=== PATIENT | male | born 1960 | race Caucasian/White ===

== ENCOUNTER 2021-11-06 14:27 | Outpatient (CLI) | payer SELFPAY | END 2021-11-06 14:28 | disposition home or self-care (01) | LOC: AMB 11-07 07:21 | PROVIDERS: Visit Provider Student in an Organized Health Care Education/Training Program | DX: R41.82 Altered mental status, unspecified (principal) ==

== ENCOUNTER 2023-08-18 20:26 | Outpatient (CLI) | payer MEDICAID, SELFPAY | END 2023-08-18 20:27 | disposition home or self-care (01) | LOC: AMB 08-23 15:11 | PROVIDERS: Visit Provider Emergency Medicine | DX: F10.20 Alcohol dependence, uncomplicated (principal) | CPT/HCPCS: A0425; A0427 ==

== ENCOUNTER 2023-08-18 21:00 | Inpatient (IN) | payer MEDICAID, SELFPAY ==
[2023-08-18] VITALS (21 sets, daily range): BP systolic 212–252; BP diastolic 126–156; PULSE 95–119; RESP 16; TEMP 36.7; O2SAT 89–99; BMI 23.9
--- NOTE | 2023-08-18 21:44 | ED.GENADULT ---
HPI - General Adult General Date Seen: 08/18/23 Chief complaint: Alcohol/Intoxication Stated complaint: ETOH Time Seen by Provider: 08/18/23 21:08 Source: patient, family, EMS, RN notes reviewed and old records reviewed Mode of arrival: EMS Limitations: other History of Present Illness HPI narrative: Patient is a 62-year-old male here with his son, brought in by ambulance after he was noted to be confused in shaky at home. He apparently quit drinking cold turkey last night, his son said he has had significant problems with withdrawal in the past so on noting this his son, with whom he lives, gave him a couple shots of alcohol. He feels like he has improved since then, the shaking has stopped any seems less confused. There is no reported trauma or head injury, no reported illness, fevers, vomiting, patient denies headache or abdominal pain. They denied anything has happened in the past day that led to him deciding to quit drinking aside from the fact that his family was upset about his alcohol use. Son says he does not use any other substances aside from smoking cigarettes. Related Data Home Medications ?Medication ?Instructions ?Recorded ?Confirmed No Known Home Medications 08/18/23 08/18/23 Allergies Allergy/AdvReac Type Severity Reaction Status Date / Time No Known Drug Allergies Allergy Verified 08/18/23 21:10 Review of Systems Status of ROS: Reports: 10 or more systems reviewed and unremarkable except as noted in History and below [facility] Social History How often do you have a drink containing alcohol: 4 or more times a week How many standard drinks containing alcohol do you have on a typical day: 5 or 6 How often do you have six or more drinks on one occasion: Daily or almost daily AUDIT-C Alcohol total score: 10 Non-prescribed substance use: denies use Exam Narrative: Exam Narrative: Vital signs as noted above. In general, an alert, thin elderly male. Looks older than his stated age. Head: Normocephalic, atraumatic. Eyes: Pupils are equal reactive. Extraocular movements are full. Conjunctivae are normal. ENT: Mucous membranes are moist. Neck: Supple without lymphadenopathy. Heart: Mildly tachycardic, regular. Lungs: Clear bilaterally. No increased work of breathing, crackles or wheezes. Abdomen: Soft and nontender. No organomegaly. Extremities: Well perfused. No edema. No calf tenderness. Pulses intact. Neurologic: Patient is alert and oriented to person and place. He did initially say that it was 1993, but when I asked him if he would be surprised that it was 2023, he said that that was what he meant. Speech is fluent. Face is symmetric. Moves all extremities equally. No tremor at this time. Affect: Normal. Skin: Warm and dry. Well perfused. Const: Vital Signs, click to edit/add: Vital Signs - 24 hr 08/18/23 21:08 08/18/23 21:41 08/18/23 21:45 Temperature 98.1 F Pulse Rate 113 H 112 H Pulse Rate [Pulse Oximeter] 104 H Respiratory Rate 16 Blood Pressure Blood Pressure [Ri ght Upper Arm] 252/135 H Pulse Oximetry 95 91 93 Oxygen Delivery Me thod Room Air Oxygen Flow Rate 08/18/23 21:48 08/18/23 22:00 08/18/23 22:03 Temperature Pulse Rate 119 H 117 H 118 H Pulse Rate [Pulse Oximeter] Respiratory Rate Blood Pressure 245/144 H 244/138 H Blood Pressure [Ri ght Upper Arm] Pulse Oximetry 92 91 Oxygen Delivery Me thod Oxygen Flow Rate 08/18/23 22:15 08/18/23 22:18 08/18/23 22:19 Temperature Pulse Rate 108 H 114 H 114 H Pulse Rate [Pulse Oximeter] Respiratory Rate Blood Pressure 236/129 H Blood Pressure [Ri ght Upper Arm] Pulse Oximetry 90 Oxygen Delivery Me thod Oxygen Flow Rate 08/18/23 22:28 08/18/23 22:30 08/18/23 22:33 Temperature Pulse Rate 112 H 117 H Pulse Rate [Pulse Oximeter] Respiratory Rate Blood Pressure 234/131 H Blood Pressure [Ri ght Upper Arm] Pulse Oximetry 97 97 91 Oxygen Delivery Me thod Room Air Nasal Cannula Nasal Cannula Oxygen Flow Rate 1 1 1 08/18/23 22:45 08/18/23 22:50 08/18/23 23:00 Temperature Pulse Rate 109 H 101 H 114 H Pulse Rate [Pulse Oximeter] Respiratory Rate Blood Pressure 217/156 H Blood Pressure [Ri ght Upper Arm] Pulse Oximetry 96 93 95 Oxygen Delivery Me thod Nasal Cannula Oxygen Flow Rate 1 08/18/23 23:03 08/18/23 23:15 08/18/23 23:18 Temperature Pulse Rate 111 H 113 H Pulse Rate [Pulse Oximeter] Respiratory Rate Blood Pressure 229/153 H 222/140 H Blood Pressure [Ri ght Upper Arm] Pulse Oximetry 93 89 94 Oxygen Delivery Me thod Room Air Room Air Room Air Oxygen Flow Rate 08/18/23 23:30 08/18/23 23:33 08/18/23 23:48 Temperature Pulse Rate 99 95 Pulse Rate [Pulse Oximeter] Respiratory Rate Blood Pressure 212/130 H 214/126 H Blood Pressure [Ri ght Upper Arm] Pulse Oximetry 97 99 Oxygen Delivery Me thod Oxygen Flow Rate 08/19/23 00:03 08/19/23 00:17 Temperature Pulse Rate 95 Pulse Rate [Pulse Oximeter] Respiratory Rate 18 Blood Pressure 209/130 H 198/118 H Blood Pressure [Ri ght Upper Arm] Pulse Oximetry 94 Oxygen Delivery Me thod Oxygen Flow Rate Documenting provider has reviewed patient's vital signs: yes Course Course ED Course: Patient presents by ambulance with altered mentation and shaking at home, improved by ingestion of alcohol. Suspect withdrawal. I did order some Ativan for here, he is not showing signs of active withdrawal right now, aside from marked hypertension and tachycardia. Note that he did have a previous visit a few years ago with confusion, was significantly hypertensive at that visit as well. Unclear whether he was ever prescribed any antihypertensive. Neurologic exam is nonfocal at this time. Diagnostic considerations include ruling out other acute processes such as acute coronary syndrome, pancreatitis, GI bleed, infection. Patient had an EKG which showed a narrow complex tachycardia, it is somewhat irregular but there appears to be P-waves. Computer reads this as a sinus tachycardia with PVCs or fusion complexes. The rate is 125. Labs were notable for [place] [address], hemoglobin of 14, normal platelets. Electrolytes notable for potassium of 2.9, I gave him 40 mEq here. Sodium is 134. BUN creatinine within normal limits. Blood sugar was 129, LFTs really unremarkable, AST of 38. Lipase was 260 and TSH was normal. Tylenol level negative blood alcohol level of 0.15. Troponin of 0.02. He had a 2 L of fluid, remained tachycardic. He was also still quite hypertensive so I elected to give him some labetalol. He says he plans to stop drinking, as such, despite absence of significant symptoms of withdrawal at this moment such as headache, tactile symptoms, anxiety, tremulousness, I do think he will need medical management of withdrawal. With his ongoing hypertension and tachycardia, he is not suitable for detox. Recommend admission to the hospital for management of alcohol withdrawal, potassium replacement, management of hypertension and tachycardia. Vital Signs Vital signs: Initial Vital Signs Temperature 98.1 F 08/18/23 21:08 Temperature Source Temporal Artery Scan 08/18/23 21:08 Pulse Rate 104 H 08/18/23 21:08 Respiratory Rate 16 08/18/23 21:08 Blood Pressure 252/135 H 08/18/23 21:08 Blood Pressure Mean 174 H 08/18/23 21:08 Blood Pressure Position Sitting 08/18/23 21:08 Pulse Oximetry 95 08/18/23 21:08 Oxygen Delivery Method Room Air 08/18/23 21:08 Vital Signs Temperature 98.1 F 08/18/23 21:08 Pulse Rate 104 H 08/18/23 21:08 Respiratory Rate 16 08/18/23 21:08 Blood Pressure 252/135 H 08/18/23 21:08 Pulse Oximetry 95 08/18/23 21:08 Oxygen Delivery Method Room Air 08/18/23 21:08 Temperature 98.1 F 08/18/23 21:08 Pulse Rate 95 08/19/23 00:17 Respiratory Rate 18 08/19/23 00:17 Blood Pressure 198/118 H 08/19/23 00:17 Pulse Oximetry 94 08/19/23 00:17 Oxygen Delivery Method Room Air 08/18/23 23:18 Oxygen Flow Rate 1 08/18/23 22:45 Medications Administered Medications: Discontinued Medications Generic Name Dose Route Start Last Admin Trade Name Freq PRN Reason Stop Dose Admin Sodium Chloride 1,000 mls @ 1,000 mls/hr 08/18/23 21:30 08/18/23 22:50 0.9 % Sodium Chloride 1000 Ml IV 08/18/23 22:29 Infused .Q1H NATALY Infusion Sodium Chloride 1,000 mls @ 1,000 mls/hr 08/18/23 23:15 08/18/23 23:12 0.9 % Sodium Chloride 1000 Ml IV 08/19/23 00:14 1,000 mls/hr .Q1H NATALY Administration Labetalol HCl 5 mg 08/18/23 23:08 08/18/23 23:22 Labetalol Hcl 5 Mg/Ml Inj IVP 08/18/23 23:09 5 mg ONCE ONE Administration Lorazepam 2 mg 08/18/23 21:19 08/18/23 22:04 Lorazepam 2 Mg/Ml Inj IVP 08/18/23 21:20 Not Given ONCE ONE Lorazepam 1 mg 08/18/23 21:48 08/18/23 22:08 Lorazepam 2 Mg/Ml Inj IVP 08/18/23 21:49 1 mg ONCE ONE Administration Potassium Chloride 40 meq 08/18/23 22:27 08/18/23 22:50 Potassium Chloride 10 Meq Capsule Er PO 08/18/23 22:28 40 meq ONCE ONE Administration Medical Decision Making Lab Data Labs: Lab Results 08/18/23 Range/Units 21:45 WBC 12.74 H (4.50-11.00) K/uL RBC 3.97 L (4.30-5.90) m/uL Hgb 14.4 (13.5-17.5) gm/dL Hct 41.8 (37.0-53.0) % MCV 105 H (80-100) fL MCH 36 H (26-34) pg MCHC 34 (32-36) gm/dL RDW Coeff of Briana 14.2 (11.5-15.5) % Plt Count 239 (140-440) K/uL Neut % (Auto) 74.5 H (42.0-72.0) % Lymph % (Auto) 17.7 L (20-44) % [place] % (Auto) 5.1 (0.0-11.0) % Eos % (Auto) 0.7 (0.0-7.0) % Baso % (Auto) 0.7 (0.0-3.0) % Neut # (Auto) 9.50 H (1.7-7.0) K/uL Lymph # (Auto) 2.30 (0.90-2.90) K/uL [place] # (Auto) 0.60 (0.00-0.90) K/UL Eos # (Auto) 0.10 (0.00-0.50) K/uL Baso # (Auto) 0.10 (0.00-0.30) K/uL Abs Immat Gran (auto) 0.20 (0.00-0.30) K/uL Imm/Tot Granulo (auto) 1.3 % Sodium 134 L (135-149) mmol/L Potassium 2.9 L* (3.6-5.1) mmol/L Chloride 97 (96-114) mmol/L Carbon Dioxide 28 (20-32) mmol/L Anion Gap 9 (7-15) mEq/L BUN 9 (7-30) mg/dL Creatinine 0.6 (0.5-1.5) mg/dL Estimated Creat Clear 60.85 Estimated GFR 108 ml/min Glucose 129 H (60-115) mg/dL Calcium 8.9 (8.4-10.6) mg/dL Total Bilirubin 0.9 (0.1-1.5) mg/dL Direct Bilirubin 0.4 (0.0-0.5) mg/dL AST 38 H (12-35) U/L ALT 13 (4-50) U/L Alkaline Phosphatase 84 (40-150) U/L Total Protein 7.7 (6.0-8.3) g/dL Albumin 4.7 (3.3-5.0) g/dL Lipase 260 (23-300) U/L TSH 2.680 (0.270-4.200) uIU/mL Acetaminophen < 10.0 L (10.0-30.0) ug/mL Ethyl Alcohol 0.15 H (0.01-0.03) % POC Troponin I 0.02 (0.01-0.04) ng/ml
[2023-08-18] MEDS: 0.9 % SODIUM CHLORIDE 1000 ml 1,000 ML IV ×2 (22:01→23:12)
[2023-08-18 22:03] LABS: Basophils Percent Auto 0.7 % (0.0-3.0); Eosinophils Percent Auto 0.7 % (0.0-7.0); Hematocrit 41.8 % (37.0-53.0); Hemoglobin* 14.4 gm/dL (13.5-17.5); Immature Granulocytes Pct Auto 1.3 %; Lymphocytes Percent Auto 17.7 % (20-44); Mean Corpuscular HGB Conc 34 gm/dL (32-36); Mean Corpuscular Hemoglobin 36 pg (26-34); Mean Corpuscular Volume 105 fL (80-100); Monocytes Percent Auto 5.1 % (0.0-11.0); Neutrophils Percent Auto 74.5 % (42.0-72.0); Platelet Count* 239 K/uL (140-440); RDW Coefficient of Variation % 14.2 % (11.5-15.5); Red Blood Count 3.97 m/uL (4.30-5.90); White Blood Count* 12.74 K/uL (4.50-11.00)
[2023-08-18 22:08] LABS: Slide Review Reflex No
[2023-08-18] MEDS: LORazepam 2 MG/ML inj 1 MG IVP (22:08)
[2023-08-18 22:16] LABS: Albumin* 4.7 g/dL (3.3-5.0)
[2023-08-18 22:17] LABS: Chloride* 97 mmol/L (96-114); Sodium* 134 mmol/L (135-149)
[2023-08-18 22:19] LABS: Alanine Aminotransferase* 13 U/L (4-50); Alkaline Phosphatase* 84 U/L (40-150); Aspartate Amino Transferase* 38 U/L (12-35); Bilirubin Direct* 0.4 mg/dL (0.0-0.5); Bilirubin Total* 0.9 mg/dL (0.1-1.5); Lipase* 260 U/L (23-300); Total Protein* 7.7 g/dL (6.0-8.3)
[2023-08-18 22:20] LABS: Anion Gap 9 mEq/L (7-15); Blood Urea Nitrogen* 9 mg/dL (7-30); Carbon Dioxide* 28 mmol/L (20-32); Creatinine* 0.6 mg/dL (0.5-1.5); Est. Creatinine Clearance* 60.85; Estimated Glomerular Filt Rate 108 ml/min; Ethanol* 0.15 % (0.01-0.03); Glucose* 129 mg/dL (60-115)
[2023-08-18 22:21] LABS: Calcium* 8.9 mg/dL (8.4-10.6)
[2023-08-18 22:23] LABS: Acetaminophen* < 10.0 ug/mL (10.0-30.0)
[2023-08-18 22:24] LABS: Potassium* 2.9 mmol/L (3.6-5.1)
[2023-08-18 22:32] LABS: Troponin, Point-of-Care* 0.02 ng/ml (0.01-0.04)
[2023-08-18] MEDS: POTASSIUM CHLORIDE 10 MEQ CAPSULE ER 40 MEQ PO (22:50)
[2023-08-18] MEDS: LABETALOL HCL 5 MG/ML inj IVP (23:22)
[2023-08-19] VITALS (26 sets, daily range): BP systolic 102–209; BP diastolic 71–130; PULSE 85–123; RESP 18–24; TEMP 36.5–37.4; O2SAT 92–96; BMI 17.9
[2023-08-19] MEDS: LORazepam 2 MG/ML inj IVP ×4 (01:22→17:58)
--- NOTE | 2023-08-19 02:02 | W.PM.THH&P_ITS ---
Telehealth- H&P: HPI History of Present Illness Date Seen: 08/19/23 Chief complaint: ETOH Narrative: José Luis Hanson is seen as an Interactive Telehealth visit. José Luis Hanson is a 62 year old male who is Seen in his hospital room at [facility] with the assistance of nursing staff. He has been admitted through the emergency room. Patient came up to the floor a little bit tremulous seem to be confused. He had a very high blood pressure. It was felt to be consistent with alcohol wit hdrawal. He was given Ativan. When I am trying to see him he is somewhat noncooperative. He is unable to provide any history. History is taken from discussion with the emergency room physician. José Luis was brought into the emergency room by his son by ambulance as he was more confused and shaky at home. He quit drinking cold turkey last night as he was confronted by family. Today he started showing symptoms alcohol withdrawal he was given 2 shots of alcohol by his son and brought into the emergency room. In the emergency room he was found to be showing signs of alcohol withdrawal he was hypertensive. He was given Ativan in the emergency room. He was noted to be tachycardic. Alcohol level came back at 0.15. He was given 2 L of IV fluid. He was still very hypertensive was given IV labetalol in the emergency room. He was felt to be too unstable to go to detox and admission was recommended. Patient is really unable or unwilling to give me any additional history. Review of Systems Narrative: A complete review of systems was performed positive pertinent and negatives in the history of present illness. Again patient historian to give significant history or review of systems [facility] Social History How often do you have a drink containing alcohol: 4 or more times a week How many standard drinks containing alcohol do you have on a typical day: 5 or 6 How often do you have six or more drinks on one occasion: Daily or almost daily AUDIT-C Alcohol total score: 10 Non-prescribed substance use: denies use Meds Home Medications and Allergies Home Medications ?Medication ?Instructions ?Recorded ?Confirmed ?Type No Known Home Medications 08/18/23 08/18/23 History Allergies Allergy/AdvReac Type Severity Reaction Status Date / Time No Known Drug Allergies Allergy Verified 08/18/23 21:10 Exam Narrative Exam Narrative: Physical Exam GENERAL: ?vital signs reviewed, well developed and nourished, in no distress, he does become somewhat agitated he is uncooperative with opening his eyes or opening his mouth HEENT: pupils are equal round and reactive to light, extraocular movements are grossly within normal limits and oral mucosa is dry [place] NECK: Supple without lymphadenopathy or thyromegaly according to nursing staff examination observation HEART: Regular rate and rhythm without any rubs, murmurs, or gallops. LUNGS: Clear to auscultation bilaterally with good air movement throughout ABDOMEN: Observation from nurse assisted exam, abdomen appears soft, nontender, and nondistended with Positive bowel sounds noted. EXTREMITIES: Strength and sensation is observed to be grossly within normal limits in the upper and lower extremities.? No focal strength deficit is observed. SKIN:? Observed warm and dry with color normal Const Vital Signs, click to edit/add: Vital Signs - 24 hr 08/18/23 21:08 08/18/23 21:41 08/18/23 21:45 Temperature 98.1 F Pulse Rate 113 H 112 H Pulse Rate [Pulse Oximeter] 104 H Respiratory Rate 16 Blood Pressure Blood Pressure [Right Arm] Blood Pressure [Right Upper Arm] 252/135 H Pulse Oximetry 95 91 93 Oxygen Delivery Method Room Air Oxygen Flow Rate 08/18/23 21:48 08/18/23 22:00 08/18/23 22:03 Temperature Pulse Rate 119 H 117 H 118 H Pulse Rate [Pulse Oximeter] Respiratory Rate Blood Pressure 245/144 H 244/138 H Blood Pressure [Right Arm] Blood Pressure [Right Upper Arm] Pulse Oximetry 92 91 Oxygen Delivery Method Oxygen Flow Rate 08/18/23 22:15 08/18/23 22:18 08/18/23 22:19 Temperature Pulse Rate 108 H 114 H 114 H Pulse Rate [Pulse Oximeter] Respiratory Rate Blood Pressure 236/129 H Blood Pressure [Right Arm] Blood Pressure [Right Upper Arm] Pulse Oximetry 90 Oxygen Delivery Method Oxygen Flow Rate 08/18/23 22:28 08/18/23 22:30 08/18/23 22:33 Temperature Pulse Rate 112 H 117 H Pulse Rate [Pulse Oximeter] Respiratory Rate Blood Pressure 234/131 H Blood Pressure [Right Arm] Blood Pressure [Right Upper Arm] Pulse Oximetry 97 97 91 Oxygen Delivery Method Room Air Nasal Cannula Nasal Cannula Oxygen Flow Rate 1 1 1 08/18/23 22:45 08/18/23 22:50 08/18/23 23:00 Temperature Pulse Rate 109 H 101 H 114 H Pulse Rate [Pulse Oximeter] Respiratory Rate Blood Pressure 217/156 H Blood Pressure [Right Arm] Blood Pressure [Right Upper Arm] Pulse Oximetry 96 93 95 Oxygen Delivery Method Nasal Cannula Oxygen Flow Rate 1 08/18/23 23:03 08/18/23 23:15 08/18/23 23:18 Temperature Pulse Rate 111 H 113 H Pulse Rate [Pulse Oximeter] Respiratory Rate Blood Pressure 229/153 H 222/140 H Blood Pressure [Right Arm] Blood Pressure [Right Upper Arm] Pulse Oximetry 93 89 94 Oxygen Delivery Method Room Air Room Air Room Air Oxygen Flow Rate 08/18/23 23:30 08/18/23 23:33 08/18/23 23:48 Temperature Pulse Rate 99 95 Pulse Rate [Pulse Oximeter] Respiratory Rate Blood Pressure 212/130 H 214/126 H Blood Pressure [Right Arm] Blood Pressure [Right Upper Arm] Pulse Oximetry 97 99 Oxygen Delivery Method Oxygen Flow Rate 08/19/23 00:03 08/19/23 00:17 08/19/23 01:06 Temperature 98.1 F Pulse Rate 95 Pulse Rate [Pulse Oximeter] Respiratory Rate 18 18 Blood Pressure 209/130 H 198/118 H Blood Pressure [Right Arm] 205/125 H Blood Pressure [Right Upper Arm] Pulse Oximetry 94 94 Oxygen Delivery Method Room Air Oxygen Flow Rate Hospitalist - H&P: Result Labs Labs: Short CBC 08/18/23 Range/Units 21:45 WBC 12.74 H (4.50-11.00) K/uL Hgb 14.4 (13.5-17.5) gm/dL Hct 41.8 (37.0-53.0) % Plt Count 239 (140-440) K/uL BMP 08/18/23 21:45 Sodium 134 L Potassium 2.9 L* Chloride 97 Carbon Dioxide 28 BUN 9 Creatinine 0.6 Glucose 129 H Calcium 8.9 Liver Function 08/18/23 Range/Units 21:45 Total Bilirubin 0.9 (0.1-1.5) mg/dL Direct Bilirubin 0.4 (0.0-0.5) mg/dL AST 38 H (12-35) U/L ALT 13 (4-50) U/L Alkaline Phosphatase 84 (40-150) U/L Albumin 4.7 (3.3-5.0) g/dL Assessment and Plan Assessment and plan (1) Alcohol withdrawal: Status: Acute (2) Hypertension: Status: Acute (3) Leukocytosis: Status: Acute (4) Hyponatremia: Status: Acute (5) Hypokalemia: Status: Acute Plan alcohol withdrawal?patient showing signs of alcohol withdrawal with level 0.15. Will place him on the [facility] Ativan withdrawal protocol. If patient continues to have symptoms phenobarb could be added. Will make sure patient has seizure precautions. hypertension?suspect secondary to alcohol withdrawal he probably does have underlying hypertension. However starting an antihypertensive while acutely going through alcohol withdrawal seems somewhat problematic to me. For now unless he is markedly elevated we will continue to treat with benzodiazepines. This can be followed up as an outpatient. Leukocytosis?likely acute demargination from stress of withdrawal. No signs of active infection. Continue to follow Hyponatremia?continue to follow recheck CBC. Hypokalemia, add on a magnesium replaced per protocol. DVT prophylaxis will use subcutaneous Lovenox. CODE STATUS is presumed full. Telehealth: Statement Statement Telehealth Visit: Today's History and Physical is provided via interactive telehealth by Rhett Wiley DO.? Patient is located at [facility].? Provider is located at [facility].? Nursing staff assisted with the patient's exam. The visit being done today meets criteria for a telehealth visit and the patient or patient?s parent/guardian is aware the visit is a telehealth visit. Camera Start Time: 01:38 Camera End Time: 01:48
[2023-08-19 04:34] LABS: Basophils Percent Auto 0.3 % (0.0-3.0); Eosinophils Percent Auto 0.2 % (0.0-7.0); Hematocrit 38.2 % (37.0-53.0); Hemoglobin* 13.3 gm/dL (13.5-17.5); Immature Granulocytes Pct Auto 0.5 %; Lymphocytes Percent Auto 13.7 % (20-44); Mean Corpuscular HGB Conc 35 gm/dL (32-36); Mean Corpuscular Hemoglobin 37 pg (26-34); Mean Corpuscular Volume 105 fL (80-100); Monocytes Percent Auto 5.7 % (0.0-11.0); Neutrophils Percent Auto 79.6 % (42.0-72.0); Platelet Count* 253 K/uL (140-440); RDW Coefficient of Variation % 13.9 % (11.5-15.5); Red Blood Count 3.64 m/uL (4.30-5.90); White Blood Count* 13.23 K/uL (4.50-11.00)
[2023-08-19 04:36] LABS: Slide Review Reflex No
[2023-08-19 04:39] LABS: Chloride* 99 mmol/L (96-114); Sodium* 132 mmol/L (135-149)
[2023-08-19 04:42] LABS: Anion Gap 8 mEq/L (7-15); Blood Urea Nitrogen* 6 mg/dL (7-30); Carbon Dioxide* 25 mmol/L (20-32); Creatinine* 0.6 mg/dL (0.5-1.5); Est. Creatinine Clearance* 60.85; Estimated Glomerular Filt Rate 108 ml/min; Glucose* 124 mg/dL (60-115)
[2023-08-19] MEDS: THIAMINE 100 MG TABLET PO (08:55)
[2023-08-19] MEDS: MULTIVITAMIN/MINERALS 1 TABLET 1 TAB PO (08:55)
[2023-08-19] MEDS: FOLIC ACID 1 MG TABLET PO (08:55)
[2023-08-19] MEDS: lisinopriL 5 MG TABLET PO (08:55)
[2023-08-19] MEDS: LACTATED RINGERS 1000 ML 1,000 ML IV (08:59)
[2023-08-19] MEDS: MAGNESIUM IV 4 GM/100 ML PIGGYBACK IVPB (09:02)
--- NOTE | 2023-08-19 09:06 | PM.IMPN1 ---
Progress Note: A&P Assessment and plan (1) Alcohol withdrawal: Problem details: continue CIWA protocol; continue thiamine start phenobarbital, SW consult prior to discharge Status: Acute (2) Hypokalemia: Problem details: continue electrolyte replacement including mg replacement Status: Acute (3) Hyponatremia: Problem details: Sodium 132, continue to monitor asymptomatic and mildly low Status: Acute (4) Leukocytosis: Problem details: check UA and CXR, repeat CBC in AM, afebrile Status: Acute (5) Hypertension: Problem details: start lisinopril and prn hydralazine Status: Acute Plan anticipated discharge 1-2 days hopefully to home pending treatment of alcohol withdrawal symptoms Subjective Date Seen: 08/19/23 Interval history: patient admitted overnight for alcohol withdrawal denies hallucinations denies nausea, vomiting Hypertensive and tachycardic this morning Exam Narrative: Exam Narrative: Gen: no acute distress HEENT: NCAT EOMI mmm Neck: Supple CV: tachycardic normal s1 s2 Lungs: CTAB Abd: Soft,nt, nd Neuro: Alert, oriented, CN grossly intact; fine hand tremors Psych: appropriate affect MSK: age appropriate muscle mass Skin; Warm, dry no rash on face Const: Vital Signs, click to edit/add: Vital Signs - 24 hr 08/18/23 21:08 08/18/23 21:41 08/18/23 21:45 Temperature 98.1 F Pulse Rate 113 H 112 H Pulse Rate [Apical ] Pulse Rate [Pulse Oximeter] 104 H Respiratory Rate 16 Blood Pressure Blood Pressure [Ri ght Arm] Blood Pressure [Ri ght Upper Arm] 252/135 H Pulse Oximetry 95 91 93 Oxygen Delivery Me thod Room Air Oxygen Flow Rate 08/18/23 21:48 08/18/23 22:00 08/18/23 22:03 Temperature Pulse Rate 119 H 117 H 118 H Pulse Rate [Apical ] Pulse Rate [Pulse Oximeter] Respiratory Rate Blood Pressure 245/144 H 244/138 H Blood Pressure [Ri ght Arm] Blood Pressure [Ri ght Upper Arm] Pulse Oximetry 92 91 Oxygen Delivery Me thod Oxygen Flow Rate 08/18/23 22:15 08/18/23 22:18 08/18/23 22:19 Temperature Pulse Rate 108 H 114 H 114 H Pulse Rate [Apical ] Pulse Rate [Pulse Oximeter] Respiratory Rate Blood Pressure 236/129 H Blood Pressure [Ri ght Arm] Blood Pressure [Ri ght Upper Arm] Pulse Oximetry 90 Oxygen Delivery Me thod Oxygen Flow Rate 08/18/23 22:28 08/18/23 22:30 08/18/23 22:33 Temperature Pulse Rate 112 H 117 H Pulse Rate [Apical ] Pulse Rate [Pulse Oximeter] Respiratory Rate Blood Pressure 234/131 H Blood Pressure [Ri ght Arm] Blood Pressure [Ri ght Upper Arm] Pulse Oximetry 97 97 91 Oxygen Delivery Me thod Room Air Nasal Cannula Nasal Cannula Oxygen Flow Rate 1 1 1 08/18/23 22:45 08/18/23 22:50 08/18/23 23:00 Temperature Pulse Rate 109 H 101 H 114 H Pulse Rate [Apical ] Pulse Rate [Pulse Oximeter] Respiratory Rate Blood Pressure 217/156 H Blood Pressure [Ri ght Arm] Blood Pressure [Ri ght Upper Arm] Pulse Oximetry 96 93 95 Oxygen Delivery Me thod Nasal Cannula Oxygen Flow Rate 1 08/18/23 23:03 08/18/23 23:15 08/18/23 23:18 Temperature Pulse Rate 111 H 113 H Pulse Rate [Apical ] Pulse Rate [Pulse Oximeter] Respiratory Rate Blood Pressure 229/153 H 222/140 H Blood Pressure [Ri ght Arm] Blood Pressure [Ri ght Upper Arm] Pulse Oximetry 93 89 94 Oxygen Delivery Me thod Room Air Room Air Room Air Oxygen Flow Rate 08/18/23 23:30 08/18/23 23:33 08/18/23 23:48 Temperature Pulse Rate 99 95 Pulse Rate [Apical ] Pulse Rate [Pulse Oximeter] Respiratory Rate Blood Pressure 212/130 H 214/126 H Blood Pressure [Ri ght Arm] Blood Pressure [Ri ght Upper Arm] Pulse Oximetry 97 99 Oxygen Delivery Me thod Oxygen Flow Rate 08/19/23 00:03 08/19/23 00:17 08/19/23 00:53 Temperature 97.7 F Pulse Rate 95 Pulse Rate [Apical ] 96 Pulse Rate [Pulse Oximeter] Respiratory Rate 18 18 Blood Pressure 209/130 H 198/118 H Blood Pressure [Ri ght Arm] 205/125 H Blood Pressure [Ri ght Upper Arm] Pulse Oximetry 94 92 Oxygen Delivery Me thod Room Air Oxygen Flow Rate 08/19/23 00:53 08/19/23 01:06 08/19/23 01:30 Temperature 98.1 F 98.8 F Pulse Rate Pulse Rate [Apical ] 98 Pulse Rate [Pulse Oximeter] Respiratory Rate 18 18 18 Blood Pressure Blood Pressure [Ri ght Arm] 205/125 H 174/101 H Blood Pressure [Ri ght Upper Arm] Pulse Oximetry 94 92 Oxygen Delivery Me thod Room Air Room Air Oxygen Flow Rate 08/19/23 02:30 08/19/23 02:43 08/19/23 03:30 Temperature 98.1 F 99.2 F Pulse Rate 103 H Pulse Rate [Apical ] 106 H 102 H Pulse Rate [Pulse Oximeter] Respiratory Rate 18 18 Blood Pressure Blood Pressure [Ri ght Arm] 173/128 H 167/130 H Blood Pressure [Ri ght Upper Arm] Pulse Oximetry 94 96 Oxygen Delivery Me thod Room Air Room Air Oxygen Flow Rate 86 1 08/19/23 04:55 08/19/23 07:00 Temperature 99.2 F 99.4 F Pulse Rate Pulse Rate [Apical ] 107 H 106 H Pulse Rate [Pulse Oximeter] Respiratory Rate 18 18 Blood Pressure Blood Pressure [Ri ght Arm] 183/115 H 179/119 H Blood Pressure [Ri ght Upper Arm] Pulse Oximetry 95 94 Oxygen Delivery Me thod Room Air Oxygen Flow Rate 1 1 Labs Labs: Laboratory Results - last 24 hr 08/18/23 08/19/23 21:45 04:20 WBC 12.74 H 13.23 H RBC 3.97 L 3.64 L Hgb 14.4 13.3 L Hct 41.8 38.2 MCV 105 H 105 H MCH 36 H 37 H MCHC 34 35 RDW Coeff of Briana 14.2 13.9 Plt Count 239 253 Neut % (Auto) 74.5 H 79.6 H Lymph % (Auto) 17.7 L 13.7 L [place] % (Auto) 5.1 5.7 Eos % (Auto) 0.7 0.2 Baso % (Auto) 0.7 0.3 Neut # (Auto) 9.50 H 10.50 H Lymph # (Auto) 2.30 1.80 [place] # (Auto) 0.60 0.80 Eos # (Auto) 0.10 0.00 Baso # (Auto) 0.10 0.00 Abs Immat Gran (auto) 0.20 0.10 Imm/Tot Granulo (auto) 1.3 0.5 Sodium 134 L 132 L Potassium 2.9 L* 4.0 Chloride 97 99 Carbon Dioxide 28 25 Anion Gap 9 8 BUN 9 6 L Creatinine 0.6 0.6 Estimated Creat Clear 60.85 60.85 Estimated GFR 108 108 Glucose 129 H 124 H Calcium 8.9 8.0 L Magnesium 1.0 L Total Bilirubin 0.9 Direct Bilirubin 0.4 AST 38 H ALT 13 Alkaline Phosphatase 84 Total Protein 7.7 Albumin 4.7 Lipase 260 TSH 2.680 Acetaminophen < 10.0 L Ethyl Alcohol 0.15 H POC Troponin I 0.02
--- NOTE | 2023-08-19 09:08 | CRLHL7_ITS ---
For Patients: As a result of the Cures Act, medical imaging exams and procedure reports are released immediately into your electronic medical record. You may view this report before your referring provider. If you have questions, please contact your health care provider. INDICATION: Leukocytosis, question pneumonia TECHNIQUE: 1 view chest radiograph COMPARISON: 02/26/2021 FINDINGS: Devices: None. Lung volumes are good. Diffuse patchy parahilar opacities with a small amount of peribronchial thickening in the perihilar left lung. No dense consolidation. No pleural effusion. No pneumothorax. Heart size is normal. IMPRESSION: Findings most consistent with a viral or atypical pneumonia. Dictated by Xiomy Murcia MD @ 08/19/2023 10:14:42 AM (Electronically Signed)
[2023-08-19] MEDS: SODIUM CHLORIDE 0.9 % (FLUSH) 10 ML SYRINGE 5 ML IVF ×2 (09:45→20:52)
[2023-08-19] MEDS: PHENobarbitaL 130 MG in 0.9 % SODIUM CHLORIDE 100 ml 100 ML 204 MG IVPB ×2 (10:35→20:52)
--- NOTE | 2023-08-19 12:45 | REH.OT ---
Communicated with MD, pt not currently appropriate for OT evaluation secondary to symptomatic withdrawals, medication and resting. Will resume efforts when medically appropriate.
--- NOTE | 2023-08-19 14:41 | REH.PT ---
Pt not appropriate for PT evaluation today per nursing. Will re-attempt evaluation tomorrow.
[2023-08-19 17:39] LABS: Appearance Urine Clear (Clear); Bilirubin Urine Negative (Negative); Blood Urine Negative (Negative); Color Urine Yellow (Yellow); Glucose Urine Negative (Negative); Ketones Urine Negative (Negative); Leukocyte Esterase Urine Negative (Negative); Nitrite Urine Negative (Negative); Protein Urine Negative (Negative); pH Urine 7.5 (5.0-8.5)
[2023-08-19] MEDS: HYDRALAZINE HCL 20 MG/ML inj 10 MG IVP (17:58)
[2023-08-20] VITALS (19 sets, daily range): BP systolic 123–202; BP diastolic 84–127; PULSE 73–88; RESP 16–22; TEMP 36.7–37.1; O2SAT 92–98
[2023-08-20] MEDS: LORazepam 2 MG/ML inj IVP (03:03)
[2023-08-20] MEDS: SODIUM CHLORIDE 0.9 % (FLUSH) 10 ML SYRINGE 5 ML IVF ×3 (03:04→20:16)
[2023-08-20 06:32] LABS: Basophils Percent Auto 0.4 % (0.0-3.0); Eosinophils Percent Auto 1.1 % (0.0-7.0); Hematocrit 38.5 % (37.0-53.0); Hemoglobin* 13.4 gm/dL (13.5-17.5); Immature Granulocytes Pct Auto 0.3 %; Lymphocytes Percent Auto 24.7 % (20-44); Mean Corpuscular HGB Conc 35 gm/dL (32-36); Mean Corpuscular Hemoglobin 37 pg (26-34); Mean Corpuscular Volume 105 fL (80-100); Monocytes Percent Auto 7.9 % (0.0-11.0); Neutrophils Percent Auto 65.6 % (42.0-72.0); Platelet Count* 260 K/uL (140-440); RDW Coefficient of Variation % 13.9 % (11.5-15.5); Red Blood Count 3.67 m/uL (4.30-5.90); White Blood Count* 11.82 K/uL (4.50-11.00)
--- NOTE | 2023-08-20 06:36 | PC.NURSE ---
[id number]: Patient fatigued and sleep with intermittent restlessness. CIWA's ranging from 5-11 with PRN Ativan administered x1. Alert to self and . At 0615 patient also alert to place and month but did not want to guess the year. Incontinent of urine. A2/walker/GB.
[2023-08-20 06:48] LABS: Slide Review Reflex No
[2023-08-20 06:55] LABS: Albumin* 3.9 g/dL (3.3-5.0)
[2023-08-20 06:56] LABS: Chloride* 100 mmol/L (96-114); Potassium* 3.3 mmol/L (3.6-5.1); Sodium* 132 mmol/L (135-149)
[2023-08-20 06:58] LABS: Anion Gap 5 mEq/L (7-15); Aspartate Amino Transferase* 29 U/L (12-35); Bilirubin Total* 1.2 mg/dL (0.1-1.5); Carbon Dioxide* 27 mmol/L (20-32); Creatinine* 0.7 mg/dL (0.5-1.5); Est. Creatinine Clearance* 49.38; Estimated Glomerular Filt Rate 104 ml/min
[2023-08-20 06:59] LABS: Alanine Aminotransferase* 13 U/L (4-50); Alkaline Phosphatase* 80 U/L (40-150); Blood Urea Nitrogen* 9 mg/dL (7-30); Calcium* 8.7 mg/dL (8.4-10.6); Glucose* 91 mg/dL (60-115); Magnesium* 2.3 mg/dL (1.5-2.6); Phosphorus* 3.6 mg/dL (2.5-4.5); Total Protein* 6.8 g/dL (6.0-8.3)
[2023-08-20 08:25] LABS: Procalcitonin* 0.09 ng/mL (<0.50)
--- NOTE | 2023-08-20 09:20 | PM.IMPN1 ---
Progress Note: A&P Assessment and plan (1) Alcohol withdrawal: Problem details: continue CIWA protocol; continue thiamine start phenobarbital, SW consult prior to discharge Status: Acute (2) Hypokalemia: Problem details: continue electrolyte replacement including mg replacement Status: Acute (3) Hyponatremia: Problem details: Sodium 132, continue to monitor asymptomatic and mildly low Status: Acute (4) Hypertension: Problem details: start lisinopril and prn hydralazine 08/19: increase lisinopril to 10 mg daily Status: Acute (5) Leukocytosis: Problem details: check UA and CXR, repeat CBC in AM, afebrile 08/19: CXR with viral vs atypical pna; start doxycline,ceftriaxone, check procal and covid pcr Status: Acute Plan Plan anticipated discharge 2-3 days pending resolution of withdrawal symptoms Subjective Date Seen: 08/20/23 Interval history: patient agitated this morning was orignally not oriented continues to have alcohol withdrawal Exam Narrative: Exam Narrative: Gen: no acute dist ress HEENT: NCAT E CANDICE mmm CV: RRR no rmal s1 s2 Lungs: CTAB Abd: Soft,nt, nd Neuro: Alert, not oriented, Psy ch: agitated MSK:d ecreased muscle ma ss Const: Vital Signs, click to edit/add: Vital Signs - 24 hr 08/19/23 10:00 08/19/23 11:00 08/19/23 11:00 Temperature 99.2 F 99.2 F 99.4 F Pulse Rate Pulse Rate [Apical ] 101 H 93 93 Respiratory Rate 18 18 18 Blood Pressure [Ri ght Arm] 160/109 H 165/107 H 165/107 H Pulse Oximetry 94 94 94 Oxygen Delivery Me thod Room Air Room Air Room Air Oxygen Flow Rate 08/19/23 12:00 08/19/23 12:07 08/19/23 14:00 Temperature 98.2 F 98.2 F Pulse Rate 95 Pulse Rate [Apical ] 87 93 Respiratory Rate 18 18 Blood Pressure [Ri ght Arm] 166/97 H 163/102 H Pulse Oximetry 93 94 Oxygen Delivery Me thod Room Air Room Air Oxygen Flow Rate 08/19/23 15:00 08/19/23 15:00 08/19/23 16:00 Temperature 98.2 F 98.2 F Pulse Rate Pulse Rate [Apical ] 93 85 85 Respiratory Rate 18 18 18 Blood Pressure [Ri ght Arm] 179/109 H 179/109 H Pulse Oximetry 94 94 Oxygen Delivery Me thod Room Air Room Air Oxygen Flow Rate 08/19/23 18:08 08/19/23 19:00 08/19/23 19:38 Temperature 98.4 F 98.4 F Pulse Rate Pulse Rate [Apical ] 100 99 99 Respiratory Rate 18 24 24 Blood Pressure [Ri ght Arm] 190/113 H 102/71 102/71 Pulse Oximetry 93 94 94 Oxygen Delivery Me thod Room Air Room Air Room Air Oxygen Flow Rate 08/19/23 20:00 08/19/23 21:02 08/19/23 22:00 Temperature 99.2 F 99.2 F 98.1 F Pulse Rate Pulse Rate [Apical ] 90 90 90 Respiratory Rate 22 22 22 Blood Pressure [Ri ght Arm] 109/92 H 109/92 H 144/90 H Pulse Oximetry 92 92 92 Oxygen Delivery Me thod Room Air Room Air Room Air Oxygen Flow Rate 08/19/23 23:00 08/19/23 23:13 08/20/23 00:26 Temperature 98.1 F Pulse Rate 85 Pulse Rate [Apical ] 90 76 Respiratory Rate 22 20 Blood Pressure [Ri ght Arm] 144/90 H 134/88 Pulse Oximetry 92 92 Oxygen Delivery Me thod Room Air Room Air Oxygen Flow Rate 08/20/23 01:14 08/20/23 02:58 08/20/23 02:59 Temperature 98.1 F 98.0 F 98.0 F Pulse Rate Pulse Rate [Apical ] 76 86 86 Respiratory Rate 20 22 22 Blood Pressure [Ri ght Arm] 134/88 162/100 H 162/100 H Pulse Oximetry 92 95 95 Oxygen Delivery Me thod Room Air Room Air Room Air Oxygen Flow Rate 08/20/23 04:00 08/20/23 04:00 08/20/23 06:14 Temperature 98.8 F Pulse Rate Pulse Rate [Apical ] 81 81 88 Respiratory Rate 18 18 20 Blood Pressure [Ri ght Arm] 123/84 123/84 175/106 H Pulse Oximetry 97 Oxygen Delivery Me thod Room Air Oxygen Flow Rate 08/20/23 06:15 08/20/23 07:00 08/20/23 08:17 Temperature 98.8 F 98.8 F 98.8 F Pulse Rate Pulse Rate [Apical ] 88 83 83 Respiratory Rate 20 18 18 Blood Pressure [Ri ght Arm] 175/106 H 168/105 H 168/105 H Pulse Oximetry 97 98 98 Oxygen Delivery Me thod Room Air Room Air Room Air Oxygen Flow Rate 1 Labs Labs: Laboratory Results - last 24 hr 08/19/23 08/20/23 Unknown 06:00 WBC 11.82 H RBC 3.67 L Hgb 13.4 L Hct 38.5 MCV 105 H MCH 37 H MCHC 35 RDW Coeff of Briana 13.9 Plt Count 260 Neut % (Auto) 65.6 Lymph % (Auto) 24.7 [place] % (Auto) 7.9 Eos % (Auto) 1.1 Baso % (Auto) 0.4 Neut # (Auto) 7.80 H Lymph # (Auto) 2.90 [place] # (Auto) 0.90 Eos # (Auto) 0.10 Baso # (Auto) 0.00 Abs Immat Gran (auto) 0.00 Imm/Tot Granulo (auto) 0.3 Sodium 132 L Potassium 3.3 L Chloride 100 Carbon Dioxide 27 Anion Gap 5 L BUN 9 Creatinine 0.7 Estimated Creat Clear 49.38 Estimated GFR 104 Glucose 91 Calcium 8.7 Phosphorus 3.6 Magnesium 2.3 Total Bilirubin 1.2 AST 29 ALT 13 Alkaline Phosphatase 80 Total Protein 6.8 Albumin 3.9 Procalcitonin 0.09 Urine Color Yellow Urine Appearance Clear Urine pH 7.5 Ur Specific [place] 1.020 Urine Protein Negative Urine Glucose (UA) Negative Urine Ketones Negative Urine Blood Negative Urine Nitrite Negative Urine Bilirubin Negative Urine Urobilinogen 4.0 A Ur Leukocyte Esterase Negative
[2023-08-20] MEDS: FOLIC ACID 1 MG TABLET PO (09:21)
[2023-08-20] MEDS: POTASSIUM CHLORIDE 10 MEQ CAPSULE ER 40 MEQ PO (09:21)
[2023-08-20] MEDS: MULTIVITAMIN/MINERALS 1 TABLET 1 TAB PO (09:22)
[2023-08-20] MEDS: DOXYCYCLINE HYCLATE 100 MG PO ×2 (09:22→20:16)
[2023-08-20] MEDS: THIAMINE 100 MG TABLET PO (09:22)
[2023-08-20] MEDS: PHENobarbitaL 130 MG in 0.9 % SODIUM CHLORIDE 100 ml 100 ML 204 MG IVPB ×2 (09:22→20:16)
[2023-08-20] MEDS: lisinopriL 5 MG TABLET 10 MG PO (09:24)
--- NOTE | 2023-08-20 10:21 | REH.OT ---
Patient not appropriate for OT evaluation today. Will assess when patient able to fully participate.
[2023-08-20] MEDS: cefTRIAXone 2 GM in 0.9 % SODIUM CHLORIDE Mini-bag 100 ML IVPB (10:38)
[2023-08-20 13:17] LABS: PCR FLU A Negative PCR FLU A (Negative); PCR FLU B Negative PCR FLU B (Negative); PCR RSV Negative PCR RSV (Negative); SARS PCR* Negative SARS-CoV-2 (Negative)
--- NOTE | 2023-08-20 13:41 | REH.OT ---
Attempted to see patient this afternoon. Pt BP high, pt sleeping with 1:1 present. Will hold OT today, and resume efforts once pt more medically appropriate.
--- NOTE | 2023-08-20 18:30 | PC.NURSE ---
End of shift-- Pt has been primarily cooperative. Very drowsy today, but alert and oriented to person and at times to place, month and year. He sleeps between cares. VSS, though hypertensive with B/P as high as 202 systolically. was notified and saw pt at bedside. B/P dropped to 180s systolic by recheck. CIWAs 5 and under today and pt was given only scheduled phenobarbital today for withdrawal symptoms. Coarse, expiratory wheezes auscultated in all lung cox this afternoon. Occasional non-productive cough noted. Telemetry shows NSR. He denied any nausea, but appetite has been poor. He ate about 25% of a regular diet for lunch today with minimal assistance and tolerated it well, but has refused any other food. He was up with PT and walker today and stood at bedside for urinal with assist of 1-2. He tolerated it fair, but pt is very unsteady on his feet and is a high risk for falling. Partial bed bath completed. Pt refused oral cares.
[2023-08-21] VITALS (16 sets, daily range): BP systolic 133–201; BP diastolic 91–117; PULSE 68–91; RESP 16–24; TEMP 36.4–37.2; O2SAT 93–99
[2023-08-21] MEDS: SODIUM CHLORIDE 0.9 % (FLUSH) 10 ML SYRINGE 5 ML IVF ×3 (00:56→19:38)
[2023-08-21] MEDS: LORazepam 2 MG/ML inj IVP ×3 (00:56→04:51)
[2023-08-21 06:43] LABS: Basophils Percent Auto 0.7 % (0.0-3.0); Eosinophils Percent Auto 1.5 % (0.0-7.0); Hematocrit 39.2 % (37.0-53.0); Hemoglobin* 13.4 gm/dL (13.5-17.5); Immature Granulocytes Pct Auto 0.8 %; Lymphocytes Percent Auto 20.6 % (20-44); Mean Corpuscular HGB Conc 34 gm/dL (32-36); Mean Corpuscular Hemoglobin 37 pg (26-34); Mean Corpuscular Volume 107 fL (80-100); Monocytes Percent Auto 8.7 % (0.0-11.0); Neutrophils Percent Auto 67.7 % (42.0-72.0); Platelet Count* 217 K/uL (140-440); RDW Coefficient of Variation % 14.1 % (11.5-15.5); Red Blood Count 3.66 m/uL (4.30-5.90); White Blood Count* 11.73 K/uL (4.50-11.00)
--- NOTE | 2023-08-21 06:44 | PC.NURSE ---
[id number]: Patient restless removing gown, tele, pulse ox, and BP cuff several times. Some agitation. CIWAs ranging 5-13 with PRN Ativan administered x3. Patient unhappy with being here and frequently swearing at staff. A2/walker/GB. Weak and unpredictable with movements, leaning forward with an unstable gait. BP remain high with MD aware.
[2023-08-21 06:47] LABS: Slide Review Reflex No
[2023-08-21] MEDS: DOXYCYCLINE HYCLATE 100 MG PO ×2 (07:43→21:05)
[2023-08-21] MEDS: FOLIC ACID 1 MG TABLET PO (07:43)
[2023-08-21] MEDS: MULTIVITAMIN/MINERALS 1 TABLET 1 TAB PO (07:44)
[2023-08-21] MEDS: THIAMINE 100 MG TABLET PO (07:44)
[2023-08-21] MEDS: cefTRIAXone 2 GM in 0.9 % SODIUM CHLORIDE Mini-bag 100 ML IVPB (07:44)
[2023-08-21] MEDS: lisinopriL 20 MG TABLET PO (07:44)
[2023-08-21] MEDS: PHENobarbitaL 130 MG in 0.9 % SODIUM CHLORIDE 100 ml 100 ML 204 MG IVPB ×2 (07:49→21:05)
--- NOTE | 2023-08-21 09:33 | NUTR.NU ---
RDN with nutrition follow-up related to underwight BMI. Per IDT, patient continues with withdrawal and not appropriate to visit at this time. No new weight to assess since admit (101lb 9.6oz). Current diet is Regular. Meal intakes since admit have been inadequate, 0-25%. No nutrition interventions at this time. RDN will continue to monitor and follow-up prn.
--- NOTE | 2023-08-21 11:24 | PM.IMPN1 ---
Progress Note: A&P Assessment and plan (1) Alcohol withdrawal: Problem details: continue CIWA protocol; continue thiamine start phenobarbital, SW consult prior to discharge Status: Acute (2) Hyponatremia: Problem details: continue to monitor asymptomatic and mildly low Status: Acute (3) Hypertension: Problem details: start lisinopril and prn hydralazine 08/19: increase lisinopril to 10 mg daily 08/20: lisinopril increased to 20 mg daily; start norvasc Status: Acute (4) Leukocytosis: Problem details: check UA and CXR, repeat CBC in AM, afebrile 08/19: CXR with viral vs atypical pna; start doxycline,ceftriaxone, check procal and covid pcr 08/20: Covid pcr negative Status: Acute (5) Hypokalemia: Problem details: continue electrolyte replacement including mg replacement Status: Acute Plan anticipated discharge to home 2-3 days once withdrawal symptoms improve resolve Subjective Date Seen: 08/21/23 Interval history: Patient scoring upto 13 on CIWA continues CIWA protocol Hypertensive this Am; lisinopril increased alert oriented this morning Exam Narrative: Exam Narrative: Gen: no acute distress HEENT: NCAT EOMI mmm CV: RRR normal s1 s2 Lungs: CTAB Abd: Soft,nt, nd Neuro: Alert, oriented, CN grossly intact; +hand tremors Psych: poor insight MSK: age appropriate muscle mass Skin; Warm, dry no rash on face Const: Vital Signs, click to edit/add: Vital Signs - 24 hr 08/20/23 11:36 08/20/23 15:00 08/20/23 15:00 Temperature 98.4 F 98.5 F 98.5 F Pulse Rate Pulse Rate [Apical ] 82 Pulse Rate [Pulse Oximeter] 82 82 Respiratory Rate 16 16 16 Blood Pressure [Le ft Arm] Blood Pressure [Ri ght Arm] 176/113 H 202/127 H 202/127 H Pulse Oximetry 97 95 95 Oxygen Delivery Me thod Room Air Room Air Room Air 08/20/23 15:00 08/20/23 16:20 08/20/23 16:56 Temperature Pulse Rate 84 Pulse Rate [Apical ] Pulse Rate [Pulse Oximeter] 82 82 Respiratory Rate 16 18 Blood Pressure [Le ft Arm] 182/114 H Blood Pressure [Ri ght Arm] Pulse Oximetry 98 Oxygen Delivery Me thod Room Air 08/20/23 20:11 08/20/23 20:12 08/20/23 22:59 Temperature 98.6 F 98.6 F 98.2 F Pulse Rate Pulse Rate [Apical ] Pulse Rate [Pulse Oximeter] 85 85 74 Respiratory Rate 22 22 22 Blood Pressure [Le ft Arm] 177/96 H 177/96 H 185/100 H Blood Pressure [Ri ght Arm] Pulse Oximetry 96 96 94 Oxygen Delivery Ia thod Room Air Room Air Room Air 08/20/23 23:00 08/21/23 00:58 08/21/23 02:05 Temperature 99.0 F Pulse Rate 78 Pulse Rate [Apical ] Pulse Rate [Pulse Oximeter] 79 69 Respiratory Rate 24 22 Blood Pressure [Le ft Arm] 188/111 H 184/104 H Blood Pressure [Ri ght Arm] Pulse Oximetry 96 95 Oxygen Delivery Ia thod Room Air Room Air 08/21/23 03:04 08/21/23 03:09 08/21/23 04:33 Temperature 98.4 F 98.4 F Pulse Rate Pulse Rate [Apical ] Pulse Rate [Pulse Oximeter] 74 74 68 Respiratory Rate 22 22 24 Blood Pressure [Le ft Arm] 194/111 H Blood Pressure [Ri ght Arm] 182/117 H 182/117 H Pulse Oximetry 95 95 94 [facility] Room Air 08/21/23 05:07 08/21/23 07:00 08/21/23 07:00 Temperature 97.8 F Pulse Rate 78 Pulse Rate [Apical ] Pulse Rate [Pulse Oximeter] 73 82 Respiratory Rate 24 16 Blood Pressure [Le ft Arm] 171/100 H 201/116 H Blood Pressure [Ri ght Arm] Pulse Oximetry 93 Oxygen Delivery Ia thod Room Air 08/21/23 07:00 08/21/23 09:00 Temperature Pulse Rate Pulse Rate [Apical ] Pulse Rate [Pulse Oximeter] 82 83 Respiratory Rate 16 16 Blood Pressure [Le ft Arm] 191/112 H Blood Pressure [Ri ght Arm] Pulse Oximetry 95 Oxygen Delivery Ia thod Room Air Labs Labs: Laboratory Results - last 24 hr 08/20/23 08/21/23 12:11 06:34 WBC 11.73 H RBC 3.66 L Hgb 13.4 L Hct 39.2 MCV 107 H MCH 37 H MCHC 34 RDW Coeff of Briana 14.1 Plt Count 217 Neut % (Auto) 67.7 Lymph % (Auto) 20.6 [place] % (Auto) 8.7 Eos % (Auto) 1.5 Baso % (Auto) 0.7 Neut # (Auto) 7.90 H Lymph # (Auto) 2.40 [place] # (Auto) 1.00 H Eos # (Auto) 0.20 Baso # (Auto) 0.10 Abs Immat Gran (auto) 0.10 Imm/Tot Granulo (auto) 0.8 SARS-CoV-2 (PCR) Negative SARS-CoV-2 Influenza Type A (PCR) Negative PCR FLU A Influenza Type B (PCR) Negative PCR FLU B RSV (PCR) Negative PCR RSV
[2023-08-21 11:38] LABS: Albumin* 3.7 g/dL (3.3-5.0); Chloride* 105 mmol/L (96-114); Potassium* 3.7 mmol/L (3.6-5.1); Sodium* 133 mmol/L (135-149)
[2023-08-21 11:40] LABS: Bilirubin Total* 0.8 mg/dL (0.1-1.5); Creatinine* 0.7 mg/dL (0.5-1.5); Est. Creatinine Clearance* 49.29; Estimated Glomerular Filt Rate 104 ml/min
[2023-08-21 11:41] LABS: Alanine Aminotransferase* 12 U/L (4-50); Alkaline Phosphatase* 76 U/L (40-150); Anion Gap 5 mEq/L (7-15); Aspartate Amino Transferase* 29 U/L (12-35); Blood Urea Nitrogen* 10 mg/dL (7-30); Calcium* 8.8 mg/dL (8.4-10.6); Carbon Dioxide* 23 mmol/L (20-32); Glucose* 82 mg/dL (60-115); Total Protein* 6.6 g/dL (6.0-8.3)
[2023-08-21] MEDS: AMLODIPINE 10 MG TABLET PO (12:26)
[2023-08-21] MEDS: HYDRALAZINE HCL 20 MG/ML inj 10 MG IVP (19:38)
--- NOTE | 2023-08-21 19:57 | PC.NURSE ---
At 1910 patient was found to be up out of the chair without assistance. Pt had unsteady gait. A nurse entered the room as the patient steadied himself on the wall and lowered his right knee to the ground with assistance from staff. Pt was then assisted up by 2 staff members and helped back to the chair. No injuries were visualized. Pt does not report any injuries. VSS.
[2023-08-22] VITALS (8 sets, daily range): BP systolic 142–197; BP diastolic 87–115; PULSE 77–100; RESP 16–18; TEMP 36.2–36.8; O2SAT 96–98
--- NOTE | 2023-08-22 05:48 | PC.NURSE ---
Shift note: Pt continue to be confuse and disoriented. Bed alarm on to prevent falls. Mild anxiety at 2100 which got better after the scheduled Phenobarb given. No headache, agitation or N/V recorded. Pt had adequate sleep, Woke up few times feeling confuse and disoriented. He has been asking where am I. Quickly fall back to sleep after re-oriented. Bp was high at the start of the shift. Hydralazine given which was effective. No Ativan given tonight per the CWAIR protocol.
[2023-08-22 06:38] LABS: Basophils Absolute Auto 0.08 K/uL (0.00-0.30); Basophils Percent Auto 0.7 % (0.0-3.0); Eosinophils Absolute Auto 0.21 K/uL (0.00-0.50); Hematocrit 38.8 % (37.0-53.0); Hemoglobin* 13.6 gm/dL (13.5-17.5); Immature Granulocytes Abs Auto 0.13 K/uL (0.00-0.30); Immature Granulocytes Pct Auto 1.2 %; Lymphocytes Percent Auto 19.6 % (20-44); Mean Corpuscular HGB Conc 35 gm/dL (32-36); Mean Corpuscular Hemoglobin 37 pg (26-34); Mean Corpuscular Volume 106 fL (80-100); Monocytes Percent Auto 10.3 % (0.0-11.0); Neutrophils Absolute Auto 7.12 K/uL (1.7-7.0); Neutrophils Percent Auto 66.2 % (42.0-72.0); Platelet Count* 273 K/uL (140-440); RDW Coefficient of Variation % 13.8 % (11.5-15.5); Red Blood Count 3.67 m/uL (4.30-5.90); White Blood Count* 10.76 K/uL (4.50-11.00)
[2023-08-22 06:52] LABS: Chloride* 102 mmol/L (96-114)
[2023-08-22 06:53] LABS: Potassium* 3.3 mmol/L (3.6-5.1); Sodium* 134 mmol/L (135-149)
[2023-08-22 06:55] LABS: Creatinine* 0.7 mg/dL (0.5-1.5); Est. Creatinine Clearance* 49.18; Estimated Glomerular Filt Rate 104 ml/min
[2023-08-22 06:56] LABS: Anion Gap 9 mEq/L (7-15); Blood Urea Nitrogen* 8 mg/dL (7-30); Calcium* 8.8 mg/dL (8.4-10.6); Carbon Dioxide* 23 mmol/L (20-32); Glucose* 85 mg/dL (60-115); Slide Review Reflex No
--- NOTE | 2023-08-22 07:06 | CRLHL7_ITS ---
For Patients: As a result of the Century Cures Act, medical imaging exams and procedure reports are released immediately into your electronic medical record. You may view this report before your referring provider. If you have questions, please contact your health care provider. Indication: Encephalopathy Technique: Multiplanar, multisequence MR images of the brain were obtained before and after the administration of intravenous gadolinium. 10 cc Dotarem intravenous gadolinium Comparison: None available. Findings: On midline sagittal T1 images, there are preserved flow voids and sagittal sinuses. The corpus callosum is preserved in signal and contour. The pituitary gland is unremarkable without evidence of remodeling of the sella turcica. There is no significant cerebellar tonsillar ectopia. On diffusion-weighted sequences, there is no evidence of acute or subacute infarct. On blood sensitive sequences, there are scattered punctate foci within the subcortical white matter of the cerebellum and [id number] cerebral hemispheres commensurate with scattered microhemorrhages which can be seen in the setting of amyloidosis. There is severe global cortical atrophy and sulcal widening greater than expected for age with moderate chronic small-vessel disease changes of the subcortical and periventricular white matter. Old lacunar changes of the basal ganglia are appreciated. Somewhat cribriform appearance of the centrum semiovale and lamas radiata white matter. Otherwise, the brain parenchyma is preserved in signal intensity for age. There is no evidence of abnormal contrast enhancement. The flow voids at the skull base are unremarkable. The orbits and their contents are within normal limits. There is minimal chronic mucosal thickening within the paranasal sinuses. The mastoid air cells are clear. Impression: Extensive global cortical atrophy with sulcal widening and ex vacuo dilatation of the lateral ventricles greater than expected for age. Old lacunar changes of the basal ganglia with chronic small vessel disease changes of the white matter. Otherwise, no acute intracranial abnormality or abnormal contrast enhancement. Dictated by Roby Haas MD @ 08/22/2023 9:51:16 AM (Electronically Signed)
[2023-08-22] MEDS: lisinopriL 20 MG TABLET PO (09:47)
[2023-08-22] MEDS: DOXYCYCLINE HYCLATE 100 MG PO ×2 (09:47→21:15)
[2023-08-22] MEDS: POTASSIUM CHLORIDE 10 MEQ CAPSULE ER 40 MEQ PO (09:47)
[2023-08-22] MEDS: FOLIC ACID 1 MG TABLET PO (09:48)
[2023-08-22] MEDS: MULTIVITAMIN/MINERALS 1 TABLET 1 TAB PO (09:48)
[2023-08-22] MEDS: AMLODIPINE 10 MG TABLET PO (09:49)
[2023-08-22] MEDS: SODIUM CHLORIDE 0.9 % (FLUSH) 10 ML SYRINGE 5 ML IVF ×2 (10:02→21:16)
[2023-08-22] MEDS: PHENobarbitaL 130 MG in 0.9 % SODIUM CHLORIDE 100 ml 100 ML 204 MG IVPB (10:03)
--- NOTE | 2023-08-22 10:26 | P.IMPN_ITS ---
Progress Note: A&P Assessment and plan (1) Alcohol withdrawal: Problem details: continue CIWA protocol; continue thiamine start phenobarbital, SW consult prior to discharge Status: Acute Assessment and Plan: 08/21: CIWA scores improving; continue PT, MRI Brain no cva; possible discharge tomorrow to home; may need SNF? (2) Pneumonia: Problem details: continue ceftriaxone and doxycyline Status: Acute (3) Hypertension: Problem details: start lisinopril and prn hydralazine 08/19: increase lisinopril to 10 mg daily 08/20: lisinopril increased to 20 mg daily; start norvasc Status: Acute (4) Hypokalemia: Problem details: continue electrolyte replacement including mg replacement Status: Acute (5) Hyponatremia: Problem details: continue to monitor asymptomatic and mildly low Status: Acute Subjective Date Seen: 08/22/23 Interval history: CIWA scores around 6 overnight patient able to walk in hallway today with walker improved gait MRI brain no cva; chronic findings below MRI BRAIN Impression: Extensive global cortical atrophy with sulcal widening and ex vacuo dilatation of the lateral ventricles greater than expected for age. Old lacunar changes of the basal ganglia with chronic small vessel disease changes of the white matter. Otherwise, no acute intracranial abnormality or abnormal contrast enhancement. Exam Narrative: Exam Narrative: Gen: no acute distress HEENT: NCAT EOMI mmm CV: RRR normal s1 s2 Lungs: CTAB Abd: Soft,nt, nd Neuro: Alert, oriented, at baseline state MSK: decreased muscle mass Skin; Warm, dry no rash on face Const: Vital Signs, click to edit/add: Vital Signs - 24 hr 08/21/23 11:00 08/21/23 13:00 08/21/23 15:00 Temperature 98 F Pulse Rate 83 Pulse Rate [Pulse Oximeter] 78 81 Respiratory Rate 16 16 Blood Pressure [Le ft Arm] Blood Pressure [Ri ght Arm] 200/110 H Pulse Oximetry 96 96 Oxygen Delivery Me thod Room Air Room Air 08/21/23 15:00 08/21/23 17:00 08/21/23 19:00 Temperature 98 F 98 F Pulse Rate Pulse Rate [Pulse Oximeter] 81 86 86 Respiratory Rate 16 16 16 Blood Pressure [Le ft Arm] 171/96 H Blood Pressure [Ri ght Arm] 191/110 H Pulse Oximetry 99 99 Oxygen Delivery Me thod Room Air Room Air 08/21/23 21:00 08/21/23 22:15 08/21/23 22:15 Temperature 98.2 F 97.6 F Pulse Rate Pulse Rate [Pulse Oximeter] 91 89 89 Respiratory Rate 16 16 16 Blood Pressure [Le ft Arm] 133/91 H Blood Pressure [Ri ght Arm] 177/101 H Pulse Oximetry 95 96 Oxygen Delivery Ny thod Room Air Room Air 08/21/23 22:43 08/22/23 01:00 08/22/23 02:25 Temperature 97.9 F 97.9 F Pulse Rate 88 Pulse Rate [Pulse Oximeter] 90 90 Respiratory Rate 16 16 Blood Pressure [Le ft Arm] 142/95 H 142/95 H Blood Pressure [Ri ght Arm] Pulse Oximetry 96 96 [facility] Room Air 08/22/23 05:00 08/22/23 07:00 08/22/23 07:00 Temperature 97.6 F Pulse Rate 77 Pulse Rate [Pulse Oximeter] 96 85 Respiratory Rate 16 16 Blood Pressure [Le ft Arm] 144/87 H Blood Pressure [Ri ght Arm] Pulse Oximetry 96 Oxygen Delivery Ny thod Room Air 08/22/23 07:00 Temperature 97.6 F Pulse Rate Pulse Rate [Pulse Oximeter] 85 Respiratory Rate 16 Blood Pressure [Le ft Arm] Blood Pressure [Ri ght Arm] 179/98 H Pulse Oximetry 98 [facility] Labs Labs: Laboratory Results - last 24 hr 08/21/23 08/22/23 06:34 06:09 WBC 10.76 RBC 3.67 L Hgb 13.6 Hct 38.8 MCV 106 H MCH 37 H MCHC 35 RDW Coeff of Briana 13.8 Plt Count 273 Neut % (Auto) 66.2 Lymph % (Auto) 19.6 L [place] % (Auto) 10.3 Eos % (Auto) 2.0 Baso % (Auto) 0.7 Neut # (Auto) 7.12 H Lymph # (Auto) 2.10 [place] # (Auto) 1.10 H Eos # (Auto) 0.21 Baso # (Auto) 0.08 Abs Immat Gran (auto) 0.13 Imm/Tot Granulo (auto) 1.2 Sodium 133 L 134 L Potassium 3.7 3.3 L Chloride 105 102 Carbon Dioxide 23 23 Anion Gap 5 L 9 BUN 10 8 Creatinine 0.7 0.7 Estimated Creat Clear 49.29 49.18 Estimated GFR 104 104 Glucose 82 85 Calcium 8.8 8.8 Total Bilirubin 0.8 AST 29 ALT 12 Alkaline Phosphatase 76 Total Protein 6.6 Albumin 3.7
[2023-08-22] MEDS: cefTRIAXone 2 GM in 0.9 % SODIUM CHLORIDE Mini-bag 100 ML IVPB (11:05)
--- NOTE | 2023-08-22 11:27 | PC.SOCIAL ---
Addendum entered by TAVO Orozco 08/22/23 16:42: Discharge planning: Pt was sleeping when this clinical social worker went back to his room to check-in with him. Pt would not awake to this worker's voice. timber mill worker will follow-up with the pt on Saturday. Addendum entered by TAVO Orozco 08/22/23 15:25: Discharge planning: timber mill worker brought the pt literature on [facility] to read. timber mill worker also brought the pt information on inpatient/outpatient treatment programs for substance abuse in [place]. Pt was having his vitals taken by the nurse when this worker was in the room and appeared to be sleepy. This worker will try to check back in with the pt before the end of the day to see if he had time to read the literature. timber mill worker may have to wait until Saturday to send the referral to [facility] based on the pt's decision and if he may need more time to look through the literature. Social work to follow-up as needed. Addendum entered by TAVO Orozco 08/22/23 14:48: Discharge planning: timber mill worker met with pt this afternoon and discussed [facility] with him, pt wanted to read some literature on the facility. timber mill worker will print off some literature on [facility] and bring it to him. timber mill worker will also provide the pt with resources on outpatient treatment programs in [place], as the pt stated he would also like to read more about those facilities. timber mill worker did check in with [facility] and they stated that they would not have a male opening until next week, but would be willing to look at a referral. timber mill worker checked with the business office at [facility] and they stated they do accept the pt's insurance([facility] Medicaid). If the pt agrees to letting this clinical social worker send the referral, this clinical social worker will fax it to [facility] this afternoon. Social work to follow-up as needed. Original Note: Discharge planning: timber mill worker attempted to meet with pt around 11:20am, but he would not wake to this worker's voice. timber mill worker wanted to ask the pt if he would be interested in any inpatient treatment programs, specifically [facility]. timber mill worker will attempt to meet with pt again this afternoon. Social work to follow-up as needed.
[2023-08-22] MEDS: LACTATED RINGERS 500 ML 500 ML IV (12:03)
[2023-08-22] MEDS: LACTULOSE 20 GM/30 ML PO ×2 (14:30→21:15)
[2023-08-22] MEDS: PHENobarbitaL 130 MG in 0.9 % SODIUM CHLORIDE 100 ml 100 ML 240 MG IVPB (21:15)
[2023-08-23] VITALS (10 sets, daily range): BP systolic 139–209; BP diastolic 86–120; PULSE 71–91; RESP 16–18; TEMP 36.2–37.2; O2SAT 95–98
[2023-08-23] MEDS: HYDRALAZINE HCL 20 MG/ML inj 10 MG IVP (04:03)
--- NOTE | 2023-08-23 05:10 | PC.NURSE ---
Patient has been pleasant and cooperative with cares. Patient had 2 episodes of loose stool, both continent and incontinent. Denies pain or N/V. Oriented to self and place, but remains uncertain of date. CIWA scores 7 for both checks. Blood pressure at 0400 was 209/120. PRN Hydralazine administered and recheck at 0500 was 149/96. Heart rate 70-90's and tele showing NSR. Up with A1, walker and gait belt into bathroom. Unsteady at times and needs redirection with ambulation.
[2023-08-23] MEDS: lisinopriL 20 MG TABLET PO (08:39)
[2023-08-23] MEDS: FOLIC ACID 1 MG TABLET PO (08:39)
[2023-08-23] MEDS: LACTULOSE 20 GM/30 ML PO ×2 (08:39→21:06)
[2023-08-23] MEDS: SODIUM CHLORIDE 0.9 % (FLUSH) 10 ML SYRINGE 5 ML IVF ×2 (08:39→21:06)
[2023-08-23] MEDS: DOXYCYCLINE HYCLATE 100 MG PO ×2 (08:39→21:06)
[2023-08-23] MEDS: AMLODIPINE 10 MG TABLET PO (08:39)
[2023-08-23] MEDS: MULTIVITAMIN/MINERALS 1 TABLET 1 TAB PO (08:39)
--- NOTE | 2023-08-23 09:22 | PM.IMPN1 ---
Progress Note: A&P Assessment and plan (1) Alcohol withdrawal: Problem details: continue CIWA protocol; continue thiamine start phenobarbital, SW consult prior to discharge 08/22: needs SNF Status: Acute (2) Hypokalemia: Problem details: continue electrolyte replacement including mg replacement Status: Acute (3) Pneumonia: Problem details: continue ceftriaxone and doxycyline Status: Acute (4) Hyponatremia: Problem details: continue to monitor asymptomatic and mildly low Status: Acute (5) Leukocytosis: Problem details: check UA and CXR, repeat CBC in AM, afebrile 08/19: CXR with viral vs atypical pna; start doxycline,ceftriaxone, check procal and covid pcr 08/20: Covid pcr negative 08/22 resolved Status: Acute (6) Hypertension: Problem details: start lisinopril and prn hydralazine 08/19: increase lisinopril to 10 mg daily 08/20: lisinopril increased to 20 mg daily; start norvasc 08/22: start metoprolol XL Status: Acute Subjective Date Seen: 08/23/23 Interval history: CIWA score 3 this morning 7 overnight unsteady gait when walking Exam Narrative: Exam Narrative: Gen: no acute distress HEENT: NCAT EOMI mmm CV: tachycardic normal s1 s2 Lungs: CTAB Abd: Soft,nt, nd Neuro: Alert, oriented person, place; not time Psych: appropriate affect MSK: age appropriate muscle mass Skin; Warm, dry no rash on face Const: Vital Signs, click to edit/add: Vital Signs - 24 hr 08/22/23 11:00 08/22/23 11:00 08/22/23 15:00 Temperature 97.1 F L 97.1 F L 98.3 F Pulse Rate Pulse Rate [Pulse Oximeter] 100 100 87 Respiratory Rate 16 16 18 Blood Pressure [Le ft Arm] 156/95 H Blood Pressure [Ri ght Arm] 169/115 H 169/115 H Pulse Oximetry 98 98 97 Oxygen Delivery Me thod Room Air Room Air Room Air Oxygen Flow Rate 08/22/23 15:00 08/22/23 15:00 08/22/23 21:00 Temperature 97.3 F L Pulse Rate 95 Pulse Rate [Pulse Oximeter] 87 83 Respiratory Rate 18 18 Blood Pressure [Le ft Arm] 197/111 H Blood Pressure [Ri ght Arm] Pulse Oximetry 97 Oxygen Delivery Me thod Room Air Oxygen Flow Rate 08/22/23 23:35 08/22/23 23:35 08/22/23 23:35 Temperature 97.6 F Pulse Rate 80 Pulse Rate [Pulse Oximeter] 86 86 Respiratory Rate 18 18 Blood Pressure [Le ft Arm] Blood Pressure [Ri ght Arm] 159/109 H Pulse Oximetry 96 Oxygen Delivery Me thod Room Air Oxygen Flow Rate 08/23/23 04:00 08/23/23 05:07 08/23/23 07:09 Temperature 97.6 F Pulse Rate 81 Pulse Rate [Pulse Oximeter] 76 84 Respiratory Rate 18 Blood Pressure [Le ft Arm] Blood Pressure [Ri ght Arm] 209/120 H 149/96 H Pulse Oximetry 98 Oxygen Delivery Me thod Room Air Oxygen Flow Rate 1 08/23/23 07:45 Temperature 97.6 F Pulse Rate Pulse Rate [Pulse Oximeter] 91 Respiratory Rate 16 Blood Pressure [Le ft Arm] Blood Pressure [Ri ght Arm] 139/86 Pulse Oximetry 96 Oxygen Delivery Me thod Room Air Oxygen Flow Rate
[2023-08-23 09:42] LABS: Lab Add On Test New Spec Needed
[2023-08-23] MEDS: cefTRIAXone 2 GM in 0.9 % SODIUM CHLORIDE Mini-bag 100 ML IVPB (09:42)
[2023-08-23] MEDS: POTASSIUM CHLORIDE 10 MEQ CAPSULE ER 40 MEQ PO (10:16)
[2023-08-23] MEDS: METOPROLOL SUCCINATE (XL) 25 MG TAB PO (10:16)
--- NOTE | 2023-08-23 10:32 | NUTR.NU ---
RDN with nutrition education related to underweight BMI and sobriety. Current diet Regular. Meal intake this morning was 100%, all other intakes since admit were 0-25%. RDN visited with patient whom reports eating 2-3 meals daily which includes a meat, carbohydrate, and vegetable usually. He also consumes mountain dew and juice during the day. He reports a usual body weight around 120 lbs and did not think he has lost weight recently. He was surprised when I told him his current weight of 104 lbs. Weight loss of about 15lbs within 90 days is significant weight loss at 12.5%. He does not think anything has changed in his diet within the last few months to cause weight loss. He reported that he did drink about 1/2 pint or so of alcohol daily before admission. He states he wants to stop drinking alcohol and was interested in diet education related to sobriety. RDN also offered scheduled snacks and supplements, however patient declined at this time. General healthy diet education provided. Discussed following a general, healthy diet using the plate method that includes ? plate non-starchy vegetables and fruit, ? plate whole grains/starch, ? plate healthy protein (fish, poultry, legumes, nuts/seeds), and healthy fats. Discussed limiting saturated fat and sodium intake. Handouts provided to support discussion. RDN contact information provided and encouraged patient to call with questions. RDN to follow up as needed.
[2023-08-23 10:43] LABS: Magnesium* 1.5 mg/dL (1.5-2.6)
--- NOTE | 2023-08-23 12:24 | PC.SOCIAL ---
Addendum entered by TAVO Orozco 08/23/23 15:44: Discharge planning: baking factory worker did not hear anything from [facility] today about being able to accept the pt for next week. baking factory worker left several messages with Sydni at [facility]. baking factory worker is assuming they will get back to this worker on Saturday. Social work to follow-up as needed. Original Note: Discharge planning: baking factory worker spoke to the pt this morning about [facility] and he shared that he would be willing to go and said this worker could send them a referral. baking factory worker faxed a referral to Sydni at [facility], fax #[phone]. Sydni is the linux server administrator for [facility]. baking factory worker did talk to Sydni yesterday and she said they would not have a male opening until next week. baking factory worker updated the provider on duty with this information. baking factory worker also spoke to pt's son, Renan, and his friend, Dinorah(Renan's mom) and updated them on the pt's willingness to go to [facility] and that this worker would be sending them a referral. Social work to follow-up as needed.
[2023-08-23 17:36] LABS: Chloride* 106 mmol/L (96-114); Potassium* 3.8 mmol/L (3.6-5.1); Sodium* 138 mmol/L (135-149)
[2023-08-23 17:38] LABS: Creatinine* 0.8 mg/dL (0.5-1.5); Est. Creatinine Clearance* 50.48; Estimated Glomerular Filt Rate 99 ml/min
[2023-08-23 17:39] LABS: Anion Gap 9 mEq/L (7-15); Blood Urea Nitrogen* 8 mg/dL (7-30); Calcium* 9.7 mg/dL (8.4-10.6); Carbon Dioxide* 23 mmol/L (20-32); Glucose* 103 mg/dL (60-115)
[2023-08-24] VITALS (10 sets, daily range): BP systolic 139–182; BP diastolic 86–111; PULSE 64–82; RESP 16–18; TEMP 36.4–36.7; O2SAT 97–100
--- NOTE | 2023-08-24 06:07 | PC.NURSE ---
At beginning of shift, patient stating he wanted to leave and was sick of this shit. Redirected patient and discussed POC. Patient has been pleasant and cooperative remainder of shift. Afebrile. CIWA 6 at both 2300 and 0300. Up with A1, walker and gait belt to bathroom. Unsteady at times. Remains oriented to self and place but not date. Patient had 2 mostly continent loose stools. Denies pain or N/V.
[2023-08-24 07:21] LABS: Basophils Absolute Auto 0.07 K/uL (0.00-0.30); Basophils Percent Auto 0.9 % (0.0-3.0); Eosinophils Percent Auto 2.6 % (0.0-7.0); Hematocrit 38.2 % (37.0-53.0); Immature Granulocytes Pct Auto 1.3 %; Lymphocytes Absolute Auto 2.25 K/uL (0.90-2.90); Lymphocytes Percent Auto 29.5 % (20-44); Mean Corpuscular HGB Conc 34 gm/dL (32-36); Mean Corpuscular Hemoglobin 36 pg (26-34); Mean Corpuscular Volume 106 fL (80-100); Monocytes Percent Auto 12.3 % (0.0-11.0); Neutrophils Absolute Auto 4.07 K/uL (1.7-7.0); Neutrophils Percent Auto 53.4 % (42.0-72.0); RDW Coefficient of Variation % 14.1 % (11.5-15.5); Red Blood Count 3.59 m/uL (4.30-5.90); White Blood Count* 7.63 K/uL (4.50-11.00)
[2023-08-24 07:49] LABS: Chloride* 113 mmol/L (96-114); Potassium* 3.7 mmol/L (3.6-5.1); Sodium* 138 mmol/L (135-149)
[2023-08-24 07:52] LABS: Anion Gap 7 mEq/L (7-15); Blood Urea Nitrogen* 11 mg/dL (7-30); Carbon Dioxide* 18 mmol/L (20-32); Creatinine* 0.8 mg/dL (0.5-1.5); Est. Creatinine Clearance* 49.09; Estimated Glomerular Filt Rate 99 ml/min
[2023-08-24 07:53] LABS: Calcium* 9.3 mg/dL (8.4-10.6); Glucose* 88 mg/dL (60-115)
[2023-08-24 08:00] LABS: Platelet Count* 225 K/uL (140-440); Slide Review Reflex No
[2023-08-24] MEDS: METOPROLOL SUCCINATE (XL) 25 MG TAB PO (09:16)
[2023-08-24] MEDS: DOXYCYCLINE HYCLATE 100 MG PO ×2 (09:16→21:30)
[2023-08-24] MEDS: LACTULOSE 20 GM/30 ML PO ×2 (09:16→21:30)
[2023-08-24] MEDS: lisinopriL 20 MG TABLET PO (09:16)
[2023-08-24] MEDS: FOLIC ACID 1 MG TABLET PO (09:16)
[2023-08-24] MEDS: MULTIVITAMIN/MINERALS 1 TABLET 1 TAB PO (09:16)
[2023-08-24] MEDS: AMLODIPINE 10 MG TABLET PO (09:16)
[2023-08-24] MEDS: SODIUM CHLORIDE 0.9 % (FLUSH) 10 ML SYRINGE 5 ML IVF ×2 (09:17→21:31)
[2023-08-24] MEDS: cefTRIAXone 2 GM in 0.9 % SODIUM CHLORIDE Mini-bag 100 ML IVPB (09:17)
--- NOTE | 2023-08-24 12:06 | P.IMPN_ITS ---
Progress Note: A&P Assessment and plan (1) Alcohol withdrawal: Problem details: continue CIWA protocol; continue thiamine start phenobarbital, SW consult prior to discharge 08/22: needs SNF Status: Acute (2) Pneumonia: Problem details: continue ceftriaxone and doxycyline last day ceftriaxone 08/23 Status: Acute (3) Hypokalemia: Problem details: continue electrolyte replacement including mg replacement as needed Status: Acute (4) Hyponatremia: Problem details: continue to monitor asymptomatic and mildly low Status: Acute (5) Hypertension: Problem details: start lisinopril and prn hydralazine 08/19: increase lisinopril to 10 mg daily 08/20: lisinopril increased to 20 mg daily; start norvasc 08/22: start metoprolol XL 08/23: increase lisinopril to 30 mg daily Status: Acute Plan awaiting SNF placement likely early next week Subjective Date Seen: 08/24/23 Interval history: no acute events overnight tachycardia has improved medically stable for discharge phenobarbital stopped last day of ceftriaxone today Exam Narrative: Exam Narrative: Gen: no acute distress HEENT: NCAT EOMI mmm CV: RRR normal s1 s2 Lungs: CTAB Abd: Soft,nt, nd Neuro: Alert, oriented, CN grossly intact; nonfocal screening?exam Psych: appropriate affect MSK: age appropriate muscle mass Skin; Warm, dry no rash on face Const: Vital Signs, click to edit/add: Vital Signs - 24 hr 08/23/23 15:18 08/23/23 15:43 08/23/23 20:00 Temperature 97.5 F L 98.6 F Pulse Rate 81 Pulse Rate [Pulse Oximeter] 73 76 Respiratory Rate 16 16 Blood Pressure [Le ft Arm] 160/98 H 176/102 H Blood Pressure [Ri ght Arm] Pulse Oximetry 98 98 Oxygen Delivery Me thod Room Air Room Air Oxygen Flow Rate 08/23/23 23:00 08/23/23 23:15 08/23/23 23:15 Temperature 97.1 F L Pulse Rate 71 Pulse Rate [Pulse Oximeter] 80 80 Respiratory Rate 16 18 Blood Pressure [Le ft Arm] 174/100 H Blood Pressure [Ri ght Arm] Pulse Oximetry 97 Oxygen Delivery Me thod Room Air Oxygen Flow Rate 08/23/23 23:15 08/24/23 03:00 08/24/23 03:00 Temperature 97.1 F L 97.5 F L 97.5 F L Pulse Rate Pulse Rate [Pulse Oximeter] 80 78 78 Respiratory Rate 18 18 18 Blood Pressure [Le ft Arm] 174/100 H 174/111 H 174/111 H Blood Pressure [Ri ght Arm] Pulse Oximetry 97 98 98 Oxygen Delivery Me thod Room Air Room Air Room Air Oxygen Flow Rate 1 08/24/23 07:19 08/24/23 08:11 08/24/23 08:11 Temperature 97.5 F L 97.5 F L Pulse Rate 66 Pulse Rate [Pulse Oximeter] 82 78 Respiratory Rate 16 18 Blood Pressure [Le ft Arm] 166/109 H 174/111 H Blood Pressure [Ri ght Arm] 139/86 Pulse Oximetry 98 98 Oxygen Delivery Me thod Room Air Room Air Oxygen Flow Rate 1 08/24/23 11:59 Temperature 97.6 F Pulse Rate Pulse Rate [Pulse Oximeter] 75 Respiratory Rate 16 Blood Pressure [Le ft Arm] 164/108 H Blood Pressure [Ri ght Arm] Pulse Oximetry 100 Oxygen Delivery Me thod Room Air Oxygen Flow Rate Labs Labs: Laboratory Results - last 24 hr 08/23/23 08/24/23 10:20 06:51 WBC 7.63 RBC 3.59 L Hgb 13.0 L Hct 38.2 MCV 106 H MCH 36 H MCHC 34 RDW Coeff of Briana 14.1 Plt Count 225 Neut % (Auto) 53.4 Lymph % (Auto) 29.5 Stone % (Auto) 12.3 H Eos % (Auto) 2.6 Baso % (Auto) 0.9 Neut # (Auto) 4.07 Lymph # (Auto) 2.25 Stone # (Auto) 0.90 Eos # (Auto) 0.20 Baso # (Auto) 0.07 Abs Immat Gran (auto) 0.10 Imm/Tot Granulo (auto) 1.3 Sodium 138 138 Potassium 3.8 3.7 Chloride 106 113 Carbon Dioxide 23 18 L Anion Gap 9 7 BUN 8 11 Creatinine 0.8 0.8 Estimated Creat Clear 50.48 49.09 Estimated GFR 99 99 Glucose 103 88 Calcium 9.7 9.3
[2023-08-24] MEDS: lisinopriL 10 MG TABLET PO (13:38)
[2023-08-24] MEDS: HEPARIN 5,000 UNIT/0.5 ML INJ 5000 UNIT SUBCUT (21:30)
[2023-08-25] VITALS (8 sets, daily range): BP systolic 145–163; BP diastolic 90–108; PULSE 60–86; RESP 16–18; TEMP 36.2–37.1; O2SAT 98–100
--- NOTE | 2023-08-25 07:27 | P.IMPN_ITS ---
Progress Note: A&P Assessment and plan (1) Alcohol withdrawal: Problem details: continue CIWA protocol; continue thiamine start phenobarbital, SW consult prior to discharge 08/22: needs SNF 08/24: Symptoms essentially have resolved Status: Acute (2) Pneumonia: Problem details: continue ceftriaxone and doxycyline last day ceftriaxone 08/23 Status: Acute (3) Hypokalemia: Problem details: continue electrolyte replacement including mg replacement as needed Status: Acute (4) Hyponatremia: Problem details: continue to monitor asymptomatic and mildly low Status: Acute (5) Hypertension: Problem details: start lisinopril and prn hydralazine 08/19: increase lisinopril to 10 mg daily 08/20: lisinopril increased to 20 mg daily; start norvasc 08/22: start metoprolol XL 08/23: increase lisinopril to 30 mg daily Status: Acute Plan awaiting SNF Subjective Date Seen: 08/25/23 Interval history: no acute events overnight patient medically stable for discharge awaiting placement hopefully more information Saturday re SNF Exam Narrative: Exam Narrative: Gen: no acute distress HEENT: NCAT EOMI mmm CV: RRR normal s1 s2 Lungs: CTAB Abd: Soft,nt, nd Neuro: Alert, at baseline state; nonfocal screening?exam Psych:flat affect MSK: age appropriate muscle mass Skin; Warm, dry no rash on face Const: Vital Signs, click to edit/add: Vital Signs - 24 hr 08/24/23 08:11 08/24/23 08:11 08/24/23 11:59 Temperature 97.5 F L 97.5 F L 97.6 F Pulse Rate Pulse Rate [Pulse Oximeter] 82 78 75 Respiratory Rate 16 18 16 Blood Pressure [Le ft Arm] 166/109 H 174/111 H 164/108 H Blood Pressure [Ri ght Arm] 139/86 Pulse Oximetry 98 98 100 Oxygen Delivery Me thod Room Air Room Air Room Air Oxygen Flow Rate 1 08/24/23 15:49 08/24/23 15:54 08/24/23 19:57 Temperature 97.5 F L 98.0 F Pulse Rate 73 Pulse Rate [Pulse Oximeter] 69 75 Respiratory Rate 16 16 Blood Pressure [Le ft Arm] 160/92 H 173/110 H Blood Pressure [Ri ght Arm] 182/103 H Pulse Oximetry 98 100 Oxygen Delivery Me thod Room Air Room Air Oxygen Flow Rate 08/24/23 21:28 08/24/23 23:00 08/24/23 23:00 Temperature Pulse Rate 66 Pulse Rate [Pulse Oximeter] Respiratory Rate 16 Blood Pressure [Le ft Arm] 161/101 H Blood Pressure [Ri ght Arm] Pulse Oximetry Oxygen Delivery Me thod Oxygen Flow Rate 08/24/23 23:13 08/25/23 04:22 Temperature 98.1 F 97.6 F Pulse Rate Pulse Rate [Pulse Oximeter] 64 72 Respiratory Rate 16 18 Blood Pressure [Le ft Arm] 175/105 H 158/102 H Blood Pressure [Ri ght Arm] Pulse Oximetry 97 99 Oxygen Delivery Me thod Room Air Room Air Oxygen Flow Rate Labs Labs: Laboratory Results - last 24 hr 08/24/23 06:51 WBC 7.63 RBC 3.59 L Hgb 13.0 L Hct 38.2 MCV 106 H MCH 36 H MCHC 34 RDW Coeff of Briana 14.1 Plt Count 225 Neut % (Auto) 53.4 Lymph % (Auto) 29.5 [place] % (Auto) 12.3 H Eos % (Auto) 2.6 Baso % (Auto) 0.9 Neut # (Auto) 4.07 Lymph # (Auto) 2.25 [place] # (Auto) 0.90 Eos # (Auto) 0.20 Baso # (Auto) 0.07 Abs Immat Gran (auto) 0.10 Imm/Tot Granulo (auto) 1.3 Sodium 138 Potassium 3.7 Chloride 113 Carbon Dioxide 18 L Anion Gap 7 BUN 11 Creatinine 0.8 Estimated Creat Clear 49.09 Estimated GFR 99 Glucose 88 Calcium 9.3
[2023-08-25] MEDS: MULTIVITAMIN/MINERALS 1 TABLET 1 TAB PO (08:58)
[2023-08-25] MEDS: lisinopriL 20 MG TABLET 30 MG PO (08:59)
[2023-08-25] MEDS: LACTULOSE 20 GM/30 ML PO ×2 (08:59→20:40)
[2023-08-25] MEDS: FOLIC ACID 1 MG TABLET PO (08:59)
[2023-08-25] MEDS: AMLODIPINE 10 MG TABLET PO (08:59)
[2023-08-25] MEDS: DOXYCYCLINE HYCLATE 100 MG PO ×2 (08:59→20:40)
[2023-08-25] MEDS: METOPROLOL SUCCINATE (XL) 25 MG TAB PO (08:59)
[2023-08-25] MEDS: HEPARIN 5,000 UNIT/0.5 ML INJ 5000 UNIT SUBCUT ×2 (09:00→20:40)
[2023-08-25] MEDS: SODIUM CHLORIDE 0.9 % (FLUSH) 10 ML SYRINGE 5 ML IVF ×2 (09:00→20:41)
[2023-08-26 00:17] VITALS: BP 176/95; PULSE 61; RESP 16; TEMP 36.7; O2SAT 98
[2023-08-26 04:00] VITALS: BP 183/102; PULSE 56; RESP 18; TEMP 36.4; O2SAT 100
[2023-08-26] MEDS: HYDRALAZINE HCL 20 MG/ML inj 10 MG IVP (04:19)
[2023-08-26] MEDS: SODIUM CHLORIDE 0.9 % (FLUSH) 10 ML SYRINGE 5 ML IVF ×2 (04:20→09:40)
--- NOTE | 2023-08-26 06:28 | PC.NURSE ---
Pt is alert and oriented to self and place but difficulties with time. Afebrile. Pt scored 1 on CIWAs throughout night. Pt denies pain, chest pain, and N/V. Pt is up SBA, voiding, and tolerating a regular diet.??
[2023-08-26 06:33] LABS: Hematocrit 38.1 % (37.0-53.0); Hemoglobin* 13.1 gm/dL (13.5-17.5); Mean Corpuscular HGB Conc 34 gm/dL (32-36); Mean Corpuscular Hemoglobin 36 pg (26-34); Mean Corpuscular Volume 106 fL (80-100); Platelet Count* 370 K/uL (140-440); White Blood Count* 8.71 K/uL (4.50-11.00)
[2023-08-26 06:37] LABS: Slide Review Reflex No
[2023-08-26 06:52] LABS: Chloride* 113 mmol/L (96-114); Potassium* 3.8 mmol/L (3.6-5.1); Sodium* 138 mmol/L (135-149)
[2023-08-26 06:55] LABS: Anion Gap 7 mEq/L (7-15); Blood Urea Nitrogen* 18 mg/dL (7-30); Carbon Dioxide* 18 mmol/L (20-32); Creatinine* 0.8 mg/dL (0.5-1.5); Est. Creatinine Clearance* 47.54; Estimated Glomerular Filt Rate 99 ml/min; Glucose* 89 mg/dL (60-115)
[2023-08-26 06:56] LABS: Calcium* 9.4 mg/dL (8.4-10.6)
[2023-08-26 07:57] VITALS: BP 160/88; PULSE 76; RESP 14; TEMP 37.4; O2SAT 97
[2023-08-26] MEDS: lisinopriL 20 MG TABLET 30 MG PO (09:38)
[2023-08-26] MEDS: FOLIC ACID 1 MG TABLET PO (09:38)
[2023-08-26] MEDS: METOPROLOL SUCCINATE (XL) 25 MG TAB PO (09:38)
[2023-08-26] MEDS: HYDRALAZINE 10 MG TABLET PO ×2 (09:39→13:47)
[2023-08-26] MEDS: AMLODIPINE 10 MG TABLET PO (09:39)
[2023-08-26] MEDS: DOXYCYCLINE HYCLATE 100 MG PO (09:39)
[2023-08-26] MEDS: HEPARIN 5,000 UNIT/0.5 ML INJ 5000 UNIT SUBCUT (09:39)
[2023-08-26] MEDS: MULTIVITAMIN/MINERALS 1 TABLET 1 TAB PO (09:39)
[2023-08-26] MEDS: LACTULOSE 20 GM/30 ML PO (09:40)
--- NOTE | 2023-08-26 09:57 | PC.SOCIAL ---
Addendum entered by TAVO Orozco 08/26/23 15:33: Discharge planning: [employer] worker was notified by the provider on duty that pt no longer qualifies for SNF therapies at [facility] because he is moving and getting around so well. Provider wanted this worker to talk to the pt about just going to an inpatient treatment program for his alcoholism. skidway worker went to talk to the pt and he stated that he would not go to an inpatient treatment program for alcohol use. skidway worker stated to pt that he said he was willing to go to [facility], which is an inpatient treatment program and penitentiary facility. Pt then stated to this worker that he never agreed to go to [facility] and that this worker was full of shit. Pt stated that he would possibly go to an outpatient program in [place]. skidway worker gave the pt information on outpatient treatment program resources in [place] again and notified the provider on duty of his response about going to an inpatient facility for treatment programming. Pt will discharge this afternoon and has a ride home. Social work to follow-up as needed. Original Note: Discharge planning: skidway worker left a message for Sydni- supervisor capacitor processing at [facility] #[phone], asking for an update on the referral that was faxed on Saturday for the pt. skidway worker asked for a call back as soon as possible. Social work to follow-up as needed.
--- NOTE | 2023-08-26 10:55 | P.IMPN_ITS ---
Progress Note: A&P Assessment and plan (1) Pneumonia: Problem details: by 08/25 will have completed rocephin/doxy regimen on room air ready for discharge Status: Acute (2) Hypertension: Problem details: start lisinopril and prn hydralazine 08/19: increase lisinopril to 10 mg daily 08/20: lisinopril increased to 20 mg daily; start norvasc 08/22: start metoprolol XL 08/23: increase lisinopril to 30 mg daily 08/25: start hydralazine 10mg TID Status: Acute (3) Chronic alcoholism: Problem details: long standing chemical dependency. 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 Limited insight into scope of problem but willing and asking for rehab/help. Status: Acute (5) Hypokalemia: Problem details: resolved Status: Acute (6) Hyponatremia: Problem details: resolved Status: Acute (7) Alcohol withdrawal: Problem details: continue CIWA protocol; continue thiamine start phenobarbital, SW consult prior to discharge 08/22: needs SNF 08/24: Symptoms essentially have resolved Status: Acute (8) Leukocytosis: Problem details: check UA and CXR, repeat CBC in AM, afebrile 08/19: CXR with viral vs atypical pna; start doxycline,ceftriaxone, check procal and covid pcr 08/20: Covid pcr negative 08/22 resolved Status: Acute Subjective Date Seen: 08/26/23 Interval history: Daily Progress Note - Hospital Medicine Day #: 8 CC: pneumonia, chronic alcoholism; withdrawal, poor self care, electrolyte abnormalities OVERNIGHT UPDATES FROM STAFF & MED, LAB, IMAGING UPDATES Mildly hypertensive. Pulse 76. Afebrile. O2 sat 97% room air. CBC has essentially normalized. White blood cell count now is now normal. His hemoglobin is stable at 13.1. His platelet count is normal. Chemistries are all reassuring. Mild drop in his bicarb over the last 3 days. LFTs were last checked on the 12 in those are normal. Reviewed MRI of brain from 08/21 Extensive global cortical atrophy with sulcal widening and ex vacuo dilatation of the lateral ventricles greater than expected for age. Old lacunar changes of the basal ganglia with chronic small vessel disease changes of the white matter. No micro cultures this admission. Medication review: Patient is on his last day of doxycycline, has completed Rocephin. Folic acid, amlodipine, lactulose, metoprolol, lisinopril and hydralazine on his med list. Objective: Resting comfortably; disshelved Vitals: see above Lungs: Clear. Cardiac: S1S2. Disposition/Potential discharge - Awaiting [facility] acceptance (SNF + chemical dep tx) Today I spent 50minutes seeing the patient, reviewing [facility] and EPIC notes/diagnostics, discussing the care plan with our care time that includes social work, PT/OT, pharmacy, RT, longterm and documenting my impressions and plan in the medical record. Exam Const: Vital Signs, click to edit/add: Vital Signs - 24 hr 08/25/23 11:31 08/25/23 15:21 08/25/23 15:35 Temperature 98.7 F 97.2 F L Pulse Rate 86 Pulse Rate [Pulse Oximeter] 67 60 Respiratory Rate 16 16 Blood Pressure [Le ft Arm] 145/91 H 163/90 H Blood Pressure [Ri ght Arm] Pulse Oximetry 98 100 Oxygen Delivery Me thod Room Air Room Air 08/25/23 19:30 08/25/23 19:34 08/26/23 00:17 Temperature 97.6 F 97.6 F 98.0 F Pulse Rate Pulse Rate [Pulse Oximeter] 64 64 61 Respiratory Rate 16 16 16 Blood Pressure [Le ft Arm] 157/96 H 157/96 H Blood Pressure [Ri ght Arm] 176/95 H Pulse Oximetry 99 99 98 Oxygen Delivery Me thod Room Air Room Air Room Air 08/26/23 04:00 08/26/23 07:57 08/26/23 07:57 Temperature 97.6 F 99.3 F Pulse Rate Pulse Rate [Pulse Oximeter] 56 L 76 76 Respiratory Rate 18 14 14 Blood Pressure [Le ft Arm] 183/102 H 160/88 H Blood Pressure [Ri ght Arm] Pulse Oximetry 100 97 Oxygen Delivery Me thod Room Air Room Air Labs Labs: Laboratory Results - last 24 hr 08/26/23 Unknown WBC 8.71 RBC 3.60 L Hgb 13.1 L Hct 38.1 MCV 106 H MCH 36 H MCHC 34 Plt Count 370 Sodium 138 Potassium 3.8 Chloride 113 Carbon Dioxide 18 L Anion Gap 7 BUN 18 Creatinine 0.8 Estimated Creat Clear 47.54 Estimated GFR 99 Glucose 89 Calcium 9.4
[2023-08-26 11:02] VITALS: BP 148/87; PULSE 68; RESP 16; TEMP 37.4; O2SAT 98
--- NOTE | 2023-08-26 14:15 | PM.DS1 ---
DS: Providers Provider Date Seen: 08/26/23 Date of admission: 08/19/23 13:00 Primary care physician: Not a Local Provider Admitting Clinician: Rhett Wiley DO Consults: 08/19/23 05:12 Consult to Occupational Therapy [CONS] Routine Comment: Reason(s) for OT Consult:: Evaluate and Treat Any Restrictions?:: Unknown Consult to Physical Therapy [CONS] Routine Comment: Reason(s) for PT Consult:: Evaluate and Treat Any Restrictions?:: Unknown 08/19/23 07:52 Consult to Physical Therapy [CONS] Routine Comment: Reason(s) for PT Consult:: Evaluate and Treat Any Restrictions?:: No Restrictions Attending Physician on discharge[facility]: 08/26/23 DS: Diagnosis Discharge Diagnosis (1) Chronic alcoholism: Status: Acute Problem details: long standing chemical dependency. We encourage the patient to seek inpatient chemical dependency treatment. He declined. I spoke with his son on the day of discharge and he will continue to encourage his father to make better choices. (2) Chronic alcoholic brain syndrome: Status: Acute Problem details: on MOCA which did improve to a on SLUMs. Limited insight into scope of problem. (3) Pneumonia: Status: Acute Problem details: by 08/25 will have completed rocephin/doxy regimen on room air ready for discharge (4) Hypokalemia: Status: Acute Problem details: resolved (5) Hyponatremia: Status: Acute Problem details: resolved (6) Leukocytosis: Status: Acute Problem details: check UA and CXR, repeat CBC in AM, afebrile 08/19: CXR with viral vs atypical pna; start doxycline,ceftriaxone, check procal and covid pcr 08/20: Covid pcr negative 08/22 resolved (7) Hypertension: Status: Acute Problem details: start lisinopril and prn hydralazine 08/19: increase lisinopril to 10 mg daily 08/20: lisinopril increased to 20 mg daily; start norvasc 08/22: start metoprolol XL 08/23: increase lisinopril to 30 mg daily 08/25: Discharging on amlodipine 10, metoprolol 50, lisinopril 40 (8) Alcohol withdrawal: Status: Acute Problem details: Patient received thiamin and phenobarbital and benzodiazepines 08/24: Symptoms essentially have resolved DS: Summary Hospital Course Hospital Course: FINAL DIAGNOSIS/FOLLOW UP ISSUES: 1. Alcohol dependency. Chronic alcoholism. Chronic alcohol brain dysfunction. Intense with partial hospitalization or inpatient rehabilitation was recommended. Patient declined. 2. Alcohol withdrawal, supported and symptoms resolve 3. Hypertension, 3 drug regimen prescribed BRIEF HOSPITAL COURSE: Patient was admitted for 8 days. Synopsis of acute inpatient issues are outlined above. Chronic medical conditions with notable findings outlined above. Is patient was in active withdrawal from his chronic alcohol intake. We managed this with phenobarbital, benzodiazepines. Initially he was quite delirious. He scored 14/30 on his MOCA, this did improve by the end of the hospitalization to a 22/30. He was quite hypertensive throughout his stay. He is chronically hypertensive but had quit his medications. He lives with his son, we initially were thinking that he would place at [facility] (SNF + chemical dependency) but over the course of his stay he continued to improve. We recommended inpatient chemical dependency stay, which she declined. I discussed with his son are concerns. He will continue to echo those concerns. DISCHARGE MEDICATIONS: See Reconciled list - SIGNIFICANT CHANGES: Three med hypertensive regimen-atenolol, metoprolol, lisinopril Folic acid and lactulose Specific instructions to the patient and follow-up are outlined below. REVIEW OF SYSTEMS No new chest pain or dyspnea Pain controlled No voiding difficulties Tolerating diet challenge PHYSICAL EXAM: CONSTITUTIONAL: Disheveled. But alert and much physically stronger than when he admitted. No more delirium. VITAL SIGNS: see record. HEENT: Normocephalic, atraumatic. PERRL, EOMI, conjunctivae pink, no scleral icterus. Ears and nose externally normal. Pharynx normal. NECK: No JVD. No carotid bruit, no thyromegaly, no adenopathy. CHEST: Clear to auscultation bilaterally. HEART: S1 and S2 normal. Edema ABDOMEN: Soft, nontender. Normal bowel sounds. MUSCULOSKELETAL: No gross joint deformity or swelling. NEURO: Cranial nerves intact. Grossly intact. No asymmetric findings. SKIN: No rashes, petechiae, concerning changes PSYCHIATRIC: Mood euthymic. DISPOSITION: Home with son Time spent on discharge 37 minutes. Status at Discharge Functional status at discharge: independent ambulation Overall status at discharge: patient is progressing back to baseline Time Spent with Patient Time attestation: Total time spent providing and/or coordinating discharge services: Time spent: Greater than 30 minutes Exam Const: Vital Signs, click to edit/add: Vital Signs - 24 hr 08/25/23 15:21 08/25/23 15:35 08/25/23 19:30 Temperature 97.2 F L 97.6 F Pulse Rate 86 Pulse Rate [Pulse Oximeter] 60 64 Respiratory Rate 16 16 Blood Pressure [Le ft Arm] 163/90 H 157/96 H Blood Pressure [Ri ght Arm] Pulse Oximetry 100 99 Oxygen Delivery Me thod Room Air Room Air 08/25/23 19:34 08/26/23 00:17 08/26/23 04:00 Temperature 97.6 F 98.0 F 97.6 F Pulse Rate Pulse Rate [Pulse Oximeter] 64 61 56 L Respiratory Rate 16 16 18 Blood Pressure [Le ft Arm] 157/96 H 183/102 H Blood Pressure [Ri ght Arm] 176/95 H Pulse Oximetry 99 98 100 Oxygen Delivery Me thod Room Air Room Air Room Air 08/26/23 07:57 08/26/23 07:57 08/26/23 11:02 Temperature 99.3 F 99.4 F Pulse Rate Pulse Rate [Pulse Oximeter] 76 76 68 Respiratory Rate 14 14 16 Blood Pressure [Le ft Arm] 160/88 H 148/87 H Blood Pressure [Ri ght Arm] Pulse Oximetry 97 98 Oxygen Delivery Me thod Room Air Room Air DS: Data Data Completed and Pending Labs on day of discharge: Labs from last 24 hours 08/26/23 Unknown WBC 8.71 RBC 3.60 L Hgb 13.1 L Hct 38.1 MCV 106 H MCH 36 H MCHC 34 Plt Count 370 Sodium 138 Potassium 3.8 Chloride 113 Carbon Dioxide 18 L Anion Gap 7 BUN 18 Creatinine 0.8 Estimated Creat Clear 47.54 Estimated GFR 99 Glucose 89 Calcium 9.4 Discharge Plan Discharge Disposition: Home w/ Parent or Adult Date of Admission: 08/19/23 13:00 Attending Provider on Discharge: Lillian Salazar Primary Care Provider: Provider,Not a Local Anticipated Discharge Date/Time: 08/26/23 13:26 Discharge Medications: New amlodipine 10 mg Tablet 10 mg PO DAILY Qty: 30 0RF folic acid 1 mg Tablet 1 mg PO DAILY Qty: 30 0RF lactulose 20 gram/30 mL Solution 20 g PO BID Qty: 240 0RF metoprolol succinate 50 mg tablet extended release 24 hr 50 mg PO DAILY Qty: 30 0RF lisinopril 40 mg tablet 40 mg PO DAILY Qty: 30 0RF Discharge Orders: Discharge Order (Routine); Ordered 08/26/23 Ordered By: Lillian Salazar Additional Instructions: -We highly recommend chemical dependency treatment. -Take the three blood pressure medications daily. Measure your blood pressure 2-4x a week. Activity Level: Activity as Tolerated Discharge Diet: Regular Follow Up Appointments: Provider,Not a Local [Primary Care Provider] - Dominick Malone PA-C [Physician Architectural Drafting Instructor] - 09/03/23 9:30 am ([facility] for hospital follow-up appointment. ) Forms: [facility] Inst[facility]
--- NOTE | 2023-08-26 15:10 | PC.NURSE ---
End of Shift: Patient pleasant and cooperative, alert and oriented. Patient hypertensive but vitally stable, lungs clear, BS WNL, IV removed, catheter intact. Patient denies pain and independent in room. Patient urinating and had 1 BM, not with big appetite but tolerating regular diet. Patient signed discharge form and belongings sheet, with no further questions regarding discharge. Patient left the floor ambulating to home at 1504. Patient reported he has an appointment set up with an outpatient rehab facility.
== END 2023-08-26 15:04 | disposition home or self-care (01) | DRG 896 ==
LOC: ED 22:07 → MEDSURG 08-19 00:52
PROVIDERS: Hospitalist; Admitting Provider Internal Medicine; Emergency Provider Emergency Medicine; Visit Provider Internal Medicine
DX: F10.239 Alcohol dependence with withdrawal, unspecified (principal); J18.9 Pneumonia, unspecified organism; E87.1 Hypo-osmolality and hyponatremia; Z68.1 Body mass index [BMI] 19.9 or less, adult; F10.27 Alcohol dependence with alcohol-induced persisting dementia; F10.229 Alcohol dependence with intoxication, unspecified; E87.6 Hypokalemia; Y90.6 Blood alcohol level of 120-199 mg/100 ml; R00.0 Tachycardia, unspecified; I10 Essential (primary) hypertension; F10.231 Alcohol dependence with withdrawal delirium
CPT/HCPCS: 36415; 70553; 71045; 80048; 80053; 80076; 80143; 81003; 82077; 83690; 83735; 84100; 84145; 84443; 84484; 85025; 85027; 87631; 93005; 94761; 97110; 97112; 97116; 97162; 97165; 97530; 97535; 99284; 99285; G0378; A9153; A9270; A9575; J0360; J0696; J1644; J2060; J2560; J3475; J7030; J7120

== ENCOUNTER 2025-02-11 23:28 | Outpatient (CLI) | payer MEDICARE, SELFPAY | END 2025-02-11 23:29 | disposition home or self-care (01) | LOC: AMB 02-15 20:21 | PROVIDERS: Visit Provider Student in an Organized Health Care Education/Training Program | DX: R41.82 Altered mental status, unspecified (principal) | CPT/HCPCS: A0425; A0427 ==

== ENCOUNTER 2025-02-11 23:59 | Inpatient (IN) | payer MEDICARE, SELFPAY ==
[2025-02-12] VITALS (65 sets, daily range): BP systolic 115–196; BP diastolic 69–133; PULSE 50–123; RESP 8–31; TEMP 36.1–38.7; O2SAT 74–99; BMI 16.1; BMI 16.6
--- OUTSIDE RECORDS SUMMARY | 2025-02-12 00:01 | XMS_ITS | Clinical Summary ---
Author Organization [facility] Address [address] [place] [id number] Care Team Providers Care Screening Specialist Name Role Phone Luz Hull MD Primary Care Provider [phone] Allergies No known active allergies Medications amLODIPine (NORVASC) 10 mg tabletIndications:E ssential hypertension Take 1 Tablet (10 mg) by mouth once daily. 100 Tablet 3 4 Active lisinopriL (PRINIVIL; ZESTRIL) 40 mg tabletIndications:E ssential hypertension Take 1 Tablet (40 mg) by mouth once daily. 100 Tablet 3 4 Active metoprolol succinate (TOPROL XL) 50 mg sustained-release tabletIndications:E ssential hypertension Take 1 Tablet (50 mg) by mouth once daily. 100 Tablet 3 4 Active chlorthalidone (HYGROTON) 25 mg tabletIndications:E ssential hypertension Take 0.5 Tablets (12.5 mg) by mouth once daily in the morning. 45 Tablet 3 4 Active atorvastatin (LIPITOR) 20 mg tabletIndications:H yperlipidemia, unspecified hyperlipidemia type Take 1 Tablet (20 mg) by mouth at bedtime. 100 Tablet 3 4 Active folic acid 1 mg tabletIndications:A nemia due to folic acid deficiency, unspecified deficiency type,Alcohol abuse Take 1 Tablet (1 mg) by mouth once daily. 100 Tablet 3 4 Active thiamine (VITAMIN B1) 100 mg tabletIndications:A lcohol abuse Take 1 Tablet (100 mg) by mouth once daily. 100 Tablet 3 4 Active miscellaneous medical supply (Blood Pressure Cuff) miscIndications:Ess ential hypertension As directed. 1 Each 4 Active Active Problems Problem Noted Date Diagnosed Date Protein-calorie malnutrition, unspecified severi ty 09/06/2021 Hyperlipidemia LDL goal < 100 10/22/2014 Tobacco use disorder 07/19/2011 Unspecified essential hypertension 06/21/2009 Resolved Problems Problem Noted Date Diagnosed Date Resolved Date Unspecified essential hypertension 07/08/2006 06/21/2009 Immunizations Immunization Administration Dates Next Due Td (Age >=7 Years) 03/11/2002 Tdap 11/14/2011 Family History Medical History Relation Name Comments Cancer Brother at 47. pt unsure of the cancer type? Cancer-prostate Neg. 1 Heart Disease Neg. 2 Diabetes Neg. 3 Stroke Neg. 4 Relation Name Status Comments Brother Neg. 1 Neg. 2 Neg. 3 Neg. 4 Social History Tobacco Use Types Packs/Day Years Used Date Smoking Tobacco: Every Day Cigarettes Smokeless Tobacco: Never Tobacco Cessation:Ready to Q uit: No; Counseling Given: Yes Alcohol Use Standard Drinks/Week Comments Yes 0 (1 standard drink = 0.6 oz pur e alcohol) PHQ-2 Answer Date Recorded PHQ-2 TOTAL SCORE 0 10/24/2023 Social Connections Answer Date Recorded Frequency of Communication with Friends and Fami ly Not on file 09/26/2023 Financial Resource Strain Answer Date R ecorded Difficulty of Paying Living Expenses Not on file 03/01/2021 Difficulty of Paying Living Expenses Not on file 03/01/2021 Sex and Gender Information Value Date Recorded Sex Assigned at Not on file Legal Sex Male 7:14 AM PMO CONSULTANT Gender Identity Not on file Sexual Orientation Not on file 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 Not on file Not on file Not on file Obstetrics History Last Filed Vital Signs Vital Sign Reading Time Taken Comments Blood Pressure 201/130 11/25/2023 7:18 AM CDT Pulse 88 11/21/2023 12:43 PM CDT Temperature 36.7 C (98.1 F) 10/24/2023 1:13 PM CDT Respiratory Rate 20 08/17/2019 3:48 PM CDT Oxygen Saturation 99% 11/21/2023 12:43 PM CDT Inhaled Oxygen Concentration - - Weight 43.5 kg (96 lb) 11/21/2023 12:43 PM CDT Height 157.5 cm (5' 2) 09/26/2023 3:45 PM CDT Body Mass Index 17.56 09/26/2023 3:45 PM CDT Plan of Treatment Health Maintenance Due Date Last Done Comments HIV for age 15-65 09/23/1974 Pneumococcal series for age 50+ (1 of 2 - PCV) 09/23/1978 Colonoscopy through age 75 09/23/2004 Zoster (shingles) series for age 50+ (1 of 2) 09/23/2009 Tetanus booster 11/13/2021 11/14/2011, 03/11/2002 BMI (ht and wt on same day) for age 18+ 09/25/2024 09/26/2023, 09/18/2021, 11/11/2019, Additional history exists Depression screening for age 12+ 10/23/2024 10/24/2023, 09/06/2021, 09/06/2021, Additional history exists COVID-19 vaccine series ( - 2024- season) 2024 Influenza Vaccine (#1) 2024 Lipids for age 45-75 09/25/2028 09/26/2023, 09/06/2021, 11/18/2019, Additional history exists RSV vaccine for adults or (1 - 1-dose 75+ series) 09/23/2034 Hepatitis C screening for age 18-79 Completed 09/06/2021 Hepatitis B series for 19+ Aged Out N o longer eligible based on patient's age to complete this topic Goals Goal Patient Goal Type Associated Problems Recent Progress Patient-Stated? Author BLOOD PRESSURE-MAINTA INS BP LESS THAN 130/80 Blood Pressure No Homa Norwood MD BLOOD PRESSURE - MAINTAINS BP less than 140/90 Blood Pressure No Homa Norwood MD Procedures Procedure Name Priority Date/Time Associated Diagnosis Comments LIPID PANEL W REFLEX MEASURED LDL Routine 09/26/2023 4:36 PM CDT Hyperlipidemia LDL goal < 100 ANTI HCV Routine 09/06/2021 10:32 AM CDT Need for hepatitis C screening test from Last 3 Months or Most Recently Relevant to Health Maintenance Results * (ABNORMAL) LIPID PANEL W REFLEX MEASURED LDL (09/26/2023 4:36 PM CDT) CHOLESTEROL,TOTAL 217(H) 100 - 199 mg/dL 09/27/2023 2:19 PM CDT [facility] Comment: Cholesterol, Total Reference Ranges Desirable <200 mg/dL Borderline 200-239 mg/dL High >=240 mg/dL TRIGLYCERIDES 167(H) <150 mg/dL 09/27/2023 2:19 PM CDT [facility] HDL CHOLESTEROL 45 >40 mg/dL 2:19 PM CDT [facility] NON-HDL CHOLESTEROL 172(H) <145 mg/dl 09/27/2023 2:19 PM CDT [facility] CHOL/HDL RATIO 4.82(H) <4.50 09/27/2023 2:19 PM CDT [facility] LDL CHOLESTEROL 139(H) <=130 mg/dL 09/27/2023 2:19 PM CDT [facility] VLDL CHOLESTEROL 33(H) <=30 mg/dL 09/27/2023 2:19 PM CDT [facility] PROVIDER ORDERED STATUS RANDOM 09/27/2023 2:19 PM CDT [facility] Blood BLOOD SPECIMEN / Unknown Venipuncture / Unknown 09/26/2023 4:36 PM CDT 09/26/2023 4:37 PM CDT us Luz Hull MD CHEMISTRY Final Resul t [facility] [address] [place] [address], * ANTI HCV (09/06/2021 10:32 AM CDT) HEPATITIS C ANTIBODY Non-React rogelio Non-React rogelio 09/06/2021 8:01 PM CDT [facility] Comment:Antibodies to HCV no t detected; does not exclude the possibility of exposure to HCV. Blood BLOOD SPECIMEN / Unknown Venipuncture / Unknown 09/06/2021 10:32 AM CDT 09/06/2021 10:34 AM CDT us Jazzy FRAUSTO SEND OUTS Final Resu lt [facility] [address] [place] [address], [place] from Last 3 Months or Most Recently Relevant to Health Maintenance Insurance [facility] Care Teams Screening Specialist Relationship Specialty Start Date End Date Luz Hull MD [address] [place] [address] PCP - General Family Practice 10/24/23
--- NOTE | 2025-02-12 00:04 | CRLHL7_ITS ---
For Patients: As a result of the Century Cures Act, medical imaging exams and procedure reports are released immediately into your electronic medical record. You may view this report before your referring provider. If you have questions, please contact your health care provider. Indication: Left-sided weakness Technique: Noncontrast CT through the head with multiplanar reformats Comparison: MR brain performed 08/22/2023 Findings: Brain: No acute hemorrhage. No acute infarct. No significant mass effect or midline shift. No gross evidence of a mass lesion or cerebral edema. Severe chronic senescent disease. Chronic lacunar infarcts in the bilateral thalami. Ventricles: No acute abnormality appreciated. Orbits, sinuses, mastoids: Mild sinus mucosal thickening in the left maxillary sinus air-fluid level are present. Calvarium and soft tissues: No acute abnormality appreciated. Impression: 1. 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 2. Question acute left maxillary sinusitis. Please note that all CT scans at this facility use dose modulation, iterative reconstruction, and/or weight-based dosing when appropriate to reduce radiation dose to as low as reasonably achievable. Dictated by Gilberto Padilla MD @ 02/12/2025 12:30:45 AM (Electronically Signed)
--- NOTE | 2025-02-12 00:13 | CRLHL7_ITS ---
For Patients: As a result of the Century Cures Act, medical imaging exams and procedure reports are released immediately into your electronic medical record. You may view this report before your referring provider. If you have questions, please contact your health care provider. INDICATION: Hypoxia. TECHNIQUE: Chest 1 view. COMPARISON: Chest radiograph 08/19/2023. FINDINGS: Cardiovascular: Heart size and pulmonary vasculature are within normal limits. Overlying cardiac monitoring leads. Lungs and pleural spaces: There is a new streaky opacity in the right midlung. No sign of pleural effusion or pneumothorax. Bones and soft tissues: No significant findings. IMPRESSION: Streaky opacity in the right midlung may represent atelectasis or infiltrate. Dictated by Shayy Bobo MD @ 02/12/2025 1:24:33 AM (Electronically Signed)
[2025-02-12 00:45] LABS: Hematocrit* 39.2 % (37.0-53.0); Hemoglobin* 13.2 gm/dL (13.5-17.5); Immature Granulocytes Abs Auto 0.04 K/uL (0.00-0.30); Immature Granulocytes Pct Auto 0.4 %; Lactate* 4.6 mmol/L (0.5-1.9); Lymphocytes Absolute Auto 2.49 K/uL (0.90-2.90); Mean Corpuscular HGB Conc 34 gm/dL (32-36); Mean Corpuscular Hemoglobin 33 pg (26-34); Mean Corpuscular Volume 97 fL (80-100); RDW Coefficient of Variation % 13.7 % (11.5-15.5); Red Blood Count* 4.06 m/uL (4.30-5.90); Slide Review Reflex No; White Blood Count* 10.19 K/uL (4.50-11.00)
--- NOTE | 2025-02-12 00:55 | ED.NURSE ---
O2 sats 79% on RA when pt arrived to ER.
[2025-02-12 00:58] LABS: Albumin* 4.3 g/dL (3.3-5.0); Chloride* 86 mmol/L (96-114)
[2025-02-12 01:00] LABS: Blood Urea Nitrogen* 15 mg/dL (7-30); Creatinine* 0.7 mg/dL (0.5-1.5); Estimated Glomerular Filt Rate 102 ml/min
[2025-02-12 01:01] LABS: Alanine Aminotransferase* 29 U/L (4-50); Alkaline Phosphatase* 73 U/L (40-150); Bilirubin Direct* 0.7 mg/dL (0.0-0.5); Bilirubin Total* 1.5 mg/dL (0.1-1.5); Calcium* 8.7 mg/dL (8.4-10.6); Carbon Dioxide* 27 mmol/L (20-32); Glucose* 119 mg/dL (60-115); Total Protein* 7.9 g/dL (6.0-8.3)
[2025-02-12 01:04] LABS: Ethanol* < 0.01 % (0.01-0.03)
--- NOTE | 2025-02-12 01:09 | ED_ITS ---
HPI - Altered Mental Status General Date Seen: 02/12/25 Chief Complaint: Altered Mental Status Stated Complaint: stroke Time Seen by Provider: 02/12/25 00:06 Source: family and EMS Mode of arrival: EMS Limitations: altered mental status History of Present Illness HPI narrative: Patient is a 64-year-old chronic alcoholic who was found down by his son this evening. His son works two jobs and when he was home in between jobs earlier today the patient was sleeping in bed. Tonight when he came home he found him lying on the couch and was confused. He was soaked in urine. He was not coop erative and seemed to be struggling to move his left arm. EMS was called. He has a history of alcohol withdrawal seizures and his son is unaware of when his last drink was. He believes that he had cut back on his drinking over the past several months but still drinks vodka on a daily basis. The patient had not told his son that he had any plans to cut back or stop drinking. His last admission here was about 18 months ago and he declined to go to alcohol treatment at that time. His last visit to the clinic was 15 months ago. Unclear if he has been taking his blood pressure medication but his son believes that he has been. No recent head trauma. No known fevers. His breathing has some audible congestion. Related Data Previous Rx's ?Medication ?Instructions ?Recorded amlodipine 10 mg tablet 10 mg PO DAILY #30 tabs 08/09 10/01 folic acid 1 mg tablet 1 mg PO DAILY #30 tabs 08/25 lactulose 20 gram/30 mL oral 20 g (30 mL) PO BID #240 mL 08/26/23 solution lisinopril 40 mg tablet 40 mg PO DAILY #30 tabs 08/09 10/01 metoprolol succinate 50 mg 50 mg PO DAILY #30 tabs tablet,extended release 24 hr Allergies Allergy/AdvReac Type Severity Reaction Status Date / Time No Known Drug Allergies Allergy Verified 08/18/23 21:10 Review of Systems Narrative: Patient is normally able to ambulate around his home. His son is his primary caregiver. He believes that he is currently drinking about a half pt of vodka per day but there is no way to know for certain. His PCP is Dr. Albright from [facility]. Review of systems is otherwise unobtainable from the patient. 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, unspecified with alcohol-induced persisting dementia (ICD-10) Hypertension ?I10 - Essential (primary) hypertension (ICD-10) Social History What is your current living situation?: I presently have a place to live Problems where you live: declined to answer In the past 12 months, utilities in danger of being shut off: unable to answer In past 12 months, lack of transportation kept you from medical appts, meetings, work, or getting things needed for daily living: unable to answer In the past 12 mos, have been you worried that your food would run out before you had money to buy more?: unable to answer In the past 12 mos, the food you bought just didn't last and you didn't have money to buy more?: unable to answer Highest level of school completed/degree received: don't know How often do you have a drink containing alcohol: 4 or more times a week Alcohol type: hard liquor How many standard drinks containing alcohol do you have on a typical day: 5 or 6 How often do you have six or more drinks on one occasion: Daily or almost daily AUDIT-C Alcohol total score: 10 Non-prescribed substance use: denies use Non-prescribed substance use details: 1 [place] DAILY How often does anyone, including family, friends and others, physically hurt you : unable to answer How often does anyone, including family, friends and others, insult or talk down to you: unable to answer How often does anyone, including family, friends and others, threaten you with harm: unable to answer How often does anyone, including family, friends and others, scream or curse at you: unable to answer Exam Narrative: Exam Narrative: Vitals noted. He is awake and does answer questions. He is fairly cooperative with cares. He is disheveled. HEENT: Conjunctiva clear. Tympanic membranes are pearly white bilaterally. Posterior pharynx is clear without erythema or exudate. Poor dentition with numerous missing teeth. Neck is supple without adenopathy, thyromegaly, carotid bruit. Lungs: Loose rhonchi throughout. Mild hypoxia. No wheezing. Heart: Regular rate and rhythm without murmur. Abdomen: Scaphoid, Soft and apparently nontender. No guarding, rigidity, rebound. Bowel sounds are normal. No palpable masses. Extremities: No cyanosis or edema. Good distal pulses. Skin: No abnormalities noted of the exposed skin. Neurologic: Awake but disoriented. Moves all extremities symmetrically. No facial droop. Cranial nerves grossly intact. Const: Vital Signs, click to edit/add: Vital Signs - 24 hr 02/12/25 00:16 02/12/25 00:20 02/12/25 00:21 Temperature 97.8 F Pulse Rate 110 H Pulse Rate [Apical ] 123 H Respiratory Rate 27 H 26 H 16 Blood Pressure 192/133 H Blood Pressure [Ri ght Upper Arm] 192/133 H Pulse Oximetry 97 92 Oxygen Delivery Me thod Nasal Cannula Oxygen Flow Rate 2 02/12/25 00:30 02/12/25 00:37 02/12/25 00:46 Temperature Pulse Rate 103 H 100 Pulse Rate [Apical ] Respiratory Rate 19 27 H 22 Blood Pressure 190/129 H Blood Pressure [Ri ght Upper Arm] Pulse Oximetry 94 92 93 Oxygen Delivery Me thod Oxygen Flow Rate 02/12/25 00:54 02/12/25 01:00 02/12/25 01:15 Temperature Pulse Rate 111 H 99 Pulse Rate [Apical ] Respiratory Rate 22 26 H 26 H Blood Pressure 196/122 H Blood Pressure [Ri ght Upper Arm] Pulse Oximetry 92 92 Oxygen Delivery Me thod Nasal Cannula Oxygen Flow Rate 2 02/12/25 01:20 02/12/25 01:23 02/12/25 01:30 Temperature Pulse Rate 109 H 104 H Pulse Rate [Apical ] Respiratory Rate 27 H 26 H 10 L Blood Pressure 173/118 H 170/105 H Blood Pressure [Ri ght Upper Arm] Pulse Oximetry 92 88 Oxygen Delivery Me thod Oxygen Flow Rate 02/12/25 01:45 02/12/25 01:46 02/12/25 01:52 Temperature Pulse Rate 95 96 98 Pulse Rate [Apical ] Respiratory Rate 16 19 26 H Blood Pressure 171/108 H 179/123 H Blood Pressure [Ri ght Upper Arm] Pulse Oximetry 93 88 97 Oxygen Delivery Me thod Oxygen Flow Rate 02/12/25 01:53 02/12/25 01:55 Temperature Pulse Rate 99 98 Pulse Rate [Apical ] Respiratory Rate 23 21 Blood Pressure 183/126 H Blood Pressure [Ri ght Upper Arm] Pulse Oximetry 97 96 Oxygen Delivery Me thod Oxygen Flow Rate Course Course ED Course: Patient seen and examined. He was initially taken directly to CT where a noncontrast CT of his head showed some old lacunar infarcts but no acute findings. Blood alcohol is 0. Lactate is 4.6. CBC shows a normal white blood count, hemoglobin of 13.2, normal platelet count. Basic metabolic panel shows sodium of 126, potassium 3.3. LFTs are normal other than a direct bilirubin of 0.7 and an AST of 49. Lipase is 118. UA shows 3+ protein, 2+ blood, trace ketones. Reevaluation(s) Reevaluation #1: Patient is given diazepam 5 mg IV and metoprolol 5 mg IV. Triple swab negative. Chest x-ray shows a right middle lobe infiltrate. He is given Rocephin 1 g IV and Zithromax 500 mg IV after a blood culture is drawn. He is given IV thiamin and folic acid. Normal saline plus 20 mEq KCL is started at 100 mL/hour. Reevaluation #2: I contacted the Ehospitalist from [facility] kindly agrees to admit him for further care. Vital Signs Vital signs: Initial Vital Signs Pulse Rate 110 H 02/12/25 00:16 Respiratory Rate 27 H 02/12/25 00:16 Pulse Oximetry 97 02/12/25 00:16 Vital Signs Pulse Rate 110 H 02/12/25 00:16 Respiratory Rate 27 H 02/12/25 00:16 Pulse Oximetry 97 02/12/25 00:16 Temperature 97.8 F 02/12/25 00:20 Pulse Rate 98 02/12/25 01:55 Respiratory Rate 21 02/12/25 01:55 Blood Pressure 183/126 H 02/12/25 01:55 Pulse Oximetry 96 02/12/25 01:55 Oxygen Delivery Method Nasal Cannula 02/12/25 01:00 Oxygen Flow Rate 2 02/12/25 01:00 Medications Administered Medications: Generic Name Dose Route Start Last Admin Trade Name Freq PRN Reason Stop Dose Admin Diazepam 5 mg 02/12/25 01:02 02/12/25 01:24 Diazepam 5 Mg/Ml Inj IV 02/12/25 01:03 5 mg ONCE ONE Administration Ceftriaxone Sodium 1 gm/ 100 mls @ 200 mls/hr 02/12/25 01:03 02/12/25 01:59 Sodium Chloride IVPB 02/12/25 01:04 Infused ONCE ONE Infusion Azithromycin 500 mg/ Sodium 255 mls @ 255 mls/hr 02/12/25 01:03 02/12/25 01:29 Chloride IVPB 02/12/25 01:04 255 mls/hr ONCE ONE Administration Metoprolol Tartrate 5 mg 02/12/25 01:02 02/12/25 01:25 Metoprolol Tartrate 1 Mg/Ml Inj IVP 02/12/25 01:03 5 mg ONCE ONE Administration MDM - Altered Mental Status Lab Data Labs: Lab Results 02/12/25 Range/Units 00:35 WBC 10.19 (4.50-11.00) K/uL RBC 4.06 L (4.30-5.90) m/uL Hgb 13.2 L (13.5-17.5) gm/dL Hct 39.2 (37.0-53.0) % MCV 97 (80-100) fL MCH 33 (26-34) pg MCHC 34 (32-36) gm/dL RDW Coeff of Briana 13.7 (11.5-15.5) % Plt Count 238 (140-440) K/uL Neut % (Auto) 65.4 (42.0-72.0) % Lymph % (Auto) 24.4 (20-44) % [place] % (Auto) 9.7 (0.0-11.0) % Eos % (Auto) 0.0 (0.0-7.0) % Baso % (Auto) 0.1 (0.0-3.0) % Neut # (Auto) 6.66 (1.7-7.0) K/uL Lymph # (Auto) 2.49 (0.90-2.90) K/uL [place] # (Auto) 1.00 H (0.00-0.90) K/UL Eos # (Auto) 0.00 (0.00-0.50) K/uL Baso # (Auto) 0.01 (0.00-0.30) K/uL Abs Immat Gran (auto) 0.04 (0.00-0.30) K/uL Imm/Tot Granulo (auto) 0.4 % Sodium 126 L (135-149) mmol/L Potassium 3.3 L (3.6-5.1) mmol/L Chloride 86 L (96-114) mmol/L Carbon Dioxide 27 (20-32) mmol/L Anion Gap 13 (7-15) mEq/L BUN 15 (7-30) mg/dL Creatinine 0.7 (0.5-1.5) mg/dL Estimated GFR 102 ml/min Glucose 119 H (60-115) mg/dL Lactate 4.6 H* (0.5-1.9) mmol/L Calcium 8.7 (8.4-10.6) mg/dL Total Bilirubin 1.5 (0.1-1.5) mg/dL Direct Bilirubin 0.7 H (0.0-0.5) mg/dL AST 49 H (12-35) U/L ALT 29 (4-50) U/L Alkaline Phosphatase 73 (40-150) U/L Total Protein 7.9 (6.0-8.3) g/dL Albumin 4.3 (3.3-5.0) g/dL Lipase 118 (23-300) U/L Urine Color Yellow (Yellow) Urine Appearance Clear (Clear) Urine pH 6.5 (5.0-8.5) Ur Specific [place] 1.025 (1.000-1.030) Urine Protein 3+ A (Negative) Urine Glucose (UA) Negative (Negative) Urine Ketones Trace A (Negative) Urine Blood 2+ A (Negative) Urine Nitrite Negative (Negative) Urine Bilirubin Negative (Negative) Urine Urobilinogen 1.0 (0.2-1.0) Ur Leukocyte Esterase Negative (Negative) Ethyl Alcohol < 0.01 (0.01-0.03) % SARS-CoV-2 (PCR) Negative SARS-CoV-2 (Negative) Influenza Type A (PCR) Negative PCR FLU A (Negative) Influenza Type B (PCR) Negative PCR FLU B (Negative) RSV (PCR) Negative PCR RSV (Negative) Discharge Plan Discharge Clinical Impression: RML pneumonia, Chronic alcoholism, Hyponatremia, Hypokalemia, Uncontrolled hypertension Patient Disposition: Admitted As Inpatient Condition: Stable
[2025-02-12 01:17] LABS: Potassium* 3.3 mmol/L (3.6-5.1)
[2025-02-12 01:18] LABS: PCR FLU A Negative PCR FLU A (Negative); PCR FLU B Negative PCR FLU B (Negative); PCR RSV Negative PCR RSV (Negative); SARS PCR* Negative SARS-CoV-2 (Negative)
[2025-02-12 01:20] LABS: Aspartate Amino Transferase* 49 U/L (12-35)
--- OUTSIDE RECORDS SUMMARY | 2025-02-12 01:22 | XMS_ITS | Clinical Summary ---
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 Not on file Not on file Not [...] - 199 mg/dL 09/27/2023 2:19 PM CDT [facility] Comment: Cholesterol, Total Reference Ranges Desirable <200 mg/dL Borderline 200-239 mg/dL High >=240 mg/dL TRIGLYCERIDES 167(H) <150 mg/dL 09/27/2023 2:19 PM CDT [facility] HDL CHOLESTEROL 45 >40 mg/dL 2:19 PM CDT [facility] NON-HDL CHOLESTEROL 172(H) <145 mg/dl 09/27/2023 2:19 PM CDT [facility] CHOL/HDL RATIO 4.82(H) <4.50 09/27/2023 2:19 PM CDT [facility] LDL CHOLESTEROL 139(H) <=130 mg/dL 09/27/2023 2:19 PM CDT [facility] VLDL CHOLESTEROL 33(H) <=30 mg/dL 09/27/2023 2:19 PM CDT [facility] PROVIDER ORDERED STATUS RANDOM 09/27/2023 2:19 PM CDT [facility] Blood BLOOD SPECIMEN / Unknown Venipuncture / Unknown 09/26/2023 4:36 PM CDT 09/26/2023 4:37 PM CDT us Luz Hull MD CHEMISTRY Final Resul t [facility] [address] [place] [address], * ANTI HCV (09/06/2021 10:32 AM CDT) HEPATITIS C ANTIBODY Non-React rogelio Non-React rogelio 09/06/2021 8:01 PM CDT [facility] Comment:Antibodies to HCV no t detected; does not exclude the possibility of exposure to HCV. Blood BLOOD SPECIMEN / Unknown Venipuncture / Unknown 09/06/2021 10:32 AM CDT 09/06/2021 10:34 AM CDT us Jazzy FRAUSTO SEND OUTS Final Resu lt [facility] [address] [place] [address], [place] from Last 3 Months or Most Recently Relevant to Health Maintenance Insurance [facility] Care Teams Collections Professional Relationship Specialty Start Date End Date Luz Hull MD [address] [place] [address] PCP - General Family Practice 10/24/23
[2025-02-12 01:23] LABS: Anion Gap 13 mEq/L (7-15); Sodium* 126 mmol/L (135-149)
[2025-02-12] MEDS: diazePAM 5 MG/ML inj IV (01:24)
[2025-02-12] MEDS: METOPROLOL TARTRATE 1 MG/ML inj 5 MG IVP ×3 (01:25→15:55)
[2025-02-12] MEDS: cefTRIAXone 1 GM in 0.9 % SODIUM CHLORIDE Mini-bag 100 ML IVPB (01:26)
[2025-02-12] MEDS: AZITHROMYCIN 500 MG in 0.9 % SODIUM CHLORIDE 250 ml 250 ML 255 MG IVPB (01:29)
[2025-02-12 01:48] LABS: Appearance Urine Clear (Clear)
--- NOTE | 2025-02-12 01:56 | W.PM.TELEH&P ---
Telehealth- H&P: HPI History of Present Illness Date Seen: 02/12/25 Chief complaint: altered mental status Narrative: José Luis Hanson is seen as an Interactive Telehealth visit. José Luis Hanson is a 64 year old male who has h/o alcohol abuse in the past, admitted about a year and a half ago with alcohol withdrawal but did not end up going to treatment presents today when son found him at home passed out. Patient was covered in urine, and seemed to be confused, so he was brought in to be evaluated. He was too weak to ambulate, and he was reportedly very unsteady. His alcohol level was 0, states that his last drink was many days ago, over 10 days ago. Reportedly he drinks about a pint to a pint and a half of vodka daily. He also has a history of alcohol withdrawal seizures, as well as hypertension. He was saturating in the mid 80s on room air, so he was given 2 L of supplemental oxygen. His lungs are coarse, chest x-ray shows possible right middle lobe infiltrate. Sodium was low at 126, elevated lactate as well. He tested negative for COVID, RSV, influenza. Temperature is within normal limits at 97.8, UA was negative. With his confusion and hypoxia as well as low sodium, he will be admitted for further management. 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, unspecified with alcohol-induced persisting dementia (ICD-10) Hypertension ?I10 - Essential (primary) hypertension (ICD-10) Social History What is your current living situation?: I presently have a place to live Problems where you live: declined to answer In the past 12 months, utilities in danger of being shut off: unable to answer In past 12 months, lack of transportation kept you from medical appts, meetings, work, or getting things needed for daily living: unable to answer In the past 12 mos, have been you worried that your food would run out before you had money to buy more?: unable to answer In the past 12 mos, the food you bought just didn't last and you didn't have money to buy more?: unable to answer Highest level of school completed/degree received: don't know How often do you have a drink containing alcohol: 4 or more times a week Alcohol type: hard liquor How many standard drinks containing alcohol do you have on a typical day: 5 or 6 How often do you have six or more drinks on one occasion: Daily or almost daily AUDIT-C Alcohol total score: 10 Non-prescribed substance use: denies use Non-prescribed substance use details: 1 [place] DAILY How often does anyone, including family, friends and others, physically hurt you: unable to answer How often does anyone, including family, friends and others, insult or talk down to you: unable to answer How often does anyone, including family, friends and others, threaten you with harm: unable to answer How often does anyone, including family, friends and others, scream or curse at you: unable to answer Meds Home Medications and Allergies Home Medications ?Medication ?Instructions ?Recorded ?Confirmed ?Type amlodipine 10 mg tablet 10 mg PO DAILY #30 tabs 08/26/23 Rx folic acid 1 mg tablet 1 mg PO DAILY #30 tabs 08/26/23 Rx lactulose 20 gram/30 mL oral 20 g (30 mL) PO BID #240 mL 08/26/23 Rx solution lisinopril 40 mg tablet 40 mg PO DAILY #30 tabs 08/26/23 Rx metoprolol succinate 50 mg 50 mg PO DAILY #30 tabs 08/26/23 Rx tablet,extended release 24 hr Allergies Allergy/AdvReac Type Severity Reaction Status Date / Time No Known Drug Allergies Allergy Verified 08/18/23 21:10 Exam Narrative Exam Narrative: Physical Exam GENERAL: ?vital signs reviewed, disheveled, thin, malnourished appearing HEENT: pupils are equal round and reactive to light, favors right lateral gaze NECK: Supple without lymphadenopathy or thyromegaly according to nursing staff examination observation HEART: Regular rate and rhythm without any rubs, murmurs, or gallops. LUNGS: Clear to auscultation bilaterally with good air movement throughout ABDOMEN: Observation from nurse assisted exam, abdomen appears soft, nontender, and nondistended with Positive bowel sounds noted. NEURO: Strength and sensation is observed to be grossly within normal limits in the upper and lower extremities.? No focal strength deficit is observed. EXT: No edema, LEs thin SKIN:? zunilda complexion Const Vital Signs, click to edit/add: Vital Signs - 24 hr 02/12/25 00:16 02/12/25 00:20 02/12/25 00:21 Temperature 97.8 F Pulse Rate 110 H Pulse Rate [Apical] 123 H Respiratory Rate 27 H 26 H 16 Blood Pressure 192/133 H Blood Pressure [Right Upper Arm] 192/133 H Pulse Oximetry 97 92 Oxygen Delivery Method Nasal Cannula Oxygen Flow Rate 2 02/12/25 00:30 02/12/25 00:37 02/12/25 00:46 Temperature Pulse Rate 103 H 100 Pulse Rate [Apical] Respiratory Rate 19 27 H 22 Blood Pressure 190/129 H Blood Pressure [Right Upper Arm] Pulse Oximetry 94 92 93 Oxygen Delivery Method Oxygen Flow Rate 02/12/25 00:54 02/12/25 01:00 02/12/25 01:15 Temperature Pulse Rate 111 H 99 Pulse Rate [Apical] Respiratory Rate 22 26 H 26 H Blood Pressure 196/122 H Blood Pressure [Right Upper Arm] Pulse Oximetry 92 92 Oxygen Delivery Method Nasal Cannula Oxygen Flow Rate 2 02/12/25 01:20 02/12/25 01:23 02/12/25 01:30 Temperature Pulse Rate 109 H 104 H Pulse Rate [Apical] Respiratory Rate 27 H 26 H 10 L Blood Pressure 173/118 H 170/105 H Blood Pressure [Right Upper Arm] Pulse Oximetry 92 88 Oxygen Delivery Method Oxygen Flow Rate 02/12/25 01:45 02/12/25 01:46 02/12/25 01:52 Temperature Pulse Rate 95 96 98 Pulse Rate [Apical] Respiratory Rate 16 19 26 H Blood Pressure 171/108 H 179/123 H Blood Pressure [Right Upper Arm] Pulse Oximetry 93 88 97 Oxygen Delivery Method Oxygen Flow Rate Hospitalist - H&P: Result Labs Labs: Short CBC 02/12/25 Range/Units 00:35 WBC 10.19 (4.50-11.00) K/uL Hgb 13.2 L (13.5-17.5) gm/dL Hct 39.2 (37.0-53.0) % Plt Count 238 (140-440) K/uL BMP 02/12/25 00:35 Sodium 126 L Potassium 3.3 L Chloride 86 L Carbon Dioxide 27 BUN 15 Creatinine 0.7 Glucose 119 H Calcium 8.7 Liver Function 02/12/25 Range/Units 00:35 Total Bilirubin 1.5 (0.1-1.5) mg/dL Direct Bilirubin 0.7 H (0.0-0.5) mg/dL AST 49 H (12-35) U/L ALT 29 (4-50) U/L Alkaline Phosphatase 73 (40-150) U/L Albumin 4.3 (3.3-5.0) g/dL Urine 02/12/25 Range/Units 00:35 Urine Color Yellow (Yellow) Urine Appearance Clear (Clear) Urine pH 6.5 (5.0-8.5) Ur Specific [place] 1.025 (1.000-1.030) Urine Protein 3+ A (Negative) Urine Glucose (UA) Negative (Negative) Assessment and Plan Assessment and plan (1) Confusion: Status: Acute Assessment and Plan: Multifactorial, most likely related to alcohol abuse, possible withdrawal with postictal considerations, however Wernicke's encephalopathy versus Korsakoff high on the differential. Patient does have history of alcohol withdrawal seizures as well. CT head negative for acute pathology. Will continue to monitor for delirium. [facility] protocol. Replace electrolytes, multivitamins including hign dose thiamine replacement. If no improvement in 24 to 48 hours, can consider MRI of the brain. (2) Chronic alcoholism: Problem comment: long standing chemical dependency. We encourage the patient to seek inpatient chemical dependency treatment. He declined. I spoke with his son on the day of discharge and he will continue to encourage his father to make better choices. Status: Acute Assessment and Plan: Will explore the possibility of chemical dependency treatment again (3) RML pneumonia: Status: Acute Assessment and Plan: Chest x-ray with right middle lobe opacity. COVID, RSV, influenza negative. Patient is requiring 2 L supplemental oxygen, with acute hypoxic respiratory failure. Empiric azithromycin, with no signs of sepsis or SIRS (4) Hyponatremia: Status: Acute Assessment and Plan: Likely hypovolemic from alcohol. Will administer IV fluids and recheck (5) Hypokalemia: Status: Acute Assessment and Plan: Replace as indicated (6) Uncontrolled hypertension: Status: Acute Assessment and Plan: Suspect medication noncompliance. Patient is on amlodipine, lisinopril, metoprolol. Will continue these as able before adding another agent (7) Chronic alcoholic brain syndrome: Problem comment: on MOCA which did improve to a on SLUMs. Limited insight into scope of problem. Status: Acute Telehealth: Statement Statement Telehealth Visit: Today's History and Physical is provided via interactive telehealth by Beni Daley MD.? Patient is located at [facility].? Provider is located at [facility].? Nursing staff assisted with the patient's exam. The visit being done today meets criteria for a telehealth visit and the patient or patient?s parent/guardian is aware the visit is a telehealth visit. Camera Start Time: 02:54 Camera End Time: 03:11
[2025-02-12] MEDS: FOLIC ACID 1 MG in 0.9 % SODIUM CHLORIDE 50 ml 50 ML 100.4 MG IVPB (02:10)
[2025-02-12] MEDS: THIAMINE 250 MG in 0.9 % SODIUM CHLORIDE 100 ml 100 ML 102.5 MG IVPB (02:11)
[2025-02-12] MEDS: POTASSIUM CHLORIDE 20 MEQ in 0.9 % SODIUM CHLORIDE 1000 ml 1,000 ML 100 MEQ IV (02:11)
[2025-02-12] MEDS: POTASSIUM CHLORIDE 10 MEQ/100 ML PIGGYBACK 100 MEQ IVPB ×6 (03:24→21:46)
[2025-02-12] MEDS: SODIUM CHLORIDE 0.9 % (FLUSH) 10 ML SYRINGE 5 ML IVF ×3 (03:47→19:15)
[2025-02-12] MEDS: ACETAMINOPHEN 650 MG SUPP PR (04:54)
[2025-02-12 07:14] LABS: Hematocrit* 32.3 % (37.0-53.0); Hemoglobin* 10.9 gm/dL (13.5-17.5); Immature Granulocytes Abs Auto 0.01 K/uL (0.00-0.30); Immature Granulocytes Pct Auto 0.1 %; Lymphocytes Absolute Auto 2.68 K/uL (0.90-2.90); Mean Corpuscular HGB Conc 34 gm/dL (32-36); Mean Corpuscular Hemoglobin 33 pg (26-34); Mean Corpuscular Volume 98 fL (80-100); RDW Coefficient of Variation % 13.8 % (11.5-15.5); Red Blood Count* 3.30 m/uL (4.30-5.90); White Blood Count* 8.02 K/uL (4.50-11.00)
[2025-02-12 07:31] LABS: HCO3 VBG 28 mmol/L (21-28); Lactate* 3.0 mmol/L (0.5-1.9); PCO2 VBG 41 mmHG (40-50); PO2 VBG 34.0 mmHG (25-47); pH VBG 7.438 (7.32-7.43)
[2025-02-12 07:33] LABS: Albumin* 3.2 g/dL (3.3-5.0); Chloride* 91 mmol/L (96-114); Sodium* 126 mmol/L (135-149)
[2025-02-12 07:36] LABS: Alanine Aminotransferase* 14 U/L (4-50); Alkaline Phosphatase* 74 U/L (40-150); Anion Gap 9 mEq/L (7-15); Aspartate Amino Transferase* 40 U/L (12-35); Bilirubin Total* 0.7 mg/dL (0.1-1.5); Blood Urea Nitrogen* 13 mg/dL (7-30); Carbon Dioxide* 26 mmol/L (20-32); Creatinine* 0.7 mg/dL (0.5-1.5); Estimated Glomerular Filt Rate 102 ml/min; Potassium* 3.0 mmol/L (3.6-5.1); Slide Review Reflex No; Total Protein* 5.7 g/dL (6.0-8.3)
[2025-02-12 07:37] LABS: Calcium* 7.9 mg/dL (8.4-10.6); Glucose* 86 mg/dL (60-115)
--- NOTE | 2025-02-12 07:37 | CRLHL7_ITS ---
For Patients: As a result of the Century Cures Act, medical imaging exams and procedure reports are released immediately into your electronic medical record. You may view this report before your referring provider. If you have questions, please contact your health care provider. INDICATION: Fever, pneumonia TECHNIQUE: CT chest without contrast. COMPARISON: Same day chest radiograph FINDINGS: Lungs and pleura: Layering bubbly opacities in the lower trachea and bilateral mainstem bronchi. Right upper lobe elongated cavitary consolidation measuring 2.3 x 3.1 cm. Additional scattered ground-glass and tree-in-bud nodular opacities in the right lower lobe. Mild bronchial wall thickening in the left lower lobe. No pleural effusions, pleural thickening, or pneumothorax. Heart and vasculature: Heart size is normal. Thoracic aorta and pulmonary artery are normal in caliber. Moderate to severe coronary calcifications. Atherosclerotic calcifications of the thoracic aorta and branch vasculature. Lymph nodes/mediastinum: No mediastinal, hilar, or axillary adenopathy. Chest wall: No masses. Upper abdomen: Severe circumferential atherosclerotic calcifications of the visualized abdominal aorta. Left hepatic lobe hypoattenuating lesion measuring 1 cm, possibly a cyst in the absence of malignancy history Bones: Unremarkable for age. IMPRESSION: 1. Multifocal pneumonia with dominant right upper lobe elongated cavitary consolidation measuring up 3.1 cm. 2. Layering bubbly opacities in the lower trachea and bilateral mainstem bronchi raise concern for aspiration 3. Severe atherosclerotic calcifications, predominantly within the visualized abdominal aorta Please note that all CT scans at this facility use dose modulation, iterative reconstruction, and/or weight-based dosing when appropriate to reduce radiation dose to as low as reasonably achievable. Dictated by Giselle Gonsalez MD @ 02/12/2025 9:05:38 AM (Electronically Signed)
--- NOTE | 2025-02-12 07:46 | PC.NURSE ---
Pt admitted around 0240. Pt is oriented to self only. Pt had fever of 101.6 gave PRN Tylenol. Pt CIWAs ranged between 5-14 managed with PRN medication per protocol. Pt was turned and repositioned throughout night. Pt had 1 large loose incontinent stool.
[2025-02-12] MEDS: AMLODIPINE 10 MG TABLET PO (09:09)
[2025-02-12] MEDS: THIAMINE 500 MG in 0.9 % SODIUM CHLORIDE 100 ml 100 ML 105 MG IVPB ×3 (09:09→20:39)
[2025-02-12] MEDS: FOLIC ACID 1 MG TABLET PO (09:09)
[2025-02-12] MEDS: METOPROLOL SUCCINATE (XL) 50 MG TAB PO (09:10)
--- NOTE | 2025-02-12 09:16 | P.NUTASMT_ITS ---
Hospital Nutrition Assessment Patient Data Patient Gender: Male Patient Age: 64 Height: 5 ft 3 in (160.02 cm - taken from 08/2023 admit) Weight: 94 lb (42.73 kg) Body Mass Index: 16.6 Weight Calculations Minetto Body Weight (lbs): 124.00 Minetto Body Weight (kg): 56.25 Percent of Minetto Body Weight: 76 Adjusted Body Weight (lbs): 116.50 Adjusted Body Weight (kg): 52.84 Basal Energy Expenditure (BEE): 1012.97 Basal Energy Expenditure (BEE) Adjusted Weight: 1153.26 Activity/Stress Factors Injury Factor/Activity Factor Value: 1.3 Total Energy Requirements Kcal requirements (current wt): 1316.861 Kcal requirements (adj wt): 1499.238 Protein Need (current wt): 1.2 Total Protein (current wt): 51.165 Protein Need (adj wt): 1.2 Total Protein (adj wt): 63.408 Fluid Need (current wt): 30 Total Fluid (current wt): 1279.130 Fluid Need (adj wt): 30 Total Fluid (adj wt): 1585.20 Nutrition Assessment Diet Order: Regular Food Modified for Dysphagia: 7-Regular Liquid Modified for Dysphagia: 0-Thin Allergies: NKFA Appetite Prior to Admission: Poor Appetite and Intake: No intakes yet since admit. 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 Son checks on him multiples times daily. Medications Medications: reviewed. Lab Results Lab Results: reviewed. Education Topic Comment: Diet education provided August 2023 related to sobriety and general healthy diet. Handouts provided at that time to support discussion. Assessment/Plan PES Statement: Underweight BMI related to low oral intake and EtOH abuse as evidenced by BMI of 16.6 kg/m2. Nutritional Assessment Summary: RDN with nutrition screen related to underweight BMI. Patient is know to RDN from previous hospitalization in August 2023. Patient's weight history is limited, however he has lost weight since August 2023. He as lost about 4 lbs within 1.5 years. This is not significant loss, however concerned patient is at nutrition risk with BMI and intakes. Weight history: 02/12/2025 - 94 lb 08/26/2023 - 98 lbs 08/24/2023 - 101 lbs 2.99 oz 08/19/2023 - 101 lbs Per nursing, Speech therapy is consulted. [facility] protocol in place. Patient is alerted to self only. RDN will hold off on nutrition interventions at this time due to patient status. Will continue to monitor and follow-up prn. Discharge Plan-Living Situation: TBD Plan/Recommendation: Diet order per MD order. RDN will continue to monitor and follow-up prn. No nutrition interventions at this time due to patient's current cognition status. Malnutrition Assessment Current Energy Intake: Unable To Determine Weight Changes: None (Limited weight history. Loss of 4lbs in 1.5 years - not significant. ) Recommended Malnutrition Diagnosis: Further Physical Evaluation Required By MD To Determine
--- NOTE | 2025-02-12 09:29 | P.IMPN_ITS ---
Assessment and Plan Assessment and plan (1) RML pneumonia: Problem comment: - concern for aspiration, fever 02/12/25 - abx broadened to Zosyn 02/12, Speech therapy consult Status: Acute (2) Confusion: Problem comment: - ddx: acute illness, ETOH withdrawal. - chronic CVA on head CT 02/12 with unclear baseline for cognition Status: Acute (3) At risk for aspiration pneumonia: Problem comment: - given findings on CT and history of alcohol use disorder - on Zosyn - seen by speech therapy on 02/12/25; okay to feed if patient is awake and able to sit up, will require nurse bedside for feeding to monitor symptoms - currently holding oral medications, add back in as tolerated/appropriate Status: Acute (4) Hyponatremia: Problem comment: - presumably 2/2 ETOH use disorder, follow Status: Acute (5) Hypokalemia: Problem comment: - replace and follow, check Magnesium Status: Acute (6) Anemia: Problem comment: - baseline Hgb 13; 10.9 on .; typically macrocytic but current MCV 98 - ddx: B12/Folate deficiency, nutritional, gastritis - PPI, hemoccult stool, continue to follow Status: Acute (7) Alcohol use disorder: Problem comment: - residential ETOH overuse with sequela of anemia, elevated INR, elevated AST, hyponatremia Status: Acute (8) Protein-calorie malnutrition, severe: Problem comment: - as evidenced by low BMI, cachectic appearance, chronic ETOH use with sequela noted above Status: Acute (9) Hypertension: Problem comment: - prescriptions for Lisinopril, Chlorthalidone, Amlodipine, and Metoprolol, unclear compliance, has had letters from PCP requesting appt - IV Metoprolol, control withdrawal symptoms, restart other oral medications as tolerated Status: Acute Plan - per above - ronan Gonzalez updated bedside, questions answered Subjective Date Seen: 02/12/25 Interval history: José Luis was admitted to the hospital early this morning for AMS. Son brought him in for confusion and weakness, known history of alcohol overuse. Likely last drink was sometime on 02/10/2025, but unclear. In the emergency room: - lactate 4.6, potassium 3.3, sodium 126. Elevated AST. Hemoglobin 13.2 - head CT with chronic lacunar infarcts, possible left maxillary sinusitis. - chest x-ray concerning for right midlung pneumonia Upon arrival to the floor, patient remained confused; temperature noted to be 101.2, HR 80-90s, hypertensive. Has received IV fluids with improvement in lactate to 2.6. Repeat hemoglobin 10.9 CT chest obtained and notable for multifocal pneumonia with dominant right upper lobe cavitary consolidation and findings in trachea concerning for aspiration. Bedside evaluation by nursing staff concerning for aspiration, speech therapy consultation ordered. Antibiotics have been broadened to Zosyn this morning. Received Phenobarbital x1 for agitation, also on prn Ativan per CIWA scores. Exam Narrative: Exam Narrative: GEN: Laying in bed, intermittently answering questions alternating with agitation, difficult to understand. Cachectic HEENT: Edentulous, pinpoint pupils, EOMIs bilaterally, no scleral icterus CV: RRR, No concerning murmurs R: Rhonchi throughout bilateral lung cox, R>L, no wheezing, intermittently tachypneic Ext: thin extremities, + pulses, + onychomycosis Skin: Per nursing staff, sacral erythema (unable to formally examine during visit) Neuro: No focal deficits on limited exam, not following directions Psych: Intermittent agitation, redirectable Const: Vital Signs, click to edit/add: Vital Signs - 24 hr 02/12/25 00:16 02/12/25 00:20 02/12/25 00:20 Temperature 97.8 F Pulse Rate 110 H Pulse Rate [Apical ] 123 H Pulse Rate [Pulse Oximeter] Respiratory Rate 27 H 26 H 29 H Blood Pressure Blood Pressure [Ri ght Arm] Blood Pressure [Ri ght Upper Arm] 192/133 H Pulse Oximetry 97 92 Oxygen Delivery Me thod Nasal Cannula Oxygen Flow Rate 2 02/12/25 00:21 02/12/25 00:30 02/12/25 00:37 Temperature Pulse Rate 103 H Pulse Rate [Apical ] Pulse Rate [Pulse Oximeter] Respiratory Rate 16 19 27 H Blood Pressure 192/133 H 190/129 H Blood Pressure [Ri ght Arm] Blood Pressure [Ri ght Upper Arm] Pulse Oximetry 94 92 Oxygen Delivery Me thod Oxygen Flow Rate 02/12/25 00:40 02/12/25 00:46 02/12/25 00:50 Temperature Pulse Rate 100 Pulse Rate [Apical ] Pulse Rate [Pulse Oximeter] Respiratory Rate 24 22 22 Blood Pressure Blood Pressure [Ri ght Arm] Blood Pressure [Ri ght Upper Arm] Pulse Oximetry 95 93 95 Oxygen Delivery Me thod Oxygen Flow Rate 02/12/25 00:54 02/12/25 01:00 02/12/25 01:10 Temperature Pulse Rate 111 H 99 Pulse Rate [Apical ] Pulse Rate [Pulse Oximeter] Respiratory Rate 22 26 H 31 H Blood Pressure 196/122 H Blood Pressure [Ri ght Arm] Blood Pressure [Ri ght Upper Arm] Pulse Oximetry 92 92 Oxygen Delivery Me thod Nasal Cannula Oxygen Flow Rate 2 02/12/25 01:15 02/12/25 01:20 02/12/25 01:21 Temperature Pulse Rate Pulse Rate [Apical ] Pulse Rate [Pulse Oximeter] Respiratory Rate 26 H 27 H 30 H Blood Pressure 173/118 H Blood Pressure [Ri ght Arm] Blood Pressure [Ri ght Upper Arm] Pulse Oximetry 92 Oxygen Delivery Me thod Oxygen Flow Rate 02/12/25 01:23 02/12/25 01:30 02/12/25 01:40 Temperature Pulse Rate 109 H 104 H Pulse Rate [Apical ] Pulse Rate [Pulse Oximeter] Respiratory Rate 26 H 10 L 15 Blood Pressure 170/105 H Blood Pressure [Ri ght Arm] Blood Pressure [Ri ght Upper Arm] Pulse Oximetry 92 88 91 Oxygen Delivery Me thod Oxygen Flow Rate 02/12/25 01:45 02/12/25 01:46 02/12/25 01:50 Temperature Pulse Rate 95 96 Pulse Rate [Apical ] Pulse Rate [Pulse Oximeter] Respiratory Rate 16 19 8 L Blood Pressure 171/108 H Blood Pressure [Ri ght Arm] Blood Pressure [Ri ght Upper Arm] Pulse Oximetry 93 88 95 Oxygen Delivery Me thod Oxygen Flow Rate 02/12/25 01:52 02/12/25 01:53 02/12/25 01:55 Temperature Pulse Rate 98 99 98 Pulse Rate [Apical ] Pulse Rate [Pulse Oximeter] Respiratory Rate 26 H 23 21 Blood Pressure 179/123 H 183/126 H Blood Pressure [Ri ght Arm] Blood Pressure [Ri ght Upper Arm] Pulse Oximetry 97 97 96 Oxygen Delivery Me thod Oxygen Flow Rate 02/12/25 01:56 02/12/25 01:59 02/12/25 02:00 Temperature Pulse Rate 92 94 94 Pulse Rate [Apical ] Pulse Rate [Pulse Oximeter] Respiratory Rate 22 8 L 12 Blood Pressure 155/113 H Blood Pressure [Ri ght Arm] Blood Pressure [Ri ght Upper Arm] Pulse Oximetry 99 83 L 74 L Oxygen Delivery Me thod Oxygen Flow Rate 02/12/25 02:09 02/12/25 02:10 02/12/25 02:11 Temperature Pulse Rate 77 87 Pulse Rate [Apical ] Pulse Rate [Pulse Oximeter] Respiratory Rate 25 H 26 H Blood Pressure 196/120 H Blood Pressure [Ri ght Arm] Blood Pressure [Ri ght Upper Arm] Pulse Oximetry 78 L 95 Oxygen Delivery Me thod Oxygen Flow Rate 02/12/25 02:15 02/12/25 02:16 02/12/25 02:20 Temperature Pulse Rate Pulse Rate [Apical ] Pulse Rate [Pulse Oximeter] Respiratory Rate 14 23 8 L Blood Pressure 162/106 H Blood Pressure [Ri ght Arm] Blood Pressure [Ri ght Upper Arm] Pulse Oximetry 95 Oxygen Delivery Me thod Oxygen Flow Rate 02/12/25 02:48 02/12/25 02:48 02/12/25 03:37 Temperature 101.6 F H Pulse Rate Pulse Rate [Apical ] Pulse Rate [Pulse Oximeter] 81 80 Respiratory Rate 16 16 18 Blood Pressure Blood Pressure [Ri ght Arm] 115/97 H 115/97 H Blood Pressure [Ri ght Upper Arm] Pulse Oximetry 94 94 95 Oxygen Delivery Me thod Room Air Room Air Room Air Oxygen Flow Rate 02/12/25 04:40 02/12/25 04:54 02/12/25 06:00 Temperature 100.4 F H 100.4 F H 100.8 F H Pulse Rate Pulse Rate [Apical ] Pulse Rate [Pulse Oximeter] 78 73 Respiratory Rate 16 16 Blood Pressure Blood Pressure [Ri ght Arm] 151/97 H 162/93 H Blood Pressure [Ri ght Upper Arm] Pulse Oximetry 94 95 Oxygen Delivery Me thod Room Air Room Air Oxygen Flow Rate 02/12/25 07:11 02/12/25 07:23 02/12/25 07:26 Temperature 101.2 F H Pulse Rate 73 Pulse Rate [Apical ] Pulse Rate [Pulse Oximeter] 73 Respiratory Rate 28 H Blood Pressure Blood Pressure [Ri ght Arm] 162/93 H Blood Pressure [Ri ght Upper Arm] Pulse Oximetry 95 95 Oxygen Delivery Me thod Room Air Oxygen Flow Rate 02/12/25 07:26 02/12/25 07:26 02/12/25 07:30 Temperature 101.2 F H 101.2 F H Pulse Rate Pulse Rate [Apical ] Pulse Rate [Pulse Oximeter] 73 73 Respiratory Rate 28 H 28 H 28 H Blood Pressure Blood Pressure [Ri ght Arm] 162/93 H 162/93 H Blood Pressure [Ri ght Upper Arm] Pulse Oximetry 95 95 95 Oxygen Delivery Me thod Room Air Room Air Room Air Oxygen Flow Rate 2 02/12/25 07:31 02/12/25 07:32 02/12/25 09:00 Temperature 101.2 F H 99.7 F H Pulse Rate Pulse Rate [Apical ] Pulse Rate [Pulse Oximeter] 73 83 Respiratory Rate 28 H 24 Blood Pressure Blood Pressure [Ri ght Arm] 179/100 H Blood Pressure [Ri ght Upper Arm] Pulse Oximetry 95 Oxygen Delivery Me thod Room Air Oxygen Flow Rate 2 Labs Labs: Laboratory Results - last 24 hr 02/12/25 02/12/25 02/12/25 00:35 06:32 07:25 WBC 10.19 8.02 RBC 4.06 L 3.30 L Hgb 13.2 L 10.9 L Hct 39.2 32.3 L MCV 97 98 MCH 33 33 MCHC 34 34 RDW Coeff of Briana 13.7 13.8 Plt Count 238 210 Neut % (Auto) 65.4 52.6 Lymph % (Auto) 24.4 33.4 [place] % (Auto) 9.7 13.8 H Eos % (Auto) 0.0 0.0 Baso % (Auto) 0.1 0.1 Neut # (Auto) 6.66 4.21 Lymph # (Auto) 2.49 2.68 [place] # (Auto) 1.00 H 1.10 H Eos # (Auto) 0.00 0.00 Baso # (Auto) 0.01 0.01 Abs Immat Gran (auto) 0.04 0.01 Imm/Tot Granulo (auto) 0.4 0.1 VBG pH 7.438 H VBG pCO2 41 VBG pO2 34.0 VBG HCO3 28 Sodium 126 L 126 L Potassium 3.3 L 3.0 L Chloride 86 L 91 L Carbon Dioxide 27 26 Anion Gap 13 9 BUN 15 13 Creatinine 0.7 0.7 Estimated GFR 102 102 Glucose 119 H 86 Lactate 4.6 H* 3.0 H Calcium 8.7 7.9 L Total Bilirubin 1.5 0.7 Direct Bilirubin 0.7 H AST 49 H 40 H ALT 29 14 Alkaline Phosphatase 73 74 Total Protein 7.9 5.7 L Albumin 4.3 3.2 L Lipase 118 Urine Color Yellow Urine Appearance Clear Urine pH 6.5 Ur Specific [place] 1.025 Urine Protein 3+ A Urine Glucose (UA) Negative Urine Ketones Trace A Urine Blood 2+ A Urine Nitrite Negative Urine Bilirubin Negative Urine Urobilinogen 1.0 Ur Leukocyte Esterase Negative Urine RBC 0-2 Urine WBC 5-10 A Ur Squamous Epith Cells Few Amorphous Sediment Few A Urine Bacteria Few A Ethyl Alcohol < 0.01 SARS-CoV-2 (PCR) Negative SARS-CoV-2 Influenza Type A (PCR) Negative PCR FLU A Influenza Type B (PCR) Negative PCR FLU B RSV (PCR) Negative PCR RSV
[2025-02-12] MEDS: PIPERACILLIN/TAZOBACTAM 3.375 GM in 0.9 % SODIUM CHLORIDE Mini-bag 100 ML IVPB ×3 (10:04→21:49)
[2025-02-12 10:15] LABS: Lactate* 2.6 mmol/L (0.5-1.9)
[2025-02-12 10:25] LABS: INR 0.83 (0.91-1.10); Prothrombin Time 12.1 Seconds
[2025-02-12 10:51] LABS: Chloride* 94 mmol/L (96-114); Sodium* 129 mmol/L (135-149)
[2025-02-12 10:54] LABS: Anion Gap 11 mEq/L (7-15); Blood Urea Nitrogen* 11 mg/dL (7-30); Carbon Dioxide* 24 mmol/L (20-32); Creatinine* 0.8 mg/dL (0.5-1.5); Estimated Glomerular Filt Rate 98 ml/min
[2025-02-12 10:55] LABS: Calcium* 7.9 mg/dL (8.4-10.6); Glucose* 83 mg/dL (60-115)
[2025-02-12 11:02] LABS: Potassium* 2.9 mmol/L (3.6-5.1)
[2025-02-12] MEDS: 0.9 % SODIUM CH + KCL 20 mEq/L 1,000 ML 125 ML IV ×2 (12:09→19:17)
[2025-02-12] MEDS: PHENobarbitaL 130 MG in 0.9 % SODIUM CHLORIDE 100 ml 100 ML 204 MG IVPB (12:17)
[2025-02-12] MEDS: PANTOPRAZOLE SODIUM 40 MG INJ IVP (12:17)
--- NOTE | 2025-02-12 13:57 | W.PC.NUTR.NO ---
Nutrition Progress Note Progress Note Progress Note: Follow-up: Patient with Speech Eval today recommending Regular diet with IDDSI Lvl 4 pureed texture and thin liquids. RDN provided nursing with copies of Room Service Menu for IDDSI lvl 4 pureed diet and thin liquids. Copies of IDDSI Menus are located on Intranet ([facility] Connect), Forms, Culinary Services, Room Service Menus. Please provide patient with appropriate menu if diet order changes. RDN will continue to monitor and will follow-up as able and appropriate.
[2025-02-12 16:34] LABS: Hemoglobin* 10.4 gm/dL (13.5-17.5)
[2025-02-12 16:58] LABS: Chloride* 98 mmol/L (96-114); Potassium* 3.0 mmol/L (3.6-5.1); Sodium* 129 mmol/L (135-149)
[2025-02-12 17:01] LABS: Anion Gap 8 mEq/L (7-15); Blood Urea Nitrogen* 9 mg/dL (7-30); Calcium* 7.2 mg/dL (8.4-10.6); Carbon Dioxide* 23 mmol/L (20-32); Creatinine* 0.8 mg/dL (0.5-1.5); Estimated Glomerular Filt Rate 98 ml/min; Glucose* 83 mg/dL (60-115)
[2025-02-12 17:09] LABS: Lactate* 1.6 mmol/L (0.5-1.9)
--- NOTE | 2025-02-12 18:09 | PC.NURSE ---
end of shift. pt is confused he mumbles at time. he is alert to self. no pain. he is incontinent of B and B. . Pt CIWAs ranged between 3-14 managed with PRN medication given per emar. Pt was turned and repositioned throughout night. he pulls at things at times. he is a 2 assist. he is a feeder IV and SL are patent. he will pull arms in with lab draws and need 2 assist to get labs he does not tolerate turn and repo and pulls at IV and tele leads
[2025-02-13] VITALS (25 sets, daily range): BP systolic 113–199; BP diastolic 71–113; PULSE 43–64; RESP 20–24; TEMP 35.4–36.1; O2SAT 92–100
[2025-02-13] MEDS: PIPERACILLIN/TAZOBACTAM 3.375 GM in 0.9 % SODIUM CHLORIDE Mini-bag 100 ML IVPB ×4 (03:51→22:42)
--- NOTE | 2025-02-13 04:04 | PC.NURSE ---
Pt CIWAs ranged from 4-13. Ramps up w/o Ativan. Starts pulling at tele and gown and skin. Confused and does not know what happened to him and has no idea why he here. Tele Sinus tomas most of the night. Remained on room air all night. Incontinent of both bowel and urine all night. Afebrile. LS very coarse.
[2025-02-13] MEDS: 0.9 % SODIUM CH + KCL 20 mEq/L 1,000 ML 125 ML IV ×3 (05:07→20:57)
[2025-02-13] MEDS: SODIUM CHLORIDE 0.9 % (FLUSH) 10 ML SYRINGE 5 ML IVF ×2 (05:49→23:00)
[2025-02-13 06:51] LABS: Lactate* 1.3 mmol/L (0.5-1.9)
[2025-02-13 06:56] LABS: Hematocrit* 33.0 % (37.0-53.0); Hemoglobin* 10.9 gm/dL (13.5-17.5); Immature Granulocytes Abs Auto 0.04 K/uL (0.00-0.30); Immature Granulocytes Pct Auto 0.5 %; Lymphocytes Absolute Auto 3.00 K/uL (0.90-2.90); Mean Corpuscular HGB Conc 33 gm/dL (32-36); Mean Corpuscular Hemoglobin 33 pg (26-34); Mean Corpuscular Volume 100 fL (80-100); RDW Coefficient of Variation % 13.8 % (11.5-15.5); Red Blood Count* 3.31 m/uL (4.30-5.90); White Blood Count* 8.59 K/uL (4.50-11.00)
[2025-02-13 06:58] LABS: Slide Review Reflex No
[2025-02-13 07:10] LABS: Albumin* 2.6 g/dL (3.3-5.0); Chloride* 104 mmol/L (96-114); Potassium* 3.6 mmol/L (3.6-5.1); Sodium* 133 mmol/L (135-149)
[2025-02-13 07:13] LABS: Alanine Aminotransferase* 12 U/L (4-50); Alkaline Phosphatase* 61 U/L (40-150); Anion Gap 7 mEq/L (7-15); Aspartate Amino Transferase* 55 U/L (12-35); Bilirubin Total* 0.8 mg/dL (0.1-1.5); Blood Urea Nitrogen* 8 mg/dL (7-30); Carbon Dioxide* 22 mmol/L (20-32); Creatinine* 0.8 mg/dL (0.5-1.5); Estimated Glomerular Filt Rate 98 ml/min; Total Protein* 5.0 g/dL (6.0-8.3)
[2025-02-13 07:14] LABS: Calcium* 7.4 mg/dL (8.4-10.6); Glucose* 82 mg/dL (60-115)
[2025-02-13] MEDS: MAGNESIUM IV 2 GM/50 ML PIGGYBACK IVPB (08:09)
[2025-02-13] MEDS: PANTOPRAZOLE SODIUM 40 MG INJ IVP (08:10)
[2025-02-13] MEDS: THIAMINE 500 MG in 0.9 % SODIUM CHLORIDE 100 ml 100 ML 105 MG IVPB ×3 (10:04→20:57)
[2025-02-13] MEDS: METOPROLOL TARTRATE 1 MG/ML inj 5 MG IVP (10:08)
--- NOTE | 2025-02-13 10:26 | RESP.RT ---
Patient seen lying in bed, HOB up slightly. Breathing regular/easy, shallow.BBS diminishes all cox, no wheeze noted, very slight inspiratory/expiratory rale noted.
--- NOTE | 2025-02-13 14:26 | P.IMPN_ITS ---
Assessment and Plan Assessment and plan (1) RML pneumonia: Problem comment: - concern for aspiration, fever 02/12/25 - abx broadened to Zosyn 02/12, Speech therapy consult Status: Acute (2) Confusion: Problem comment: - ddx: acute illness, ETOH withdrawal. - chronic CVA on head CT 02/12 with unclear baseline for cognition Status: Acute (3) At risk for aspiration pneumonia: Problem comment: - given findings on CT and history of alcohol use disorder - on Zosyn - seen by speech therapy on 02/12/25; okay to feed if patient is awake and able to sit up, will require nurse bedside for feeding to monitor symptoms - currently holding oral medications, add back in as tolerated/appropriate Status: Acute (4) Hyponatremia: Problem comment: - presumably 2/2 ETOH use disorder, improving, follow Status: Acute (5) Hypokalemia: Problem comment: - 1.4 today, replace and follow, check Magnesium Status: Acute (6) Anemia: Problem comment: - baseline Hgb 13; 10.9 on 02.12; typically macrocytic but current MCV 98 - ddx: B12/Folate deficiency, nutritional, gastritis - PPI, hemoccult stool ordered, continue to follow Status: Acute (7) Alcohol use disorder: Problem comment: - salvage determiner ETOH overuse with sequela of anemia, elevated INR, elevated AST, hyponatremia Status: Acute (8) Protein-calorie malnutrition, severe: Problem comment: - as evidenced by low BMI, cachectic appearance, chronic ETOH use with sequela noted above - Nutrition consult; nutritional supplement when able Status: Acute (9) Hypertension: Problem comment: - prescriptions for Lisinopril, Chlorthalidone, Amlodipine, and Metoprolol, unclear compliance, has had letters from PCP requesting appt - IV Metoprolol, control withdrawal symptoms, restart other oral medications as tolerated - 02/13 BP elevated, HR in the 40s-50s. Stop IV metoprolol. Still not taking PO well. Will start Enalapril IV for HTN Status: Acute (10) Acute hypoxemic respiratory failure: Problem comment: - due to pneumonia - present on admission - resolved Status: Acute Plan This is a 64-year-old male with a history of alcohol abuse who was found by his son passed out and his home, covered in urine and confused. In the ER he was too weak to ambulate and was reportedly very unsteady. He had reported that his last drink was many days ago and his alcohol level was 0. He also has a history of uncontrolled hypertension and on admission was found to have anemia, confusion, right middle lobe pneumonia, severe protein calorie malnutrition, hyponatremia and acute hypoxemic respiratory failure for which he had supplemental oxygen. It appears he is going through alcohol withdrawal and is responding to treatment with p.r.n. Ativan. He remains on Zosyn for right middle lobe pneumonia, suspected to be aspiration, hyponatremia has improved and respiratory failure has resolved. He remains confused, suspect this is due to alcohol withdrawal, and is as of yet unable to take oral medications. Continue treating as above. Subjective Time Seen by Provider: 07:35 Date Seen: 02/13/25 Interval history: José Luis has been receiving prn ativan overnight for alcohol withdrawal. I have been in to assess him 3 times this morning. He is sleepy and confused today. He did wake up more around 9:30 a.m. and was able to answer some questions. He denies pain. Exam Narrative: Exam Narrative: General: No acute distress. Sleeping, arousable, no agitation today. Remains difficult to understand. Oriented to self and able to tell me his birthday, not oriented to time, year, or place. No pallor. No jaundice. Cachectic. Oropharynx: Clear. Mucous membranes moist. Cardiovascular: Regular rate and rhythm. No murmurs, gallops, or rubs. Respiratory: Poor inspiratory effort. Clear to auscultation bilaterally. No wheezes or crackles. Abdomen: Bowel sounds present. Soft, nondistended, nontender. Extremities: Extremities are cool to the touch. No lower extremity edema. Thin, muscle wasting evident. Const: Vital Signs, click to edit/add: Vital Signs - 24 hr 02/12/25 15:00 02/12/25 15:00 02/12/25 15:00 Temperature 99.0 F Pulse Rate Pulse Rate [Pulse Oximeter] 64 Respiratory Rate 24 24 Blood Pressure [Ri ght Arm] 150/105 H Pulse Oximetry 94 94 94 Oxygen Delivery Me thod Room Air Room Air Oxygen Flow Rate 2 02/12/25 15:00 02/12/25 16:00 02/12/25 16:09 Temperature 98.9 F Pulse Rate Pulse Rate [Pulse Oximeter] 53 L 64 53 L Respiratory Rate 24 24 24 Blood Pressure [Ri ght Arm] 150/105 H 159/89 H Pulse Oximetry 94 94 Oxygen Delivery Me thod Room Air Room Air Oxygen Flow Rate 02/12/25 16:15 02/12/25 17:00 02/12/25 18:03 Temperature Pulse Rate 67 Pulse Rate [Pulse Oximeter] 60 62 Respiratory Rate 24 26 H Blood Pressure [Ri ght Arm] 161/87 H 142/102 H Pulse Oximetry 92 95 Oxygen Delivery Me thod Room Air Room Air Oxygen Flow Rate 02/12/25 19:03 02/12/25 19:06 02/12/25 19:48 Temperature 97.3 F L 97.3 F L 97.3 F L Pulse Rate Pulse Rate [Pulse Oximeter] 72 72 55 L Respiratory Rate 22 22 20 Blood Pressure [Ri ght Arm] 134/104 H 134/104 H 133/69 Pulse Oximetry 98 98 93 Oxygen Delivery Me thod Room Air Room Air Room Air Oxygen Flow Rate 2 0 02/12/25 19:57 02/12/25 20:46 02/12/25 21:52 Temperature 96.9 F L 96.9 F L Pulse Rate 67 Pulse Rate [Pulse Oximeter] 54 L 58 L Respiratory Rate 20 20 Blood Pressure [Ri ght Arm] 159/82 H 147/85 H Pulse Oximetry 94 92 Oxygen Delivery Me thod Room Air Room Air Oxygen Flow Rate 0 0 02/12/25 22:09 02/12/25 22:10 02/12/25 22:10 Temperature Pulse Rate Pulse Rate [Pulse Oximeter] 58 L Respiratory Rate 20 20 Blood Pressure [Ri ght Arm] Pulse Oximetry 92 92 Oxygen Delivery Me thod Room Air Oxygen Flow Rate 0 02/12/25 22:50 02/12/25 22:51 02/13/25 00:01 Temperature 96.9 F L 96.9 F L 96.9 F L Pulse Rate Pulse Rate [Pulse Oximeter] 50 L 50 L 60 Respiratory Rate 20 20 20 Blood Pressure [Ri ght Arm] 140/81 H 140/81 H 163/99 H Pulse Oximetry 97 97 97 Oxygen Delivery Me thod Room Air Room Air Room Air Oxygen Flow Rate 0 0 0 02/13/25 00:20 02/13/25 01:03 02/13/25 01:45 Temperature 96.9 F L Pulse Rate Pulse Rate [Pulse Oximeter] 60 45 L 45 L Respiratory Rate 20 20 20 Blood Pressure [Ri ght Arm] 163/99 H 162/82 H 164/81 H Pulse Oximetry 97 95 99 Oxygen Delivery Me thod Room Air Room Air Room Air Oxygen Flow Rate 0 0 0 02/13/25 03:00 02/13/25 03:00 02/13/25 03:21 Temperature 96.6 F L 96.6 F L 96.6 F L Pulse Rate Pulse Rate [Pulse Oximeter] 54 L 54 L 54 L Respiratory Rate 20 20 20 Blood Pressure [Ri ght Arm] 158/94 H 158/94 H 158/94 H Pulse Oximetry 97 97 97 Oxygen Delivery Me thod Room Air Room Air Room Air Oxygen Flow Rate 0 0 02/13/25 03:53 02/13/25 05:01 02/13/25 05:50 Temperature 96.6 F L Pulse Rate Pulse Rate [Pulse Oximeter] 47 L 52 L 48 L Respiratory Rate 20 20 20 Blood Pressure [Ri ght Arm] 165/84 H 150/91 H 176/103 H Pulse Oximetry 93 92 94 Oxygen Delivery Me thod Room Air Room Air Room Air Oxygen Flow Rate 0 0 0 02/13/25 06:53 02/13/25 07:15 02/13/25 07:15 Temperature 96.2 F L Pulse Rate 44 L Pulse Rate [Pulse Oximeter] 43 L Respiratory Rate 24 Blood Pressure [Ri ght Arm] 154/85 H Pulse Oximetry 97 94 Oxygen Delivery Me thod Room Air Oxygen Flow Rate 0 02/13/25 07:15 02/13/25 07:15 02/13/25 08:16 Temperature Pulse Rate Pulse Rate [Pulse Oximeter] 43 L 64 Respiratory Rate 24 24 24 Blood Pressure [Ri ght Arm] 159/99 H Pulse Oximetry 94 95 Oxygen Delivery Me thod Room Air Room Air Oxygen Flow Rate 0 0 02/13/25 09:10 02/13/25 10:00 02/13/25 10:25 Temperature Pulse Rate Pulse Rate [Pulse Oximeter] 63 49 L Respiratory Rate 24 24 24 Blood Pressure [Ri ght Arm] 151/89 H 187/96 H Pulse Oximetry 93 95 93 Oxygen Delivery Me thod Room Air Room Air Room Air Oxygen Flow Rate 0 0 02/13/25 11:10 02/13/25 12:00 02/13/25 13:10 Temperature 96.9 F L Pulse Rate Pulse Rate [Pulse Oximeter] 53 L 50 L 46 L Respiratory Rate 24 24 24 Blood Pressure [Ri ght Arm] 155/91 H 113/71 136/79 Pulse Oximetry 100 100 100 Oxygen Delivery Me thod Room Air Room Air Room Air Oxygen Flow Rate 0 0 0 02/13/25 14:05 Temperature Pulse Rate Pulse Rate [Pulse Oximeter] 45 L Respiratory Rate 22 Blood Pressure [Ri ght Arm] 154/91 H Pulse Oximetry 96 Oxygen Delivery Me thod Room Air Oxygen Flow Rate 0 Labs Labs: Laboratory Results - last 24 hr 02/12/25 02/12/25 02/13/25 16:27 16:40 06:36 WBC 8.59 RBC 3.31 L Hgb 10.4 L 10.9 L Hct 33.0 L MCV 100 MCH 33 MCHC 33 RDW Coeff of Briana 13.8 Plt Count 188 Neut % (Auto) 54.4 Lymph % (Auto) 34.9 Sharkey % (Auto) 9.1 Eos % (Auto) 0.6 Baso % (Auto) 0.5 Neut # (Auto) 4.68 Lymph # (Auto) 3.00 H Sharkey # (Auto) 0.80 Eos # (Auto) 0.05 Baso # (Auto) 0.04 Abs Immat Gran (auto) 0.04 Imm/Tot Granulo (auto) 0.5 Sodium 129 L 133 L Potassium 3.0 L 3.6 Chloride 98 104 Carbon Dioxide 23 22 Anion Gap 8 7 BUN 9 8 Creatinine 0.8 0.8 Estimated GFR 98 98 Glucose 83 82 Lactate 1.6 1.3 Calcium 7.2 L 7.4 L Magnesium 1.4 L 1.4 L Total Bilirubin 0.8 AST 55 H ALT 12 Alkaline Phosphatase 61 Total Protein 5.0 L Albumin 2.6 L 02/13/25 12:25 WBC RBC Hgb Hct MCV MCH MCHC RDW Coeff of Briana Plt Count Neut % (Auto) Lymph % (Auto) Sharkey % (Auto) Eos % (Auto) Baso % (Auto) Neut # (Auto) Lymph # (Auto) Sharkey # (Auto) Eos # (Auto) Baso # (Auto) Abs Immat Gran (auto) Imm/Tot Granulo (auto) Sodium Potassium Chloride Carbon Dioxide Anion Gap BUN Creatinine Estimated GFR Glucose Lactate Calcium Magnesium 2.2 Total Bilirubin AST ALT Alkaline Phosphatase Total Protein Albumin
--- NOTE | 2025-02-13 18:03 | PC.NURSE ---
end of shift. pt is STILL confused but he is more awake and alert and talkative. he is alert to self. some back pain. pt was not able to rate pain. he said it was better in the chair.. he is incontinent of B and B. brief is on. . Pt CIWAs ranged between 0-5 no ativan was needed. he has been up in the chair 3 times today. for meals.. Pt was turned and repositioned. LS are improved with movement. IV went bad and was replaced. he is a 2 assist. he is a feeder IV, patent. he will pull arms in with lab draws and need 2 assist to get labs he is better today, more clear and we can have a conservation. he is eating (feeder) better. son was here visiting.
[2025-02-14] VITALS (17 sets, daily range): BP systolic 133–198; BP diastolic 82–112; PULSE 51–116; RESP 16–22; TEMP 35.4–36.6; O2SAT 94–100
--- NOTE | 2025-02-14 03:20 | PC.NURSE ---
[employer] called to update Jack ALVARADO at this time regarding continued elevated B/Ps and bradycardia. Pt is asymptomatic at this time. Message left with [facility].
[2025-02-14] MEDS: HYDRALAZINE HCL 20 MG/ML inj 5 MG IVP (03:47)
[2025-02-14] MEDS: PIPERACILLIN/TAZOBACTAM 3.375 GM in 0.9 % SODIUM CHLORIDE Mini-bag 100 ML IVPB ×4 (03:49→21:26)
--- NOTE | 2025-02-14 05:08 | PC.NURSE ---
Shift Note: Pt having ongoing HTN, systolic BP's 190's. Hospitalist updated and order obtained for hydralazine. Fluids dc'd. SpO2 90's throughout the night. Encouraging TCDB. T&R Q2h. Mepilex applied to coccyx over bony prominence. No redness or breakdown noted. CIWAS unremarkable. Pt able to state name and place. 2 assist to BSC. Intermittently incontinent with several large heavy wet briefs overnight. Drank 1/2 an ensure overnight.
[2025-02-14 06:04] LABS: Hematocrit* 36.0 % (37.0-53.0); Hemoglobin* 12.1 gm/dL (13.5-17.5); Immature Granulocytes Abs Auto 0.05 K/uL (0.00-0.30); Immature Granulocytes Pct Auto 0.6 %; Lymphocytes Absolute Auto 1.91 K/uL (0.90-2.90); Mean Corpuscular HGB Conc 34 gm/dL (32-36); Mean Corpuscular Hemoglobin 33 pg (26-34); Mean Corpuscular Volume 98 fL (80-100); RDW Coefficient of Variation % 13.7 % (11.5-15.5); Red Blood Count* 3.66 m/uL (4.30-5.90); White Blood Count* 8.51 K/uL (4.50-11.00)
[2025-02-14 06:13] LABS: Albumin* 3.0 g/dL (3.3-5.0); Chloride* 107 mmol/L (96-114); Potassium* 3.4 mmol/L (3.6-5.1); Slide Review Reflex No; Sodium* 134 mmol/L (135-149)
[2025-02-14 06:16] LABS: Alanine Aminotransferase* 15 U/L (4-50); Alkaline Phosphatase* 82 U/L (40-150); Anion Gap 7 mEq/L (7-15); Aspartate Amino Transferase* 53 U/L (12-35); Bilirubin Total* 0.6 mg/dL (0.1-1.5); Blood Urea Nitrogen* 6 mg/dL (7-30); Calcium* 8.0 mg/dL (8.4-10.6); Carbon Dioxide* 20 mmol/L (20-32); Creatinine* 0.7 mg/dL (0.5-1.5); Est. Creatinine Clearance* 46.51; Estimated Glomerular Filt Rate 102 ml/min; Glucose* 93 mg/dL (60-115); Total Protein* 5.6 g/dL (6.0-8.3)
--- NOTE | 2025-02-14 07:42 | PM.IMPN1 ---
Assessment and Plan Assessment and plan (1) RML pneumonia: Problem comment: - concern for aspiration, fever 02/12/25 - abx broadened to Zosyn 02/12, Speech therapy consult - improving. Speech therapy saw 02/12 Status: Acute (2) Confusion: Problem comment: - ddx: acute illness, ETOH withdrawal. - chronic CVA on head CT 02/12 with unclear baseline for cognition - improving, but not completely resolved. Suspect some underlying chronic confusion, likely due to chronic alcohol use. Status: Acute (3) At risk for aspiration pneumonia: Problem comment: - given findings on CT and history of alcohol use disorder - on Zosyn - seen by speech therapy on 02/12/25; okay to feed if patient is awake and able to sit up, will require nurse bedside for feeding to monitor symptoms - 02/14 restarted home medications orally Status: Acute (4) Hyponatremia: Problem comment: - presumably 2/2 ETOH use disorder, improving, follow - 02/14 improved from admission, now 134 Status: Acute (5) Hypokalemia: Problem comment: - Continue to replace orally as needed, may need to add daily supplementation Status: Acute (6) Hypomagnesemia: Problem comment: - 02/13 Mg 1.4 today, replace and follow, check Magnesium - 02/14 Mg was 2.2 on recheck yesterday. Resolved. Status: Acute (7) Anemia: Problem comment: - baseline Hgb 13; 10.9 on .; typically macrocytic but current MCV 98 - ddx: B12/Folate deficiency, nutritional, gastritis - PPI, hemoccult stool ordered, continue to follow Status: Acute (8) Alcohol use disorder: Problem comment: - retirement ETOH overuse with sequela of anemia, elevated INR, elevated AST, hyponatremia Status: Acute (9) Protein-calorie malnutrition, severe: Problem comment: - as evidenced by low BMI, cachectic appearance, chronic ETOH use with sequela noted above - Nutrition consult; start nutritional supplement Status: Acute (10) Hypertension: Problem comment: - prescriptions for Lisinopril, Chlorthalidone, Amlodipine, and Metoprolol, unclear compliance, has had letters from PCP requesting appt - IV Metoprolol, control withdrawal symptoms, restart other oral medications as tolerated - 02/13 BP elevated, HR in the 40s-50s. Stop IV metoprolol. Still not taking PO well. Will start Enalapril IV for HTN - 02/14 able to take po today. Stop IV hydralazine and enalapril. Start home amlodipine, HCTZ, lisinopril. Restart lower dose metoprolol (HR now 80s to 100s). Status: Acute (11) Acute hypoxemic respiratory failure: Problem comment: - due to pneumonia - present on admission - resolved Status: Resolved Plan This is a 64-year-old male with a history of alcohol abuse who was found by his son passed out and his home, covered in urine and confused. In the ER he was too weak to ambulate and was reportedly very unsteady. He had reported that his last drink was many days ago and his alcohol level was 0. He also has a history of uncontrolled hypertension and on admission was found to have anemia, confusion, right middle lobe pneumonia, severe protein calorie malnutrition, hyponatremia and acute hypoxemic respiratory failure for which he had supplemental oxygen. It appears he is going through alcohol withdrawal and is responding to treatment with p.r.n. Ativan. He remains on Zosyn for right middle lobe pneumonia, suspected to be aspiration, hyponatremia has improved and respiratory failure has resolved. He remains confused, suspect this is due to alcohol withdrawal, and is as of yet unable to take oral medications. Overall improving. Will likely need rehab at discharge. Anticipate d/c in 1-2 days. Total Time Spent Total Time Spent: Today I spent 70 minutes seeing the patient several times today, discussing with the patient's son, reviewing [facility] and [facility] notes/diagnostics/labs, discussing the care plan with our care team that includes social work, PT/OT, pharmacy, RT, [place] [facility] and documenting my impressions and plan in the medical record. Subjective Time Seen by Provider: 07:25 Date Seen: 02/14/25 Interval history: José Luis c/o nausea, no emesis. He asked me why he was in the hospital and what's going on with him. We discussed pneumonia, alcohol use, alcohol withdrawal, renal failure, and electrolyte abnormalities. He noted that he had a close friend recently of chronic alcoholism. He doesn't want that to happen to him. He says he's tried both inpatient and outpatient treatment programs, and they were a joke. I asked him if he thought it would work better now that he's more serious about quitting, and he said, probably. I told him I'd ask our 7th grade social studies teacher to drop by tomorrow and give him some treatment options. He said it was okay for me to call his son today to give him an update. Staff notified me that José Luis's chair alarm went off and the staff immediately went into the room, but he was on the floor between the chair and the window. I went in and evaluated him immediately. He denied pain. He stated he hit the left side of his head, but again, denies pain. He denies loss of conciousness. I called his son, Carlos, and let him know. Carlos told me he was on his way in anyway and would be here soon. I went back in and spoke with Carlos and José Luis. Carlos told me that he has been caring for his dad at home, but he knows that he can not provide 24/7 care and he thinks that his dad should be in rehab for a while and may be even in long-term care after that. Carlos told me that he is going to pursue guardianship and would like to talk with our 7th grade social studies teacher about it tomorrow. Exam Narrative: Exam Narrative: General: No acute distress. Awake, alert, oriented to self, place and situation. No pallor. No jaundice. Cachectic. Oropharynx: Clear. Mucous membranes moist. Cardiovascular: Regular rate and rhythm. No murmurs, gallops, or rubs. Respiratory: Crackles and rhales throughout. No wheezes. Abdomen: Bowel sounds present. Soft, nondistended, nontender. Extremities: No lower extremity edema. Thin, muscle wasting evident. Const: Vital Signs, click to edit/add: Vital Signs - 24 hr 02/13/25 08:16 02/13/25 09:10 02/13/25 10:00 Temperature Pulse Rate Pulse Rate [Pulse Oximeter] 64 63 49 L Respiratory Rate 24 24 24 Blood Pressure [Ri ght Arm] 159/99 H 151/89 H 187/96 H Pulse Oximetry 95 93 95 Oxygen Delivery Me thod Room Air Room Air Room Air Oxygen Flow Rate 0 0 0 02/13/25 10:25 02/13/25 11:10 02/13/25 12:00 Temperature 96.9 F L Pulse Rate Pulse Rate [Pulse Oximeter] 53 L 50 L Respiratory Rate 24 24 24 Blood Pressure [Ri ght Arm] 155/91 H 113/71 Pulse Oximetry 93 100 100 Oxygen Delivery Me thod Room Air Room Air Room Air Oxygen Flow Rate 0 0 02/13/25 13:10 02/13/25 14:05 02/13/25 14:35 Temperature Pulse Rate Pulse Rate [Pulse Oximeter] 46 L 45 L Respiratory Rate 24 22 Blood Pressure [Ri ght Arm] 136/79 154/91 H Pulse Oximetry 100 96 94 Oxygen Delivery Me thod Room Air Room Air Oxygen Flow Rate 0 0 02/13/25 14:35 02/13/25 14:42 02/13/25 15:50 Temperature 96.8 F L Pulse Rate 51 L Pulse Rate [Pulse Oximeter] 60 Respiratory Rate 22 20 Blood Pressure [Ri ght Arm] 162/113 H Pulse Oximetry 96 96 Oxygen Delivery Me thod Room Air Room Air Oxygen Flow Rate 0 0 02/13/25 15:50 02/13/25 16:13 02/13/25 19:00 Temperature 96.8 F L 96 F L Pulse Rate Pulse Rate [Pulse Oximeter] 60 60 51 L Respiratory Rate 22 22 22 Blood Pressure [Ri ght Arm] 162/113 H 181/101 H Pulse Oximetry 96 96 Oxygen Delivery Me thod Room Air Room Air Oxygen Flow Rate 0 0 02/13/25 23:00 02/13/25 23:00 02/13/25 23:00 Temperature 95.8 F L Pulse Rate Pulse Rate [Pulse Oximeter] 50 L 50 L Respiratory Rate 22 22 Blood Pressure [Ri ght Arm] 199/107 H Pulse Oximetry 94 94 Oxygen Delivery Me thod Room Air Oxygen Flow Rate 0 02/13/25 23:00 02/13/25 23:00 02/14/25 00:00 Temperature 95.8 F L Pulse Rate 51 L Pulse Rate [Pulse Oximeter] 50 L Respiratory Rate 22 22 Blood Pressure [Ri ght Arm] 199/107 H Pulse Oximetry 94 94 Oxygen Delivery Me thod Room Air Room Air Oxygen Flow Rate 02/14/25 03:00 02/14/25 05:03 Temperature 95.8 F L Pulse Rate Pulse Rate [Pulse Oximeter] 55 L 64 Respiratory Rate 22 Blood Pressure [Ri ght Arm] 197/110 H 189/102 H Pulse Oximetry 97 96 Oxygen Delivery Me thod Room Air Oxygen Flow Rate Labs Labs: Laboratory Results - last 24 hr 02/13/25 02/13/25 02/14/25 06:36 12:25 05:36 WBC 8.51 RBC 3.66 L Hgb 12.1 L Hct 36.0 L MCV 98 MCH 33 MCHC 34 RDW Coeff of Briana 13.7 Plt Count 208 Neut % (Auto) 66.9 Lymph % (Auto) 22.4 Kay % (Auto) 8.3 Eos % (Auto) 1.2 Baso % (Auto) 0.6 Neut # (Auto) 5.69 Lymph # (Auto) 1.91 Kay # (Auto) 0.70 Eos # (Auto) 0.10 Baso # (Auto) 0.05 Abs Immat Gran (auto) 0.05 Imm/Tot Granulo (auto) 0.6 Sodium 134 L Potassium 3.4 L Chloride 107 Carbon Dioxide 20 Anion Gap 7 BUN 6 L Creatinine 0.7 Estimated Creat Clear 46.51 Estimated GFR 102 Glucose 93 Lactate 1.3 Calcium 8.0 L Magnesium 2.2 Total Bilirubin 0.6 AST 53 H ALT 15 Alkaline Phosphatase 82 Total Protein 5.6 L Albumin 3.0 L
--- NOTE | 2025-02-14 08:13 | CRLHL7_ITS ---
For Patients: As a result of the Century Cures Act, medical imaging exams and procedure reports are released immediately into your electronic medical record. You may view this report before your referring provider. If you have questions, please contact your health care provider. INDICATION: Pulmonary crackles. TECHNIQUE: Chest 1 views. COMPARISON: 02/12/2025. FINDINGS: The focal airspace opacities within right mid lung grossly unchanged and better evaluated on CT on 02/12/2025. No new airspace opacities or consolidation. No significant pleural effusion. No pneumothorax is seen. Heart size and mediastinal contours are stable. IMPRESSION: 1. Grossly stable focal airspace opacities within the right mid lung, better evaluated on chest CT dated 02/12/2025. Please refer to that report. Dictated by Pranav Enciso MD @ 02/14/2025 9:57:29 AM (Electronically Signed)
[2025-02-14] MEDS: THIAMINE 500 MG in 0.9 % SODIUM CHLORIDE 100 ml 100 ML 105 MG IVPB (08:44)
[2025-02-14] MEDS: POTASSIUM BICARB 25 MEQ EFFERVESCENT TAB PO ×2 (08:45→10:39)
[2025-02-14] MEDS: FUROSEMIDE 10 MG/ML inj 40 MG IVP (08:45)
[2025-02-14] MEDS: AMLODIPINE 10 MG TABLET PO (08:46)
[2025-02-14] MEDS: FOLIC ACID 1 MG TABLET PO (08:46)
[2025-02-14] MEDS: CHLORTHALIDONE 25 MG TABLET 12.5 MG PO (08:46)
[2025-02-14] MEDS: SODIUM CHLORIDE 0.9 % (FLUSH) 10 ML SYRINGE 5 ML IVF ×2 (08:47→20:12)
[2025-02-14] MEDS: PANTOPRAZOLE SODIUM 40 MG INJ IVP (08:47)
--- NOTE | 2025-02-14 13:23 | CRLHL7_ITS ---
For Patients: As a result of the Century Cures Act, medical imaging exams and procedure reports are released immediately into your electronic medical record. You may view this report before your referring provider. If you have questions, please contact your health care provider. INDICATION: Unwitnessed fall. Altered mental status. Hit left side of head. TECHNIQUE: Axial noncontrast CT cuts were performed from the skull base to the vertex. COMPARISON: 02/26/2021. FINDINGS: There is advanced cerebral volume for a patient of this relatively young age. There are chronic bilateral thalamic lacunar infarcts. There is no intracranial mass, hemorrhage cortical infarction or contusion. There is no midline shift or transtentorial herniation. The calvarium is intact. There is mild mucosal thickening within the ethmoid sinuses and maxillary sinuses bilaterally. The orbits appear normal. IMPRESSION: 1. Advanced cerebral volume loss for a patient of this relatively young age. 2. Chronic bilateral thalamic lacunar infarcts. 3. No acute intracranial abnormality. Please note that all CT scans at this facility use dose modulation, iterative reconstruction, and/or weight-based dosing when appropriate to reduce radiation dose to as low as reasonably achievable. Dictated by Scot Jamil MD @ 02/14/2025 2:05:20 PM (Electronically Signed)
--- NOTE | 2025-02-14 13:23 | CRLHL7_ITS ---
For Patients: As a result of the Century Cures Act, medical imaging exams and procedure reports are released immediately into your electronic medical record. You may view this report before your referring provider. If you have questions, please contact your health care provider. INDICATION: Unwitnessed fall. Hit head left side. TECHNIQUE: Axial CT cuts were performed from the skull base to the upper thoracic spine. The images were formatted and reviewed in the sagittal, axial and coronal planes. The craniocervical and cervicothoracic junctions are normally aligned. There is narrowing of the C5-6 and C6-7 intervertebral disc spaces with small anterior and posterior marginal osteophytes. There is multilevel degenerative facet throughout. C2-3, there is no disc herniation, central spinal stenosis or foraminal stenosis. At C3-4, there is no disc herniation, central spinal stenosis or foraminal stenosis. C4-5, there is no disc herniation, central spinal stenosis or foraminal stenosis. At C5-6, there is mild posterior osteophytic spurring causing a mild reduction in the AP diameter of the central spinal canal. There is prominent bilateral Luschka joint spurring worse on the right side causing severe bilateral foraminal narrowing worse on the right. At C6-7, there is bilateral Luschka joint spurring causing severe bilateral foraminal narrowing worse on the right side. There is a mild reduction in the AP diameter of the central spinal canal. C7-T1, there is no disc herniation or central canal stenosis. There is moderate bilateral foraminal narrowing worse on the right side. There is extensive atherosclerotic calcification of both carotid bifurcations IMPRESSION: 1. Negative for fracture or dislocation. 2. Degenerative changes as described above. 3. Extensive atherosclerotic calcification within both carotid bifurcations Please note that all CT scans at this facility use dose modulation, iterative reconstruction, and/or weight-based dosing when appropriate to reduce radiation dose to as low as reasonably achievable. Dictated by Scot Jamil MD @ 02/14/2025 2:11:57 PM (Electronically Signed)
--- NOTE | 2025-02-14 15:07 | RESP.RT ---
Pt unable to grasp the concept with the aerobika at this time. BBS very coarese Rhonchi and Rales. Asking pt to cough and deep breathe. Somewhat successful Cough not productive.
[2025-02-14] MEDS: METOPROLOL TARTRATE 25 MG TABLET 12.5 MG PO ×2 (15:16→20:09)
--- NOTE | 2025-02-14 18:20 | PC.NURSE ---
Chair alarm went off and this nurse responded immediately. Patient was found down on the ground next to the recliner. Patient was assisted back to chair with assist of 3. Vital signs taken and MD notified. When patient was asked if he hit his head he responded kind of. Imaging obtained per the doctors orders. Fall precautions in place. Yellow gripper socks on.
--- NOTE | 2025-02-14 18:49 | PC.NURSE ---
Patient oriented to self only. Asking where am I and what happened to me. Incontinent of bowel and bladder. Moving with assist of 2. Up in the chair for meal. Walked 50 feet in the rivera. Supplements offered throughout the day. Drank full ensure for dinner. Son Carlos here for visit today. Expressed interest in talking to foster care social worker. E-mail sent to Veronica to follow up.
[2025-02-14 19:08] LABS: Fecal Occult Blood* Negative (Negative)
[2025-02-14] MEDS: ATORVASTATIN CALCIUM 10 MG TABLET 20 MG PO (20:09)
[2025-02-15] VITALS (12 sets, daily range): BP systolic 116–194; BP diastolic 76–104; PULSE 69–85; RESP 16–18; TEMP 36.1–36.5; O2SAT 94–98; BMI 14.7
[2025-02-15] MEDS: PIPERACILLIN/TAZOBACTAM 3.375 GM in 0.9 % SODIUM CHLORIDE Mini-bag 100 ML IVPB ×3 (03:22→17:03)
[2025-02-15] MEDS: OMEPRAZOLE 20 MG CAPSULE DR PO (06:10)
--- NOTE | 2025-02-15 06:17 | PC.NURSE ---
Pt is still very confused. A2 and slow to move. Given Shower last night. CIWA 3-4. LS coarse. No cough overnight. Afebrile. Incontinent both BM and urine. BM was soft this am.
[2025-02-15 06:31] LABS: Hematocrit* 37.4 % (37.0-53.0); Hemoglobin* 12.8 gm/dL (13.5-17.5); Immature Granulocytes Abs Auto 0.06 K/uL (0.00-0.30); Immature Granulocytes Pct Auto 0.6 %; Lymphocytes Absolute Auto 2.95 K/uL (0.90-2.90); Mean Corpuscular HGB Conc 34 gm/dL (32-36); Mean Corpuscular Hemoglobin 33 pg (26-34); Mean Corpuscular Volume 96 fL (80-100); RDW Coefficient of Variation % 13.5 % (11.5-15.5); Red Blood Count* 3.90 m/uL (4.30-5.90); White Blood Count* 9.32 K/uL (4.50-11.00)
[2025-02-15 06:36] LABS: Chloride* 93 mmol/L (96-114); Potassium* 3.0 mmol/L (3.6-5.1); Sodium* 132 mmol/L (135-149)
[2025-02-15 06:38] LABS: Slide Review Reflex No
[2025-02-15 06:39] LABS: Anion Gap 14 mEq/L (7-15); Blood Urea Nitrogen* 9 mg/dL (7-30); Carbon Dioxide* 25 mmol/L (20-32); Cholesterol* 192 mg/dL (90-199); Creatinine* 0.8 mg/dL (0.5-1.5); Est. Creatinine Clearance* 40.63; Estimated Glomerular Filt Rate 98 ml/min; Triglycerides* 158 mg/dL (40-149)
[2025-02-15 06:40] LABS: Calcium* 8.5 mg/dL (8.4-10.6); Glucose* 79 mg/dL (60-115); HDL Cholesterol* 44 mg/dL (>=40)
--- NOTE | 2025-02-15 08:27 | P.NUTASMT_ITS ---
Hospital Nutrition Assessment Patient Data Patient Gender: Male Patient Age: 64 Height: 162.56 cm (5ft 4in) Weight: 39.009 kg (86 lbs) Body Mass Index: 14.7 Weight Calculations [place] Body Weight (lbs): 130.00 [place] Body Weight (kg): 58.97 Percent of [place] Body Weight: 66 Adjusted Body Weight (lbs): 119.00 Adjusted Body Weight (kg): 53.98 Basal Energy Expenditure (BEE): 975.79 Basal Energy Expenditure (BEE) Adjusted Weight: 1181.64 Activity/Stress Factors Injury Factor/Activity Factor Value: 1.3 Total Energy Requirements Kcal requirements (current wt): 1268.527 Kcal requirements (adj wt): 1536.132 Protein Need (current wt): 1.2 Total Protein (current wt): 46.811 Protein Need (adj wt): 1.2 Total Protein (adj wt): 64.776 Fluid Need (current wt): 30 Total Fluid (current wt): 1170.270 Fluid Need (adj wt): 30 Total Fluid (adj wt): 1619.40 Nutrition Assessment Diet Order: Regular Food Modified for Dysphagia: 4-Pureed (Ordered 02/12 @ 14:00) Liquid Modified for Dysphagia: 0-Thin Diet Order Comment: Diet order advanced to Regular w/out texture modifications 02/15 @ lunch Allergies: NKFA Appetite Prior to Admission: Poor (EtOH withdrawal - intakes slow improving) Appetite and Intake: Intakes 02/14: 25%-0-75% Supplement and/or Snacks: Ensure Enlive ordered 02/14; 25% z1 02/14 Hx Appetite Changes: Yes (currently EtOH withdrawal) Hx Weight Loss: Yes Hx Weight Gain: No Nausea: No Vomiting: No Diarrhea: No Hx Constipation: No Chewing Difficulty: Yes (Patient is missing most teeth per Speech Therapy notes) Swallowing Difficulty: Yes (At risk for aspiration at this time with current cognitive status) Diagnosis/Symptom or Procedure: Altered Mental Status, EtOH withdrawal Clinical History: Active Problems Hypomagnesemia (Acute) E83.42 Acute hypoxemic respiratory failure (Resolved) J96.01 At risk for aspiration pneumonia (Acute) Z91.89 Protein-calorie malnutrition, severe (Acute) E43 Alcohol use disorder (Acute) F10.90 Anemia (Acute) D64.9 Confusion (Acute) R41.0 Chronic alcoholism (Acute) F10.20 Uncontrolled hypertension (Acute) I10 RML pneumonia (Acute) J18.9 Hypokalemia (Acute) E87.6 Hyponatremia (Acute) E87.1 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 Son checks on him multiples times daily. Medications Medications: reviewed. Lab Results Lab Results: reviewed. Education Topic Comment: Diet education provided August 2023 related to sobriety and general healthy diet. Handouts provided at that time to support discussion. Assessment/Plan PES Statement: 1. Inadequate oral intakes related to confusion, altered mental status in setting of alcohol withdrawal as evidenced by intakes averaging 25% since admit 02/12. 2. Underweight BMI related to low oral intake and EtOH abuse as evidenced by BMI of 14.8 kg/m2. Nutritional Assessment Summary: RDN with follow-up with MD consult. Patient's intakes continue to be minimal since admit due to confusion, AMS in setting of alcohol withdrawal. Weight has decreased to 39 kg - loss of 3.63 kg (8 lbs) since admit. Current diet is Regular with IDDSI Lvl 4 pureed texture and thin liquids. Intakes have increased slightly since admit, but still averaging about 25% which is inadequate. Ensure Enlive ordered 02/14 TID. This provides 1050 kcals and 60 grams protein to help meet estimated energy needs. Of note, patient's diet orders was advanced to Regular without texture modifications for lunch 02/15 per Speech Therapy recommendations. Discharge Plan-Living Situation: TBD Per MD report, son is interested in guardianship and rehab placement once patient is medically stable. Plan/Recommendation: Diet order per MD order. Regular with IDDSI Lvl 4 pureed texture and thin liquids. Speech Therapist is monitoring. Continue to offer Enlive TID. RDN will continue to monitor and follow-up prn. Malnutrition Assessment Current Energy Intake: Unable To Determine Weight Changes: None (Limited weight history. Loss of 4lbs in 1.5 years - not significant. ) Recommended Malnutrition Diagnosis: Further Physical Evaluation Required By MD To Determine
--- NOTE | 2025-02-15 08:28 | P.IMPN_ITS ---
Assessment and Plan Assessment and plan (1) RML pneumonia: Problem comment: - concern for aspiration, fever 02/12/25 - abx broadened to Zosyn 02/12, Speech therapy consult - improving. Speech therapy saw 02/12 and again 02/15 - transition to oral antibiotics on discharge, total course, 7 days Status: Acute (2) Confusion: Problem comment: - ddx: acute illness, ETOH withdrawal. - chronic CVA on head CT 02/12 with unclear baseline for cognition - improving, likely close to baseline today, obtain MOCA before discharge (was summer) Status: Acute (3) At risk for aspiration pneumonia: Problem comment: - given findings on CT and history of alcohol use disorder - on Zosyn - seen by speech therapy on 02/12/25; okay to feed if patient is awake and able to sit up, will require nurse bedside for feeding to monitor symptoms - 02/14 restarted home medications orally - 02/15 appreciate speech consult. Suspect aspiration was from intoxication Status: Acute (4) Hyponatremia: Problem comment: - presumably 2/2 ETOH use disorder, improving, follow - 02/15 improved from admission, now 132, stable, likely was acute on chronic Status: Acute (5) Hypokalemia: Problem comment: - Start daily supplementation. Continue to replace orally as needed as well. Status: Acute (6) Hypomagnesemia: Problem comment: - 12/6 Mg 1.4 today, replace and follow, check Magnesium - 12/7 Mg was 2.2 on recheck yesterday. Resolved. Status: Acute (7) Anemia: Problem comment: - baseline Hgb 13; 10.9 on .; typically macrocytic but current MCV 98 - ddx: B12/Folate deficiency, nutritional, gastritis - PPI, hemoccult stool ordered, continue to follow Status: Acute (8) Alcohol use disorder: Problem comment: - supervisor intermediates ETOH overuse with sequela of anemia, elevated INR, elevated AST, hyponatremia Status: Acute (9) Protein-calorie malnutrition, severe: Problem comment: - as evidenced by low BMI, cachectic appearance, chronic ETOH use with sequela noted above - Nutrition consult; start nutritional supplement Status: Acute (10) Hypertension: Problem comment: - prescriptions for Lisinopril, Chlorthalidone, Amlodipine, and Metoprolol, unclear compliance, has had letters from PCP requesting appt - IV Metoprolol, control withdrawal symptoms, restart other oral medications as tolerated - 02/13 BP elevated, HR in the 40s-50s. Stop IV metoprolol. Still not taking PO well. Will start Enalapril IV for HTN - 02/14 able to take po today. Stop IV hydralazine and enalapril. Start home amlodipine, HCTZ, lisinopril. Restart lower dose metoprolol (HR now 80s to 100s). - 02/15 BP improving. Continue amlodipine, lisinopril, HCTZ, and metoprolol. Status: Acute (11) Acute hypoxemic respiratory failure: Problem comment: - due to pneumonia - present on admission - resolved Status: Resolved Plan This is a 64-year-old male with a history of alcohol abuse who was found by his son passed out and his home, covered in urine and confused. In the ER he was too weak to ambulate and was reportedly very unsteady. He had reported that his last drink was many days ago and his alcohol level was 0. He also has a history of uncontrolled hypertension and on admission was found to have anemia, confusion, right middle lobe pneumonia, severe protein calorie malnutrition, hyponatremia and acute hypoxemic respiratory failure for which he had supplemental oxygen. It appears he is going through alcohol withdrawal and is responding to treatment with p.r.n. Ativan. He remains on Zosyn for right middle lobe pneumonia, suspected to be aspiration, hyponatremia has improved and respiratory failure has resolved. He remains confused, suspect this is due to alcohol withdrawal, and is as of yet unable to take oral medications. Overall improving. Rehab at discharge. Medically ready, searching for placement. Total Time Spent Total Time Spent: Today I spent 35 minutes seeing the patient, reviewing Expanse and EPIC notes/diagnostics/labs, discussing the care plan with our care team that includes social work, PT/OT, pharmacy, RT, fci and documenting my impressions and plan in the medical record. Subjective Time Seen by Provider: 09:27 Date Seen: 02/15/25 Interval history: José Luis is joking and sitting up in the chair eating breakfast. He is feeling better and more like himself. He denies pain or SOB. He was seen by speech this morning, and she told me he did well and can have a regular diet. I spoke with José Luis about his need for rehab. He is agreeable to this. We discussed his h/o alcohol use and that he will need treatment for that as well, and he agreed. We talked about [facility] as a place where he might go. He is agreeable and wants to eventually get well enough to go home from rehab. Exam Narrative: Exam Narrative: General: No acute distress. Awake, alert, oriented to self, place and situation. No pallor. No jaundice. Cachectic. Oropharynx: Clear. Mucous membranes moist. Cardiovascular: Regular rate and rhythm. No murmurs, gallops, or rubs. Respiratory: Scattered crackles throughout, improving. No wheezes. Abdomen: Bowel sounds present. Soft, nondistended, nontender. Extremities: No lower extremity edema. Thin, muscle wasting evident. Const: Vital Signs, click to edit/add: Vital Signs - 24 hr 02/14/25 11:00 02/14/25 11:00 02/14/25 13:15 Temperature 95.7 F L 95.7 F L 97.2 F L Pulse Rate Pulse Rate [Pulse Oximeter] 89 89 116 H Respiratory Rate 22 20 16 Blood Pressure [Ri ght Arm] 198/112 H 138/82 160/105 H Pulse Oximetry 94 95 97 Oxygen Delivery Me thod Room Air Room Air Room Air Oxygen Flow Rate 0 0 02/14/25 15:00 02/14/25 15:00 02/14/25 15:00 Temperature 96.8 F L 96.8 F L Pulse Rate Pulse Rate [Pulse Oximeter] 84 84 Respiratory Rate 16 16 Blood Pressure [Ri ght Arm] 133/100 H 133/100 H Pulse Oximetry 97 97 94 Oxygen Delivery Me thod Room Air Room Air Oxygen Flow Rate 0 02/14/25 15:00 02/14/25 15:00 02/14/25 16:00 Temperature Pulse Rate 86 Pulse Rate [Pulse Oximeter] 84 Respiratory Rate 16 20 Blood Pressure [Ri ght Arm] Pulse Oximetry 94 Oxygen Delivery Me thod Room Air Oxygen Flow Rate 0 02/14/25 19:15 02/14/25 19:16 02/14/25 20:46 Temperature 97.8 F 97.8 F Pulse Rate 70 Pulse Rate [Pulse Oximeter] 78 78 Respiratory Rate 18 18 Blood Pressure [Ri ght Arm] 185/103 H 185/103 H Pulse Oximetry 98 98 Oxygen Delivery Me thod Room Air Room Air Oxygen Flow Rate 0 02/14/25 22:04 02/14/25 22:22 02/14/25 22:23 Temperature 97.1 F L 97.1 F L Pulse Rate Pulse Rate [Pulse Oximeter] 73 73 Respiratory Rate 16 16 Blood Pressure [Ri ght Arm] 157/87 H 157/87 H Pulse Oximetry 100 100 100 Oxygen Delivery Me thod Room Air Room Air Oxygen Flow Rate 0 02/14/25 22:25 02/14/25 22:26 02/15/25 02:58 Temperature 97 F L Pulse Rate Pulse Rate [Pulse Oximeter] 73 77 Respiratory Rate 16 16 18 Blood Pressure [Ri ght Arm] 177/104 H Pulse Oximetry 100 98 Oxygen Delivery Me thod Room Air Room Air Oxygen Flow Rate 0 02/15/25 03:00 Temperature 97 F L Pulse Rate Pulse Rate [Pulse Oximeter] 77 Respiratory Rate 18 Blood Pressure [Ri ght Arm] 177/104 H Pulse Oximetry 98 Oxygen Delivery Me thod Room Air Oxygen Flow Rate 0 Labs Labs: Laboratory Results - last 24 hr 02/14/25 02/15/25 18:45 06:09 WBC 9.32 RBC 3.90 L Hgb 12.8 L Hct 37.4 MCV 96 MCH 33 MCHC 34 RDW Coeff of Briana 13.5 Plt Count 247 Neut % (Auto) 57.3 Lymph % (Auto) 31.7 Frontier % (Auto) 9.0 Eos % (Auto) 1.1 Baso % (Auto) 0.3 Neut # (Auto) 5.34 Lymph # (Auto) 2.95 H Frontier # (Auto) 0.80 Eos # (Auto) 0.10 Baso # (Auto) 0.03 Abs Immat Gran (auto) 0.06 Imm/Tot Granulo (auto) 0.6 Sodium 132 L Potassium 3.0 L Chloride 93 L Carbon Dioxide 25 Anion Gap 14 BUN 9 Creatinine 0.8 Estimated Creat Clear 40.63 Estimated GFR 98 Glucose 79 Hemoglobin A1c 4.9 Calcium 8.5 Triglycerides 158 H Cholesterol 192 LDL Cholesterol, Calc 116 H HDL Cholesterol 44 Stool Occult Blood Negative
[2025-02-15] MEDS: POTASSIUM BICARB 25 MEQ EFFERVESCENT TAB PO (08:30)
[2025-02-15] MEDS: THIAMINE 100 MG TABLET PO (09:34)
[2025-02-15] MEDS: CHLORTHALIDONE 25 MG TABLET 12.5 MG PO (09:34)
[2025-02-15] MEDS: METOPROLOL TARTRATE 25 MG TABLET 12.5 MG PO ×2 (09:34→21:37)
[2025-02-15] MEDS: AMLODIPINE 10 MG TABLET PO (09:34)
[2025-02-15] MEDS: FOLIC ACID 1 MG TABLET PO (09:35)
[2025-02-15] MEDS: SODIUM CHLORIDE 0.9 % (FLUSH) 10 ML SYRINGE 5 ML IVF (09:35)
--- NOTE | 2025-02-15 10:32 | PC.SOCIAL ---
Addendum entered by CHRISTOPHER Moya 02/15/25 11:32: Discharge planning: PT/OT notes were secure emailed to admission staff at [facility]. Awaiting decision on admit. production line worker to follow up as needed. Original Note: Discharge planning: Per RN, son, Carlos, requested to speak with social media executive about discharge plans. Called son who states he is at work and can not talk there. He states he will visit pt this afternoon and will meet in person with social media executive at that time. Per , pt is requesting placement for short term rehab at [facility]. Called [facility] [phone] and spoke with diane, Sydni, who requested information me sent for evaluation for admit. production line worker secure emailed initial information to Sydni and will follow up by sending PT/OT notes when completed. production line worker to follow up as needed.
[2025-02-15 13:17] LABS: Potassium* 3.3 mmol/L (3.6-5.1)
[2025-02-15] MEDS: ACETAMINOPHEN 325 MG TABLET PO (13:43)
--- NOTE | 2025-02-15 16:03 | PC.SOCIAL ---
Discharge planning: Met with pt to discuss discharge plans. Pt was agreeable to possibility of [facility] where he [facility] get physical rehab and support to stop using alcohol all in the same program. However, when pt was told [facility] is 2 hours away from [place], he requested social services technician look for placement closer. cheese factory worker contacted [facility], [facility], [facility] and [facility]. Only [facility] stated they could evaluate pt for admit. Secure emailed packet to [facility] and [facility]. [place] back from Sydni at [facility] that they can accept pt for admit tomorrow 02/16/25. First 20 days will be covered fully by insurance. Days 21-100 will have a co-pay pt is responsible for if he is still in that facility. Contacted [facility] who stated they have not yet made a decision on admit and will call social services technician with decision. [facility] Adult Protection worker, Sarthak Packer [phone], came and visited pt at the hospital today and asked him about his home situation and safety. Sarthak states pt stated he is planning to go for rehab prior to returning home and gave Maeve permission to talk with his son, Carlos. Sarthak left a card in pt's room which he stated could be given to son if he wants to call Mara. Sarthak requested update on discharge plan when finalized and requested to be notified before discharge if pt refuses placement and is discharged home. cheese factory worker to follow up as needed.
[2025-02-15] MEDS: NICOTINE 2 MG LOZENGE BUCCAL (17:57)
[2025-02-15] MEDS: POTASSIUM CHLORIDE 10 MEQ CAPSULE ER PO (17:58)
[2025-02-15] MEDS: NICOTINE 21 MG PATCH 1 PATCH TRANSDERMA (17:58)
[2025-02-15] MEDS: ATORVASTATIN CALCIUM 10 MG TABLET 20 MG PO (21:37)
[2025-02-16] VITALS (14 sets, daily range): BP systolic 130–174; BP diastolic 93–106; PULSE 71–96; RESP 16–35; TEMP 36.3–36.6; O2SAT 45–95
--- NOTE | 2025-02-16 01:20 | PC.NURSE ---
At start of shift at 1900 this past chitra antonio RN reported to this insurance underwriter sales that pt's IV previously in place had come out. Nurses attempted to place new IV though unsuccessful. Brenda Gordon was updated regarding pt having several IVs that he has pulled out or have infiltrated. Brenda Gordon entered new order for po antibiotic due to inability to infuse IV antibiotic.
[2025-02-16] MEDS: OMEPRAZOLE 20 MG CAPSULE DR PO (06:08)
--- NOTE | 2025-02-16 06:22 | PC.NURSE ---
Pt is much improved from previous nights. Able ambulate to BR with walker and was continent of Bowel and urine. Cognition seems to have improved as well. Pt on Orals now. Dr PHAM with no IV since he kept ripping them out. LS still coarse but improved.
[2025-02-16 06:23] LABS: Chloride* 99 mmol/L (96-114)
[2025-02-16 06:24] LABS: Sodium* 134 mmol/L (135-149)
[2025-02-16 06:27] LABS: Anion Gap 9 mEq/L (7-15); Blood Urea Nitrogen* 9 mg/dL (7-30); Calcium* 8.7 mg/dL (8.4-10.6); Carbon Dioxide* 26 mmol/L (20-32); Creatinine* 0.8 mg/dL (0.5-1.5); Est. Creatinine Clearance* 42.29; Estimated Glomerular Filt Rate 98 ml/min; Glucose* 94 mg/dL (60-115)
[2025-02-16 06:34] LABS: Potassium* 2.6 mmol/L (3.6-5.1)
[2025-02-16] MEDS: POTASSIUM CHLORIDE 10 MEQ CAPSULE ER 40 MEQ PO (06:59)
[2025-02-16] MEDS: POTASSIUM CHLORIDE 10 MEQ CAPSULE ER PO (08:51)
[2025-02-16] MEDS: CHLORTHALIDONE 25 MG TABLET 12.5 MG PO (08:52)
[2025-02-16] MEDS: THIAMINE 100 MG TABLET PO (08:52)
[2025-02-16] MEDS: AMLODIPINE 10 MG TABLET PO (08:52)
[2025-02-16] MEDS: FOLIC ACID 1 MG TABLET PO (08:53)
[2025-02-16] MEDS: METOPROLOL TARTRATE 25 MG TABLET 12.5 MG PO ×2 (08:53→21:31)
--- NOTE | 2025-02-16 09:25 | CRLHL7_ITS ---
For Patients: As a result of the Century Cures Act, medical imaging exams and procedure reports are released immediately into your electronic medical record. You may view this report before your referring provider. If you have questions, please contact your health care provider. INDICATION: aspiration TECHNIQUE: Chest 1 view COMPARISON: 02/14/2025 FINDINGS: Cardiovascular and mediastinum: Heart size and vasculature are normal in caliber and appearance. Lungs and pleural spaces: Stable curvilinear densities in the right lung no pneumothorax. Bones and soft tissues: No significant findings. IMPRESSION: Stable densities in the right periphery. Dictated by Sim Colón MD @ 02/16/2025 9:56:42 AM (Electronically Signed)
[2025-02-16] MEDS: ALBUTEROL SULFATE 2.5 MG/3 ML VIAL.NEB NEB (09:35)
[2025-02-16 10:32] LABS: Potassium* 3.1 mmol/L (3.6-5.1)
--- NOTE | 2025-02-16 10:54 | RESP.RT ---
Patient up to chair, breathing regular/easy, shallow. On NC 3 Lpm SaO2 91%. Prompted patient to cough, fair/weak moist, congested, possible productive, patient swallowed secretions. CXRay right middle lobe density. BBS with scattered rales, rhonchi. Patient current smoker, and has ETOH issues. does not do Aerobika, well.
--- NOTE | 2025-02-16 11:19 | PC.SOCIAL ---
Addendum entered by CHRISTOPHER Moya 02/16/25 11:41: PAS completed and submitted and secure emailed to [facility], confirmation #[id number]. Original Note: Discharge planning: Received call back from [facility] stating they spoke with sonAndrew, and he wants pt to go to [facility] at discharge, not [facility]. Called sonAndrew, who confirmed he is supportive of pt going to [facility] where he will get the pt/ot and alcohol treatment needed. Son is aware pt could apply for MA if he needs alf placement and son could request evaluation by [facility] for transfer after pt has had rehab and substance treatment at [facility]. Son was appreciative of information provided. Met with pt who is aware and agrees with plan for discharge to [facility] tomorrow by ambulance. He is aware son is requesting this plan and will assist pt with looking for placement in [place] after a short term rehab stay at [facility] if continued facility care is needed. Son requested pt call him if he has any questions or concerns with this plan, [facility] was shared with pt. Spoke with Sydni at [facility] who is aware of plan for discharge tomorrow between - by EMS to their facility for short term rehab. She requested discharge information and PAS be emailed to her prior to discharge and that nurse to nurse be completed tomorrow to [phone] extension 2. bottling room worker to follow up as needed.
--- NOTE | 2025-02-16 12:10 | RESP.RT ---
Oxygen SaO2; Assisted Nurse and PT to walk patient to bathroom. Patient sitting in chair on room air, SaO2 86%, breathing regular/easy, good congested NPC. Walked patient to bathroom, SaO2 decreased to 81%, no complaint of SOB, placed patient on 3 Lpm NC for duration of walk, SaO2 increased to 87%. Patient comfortable, Breathing remains regular/easy, no complaint of SOB.
--- NOTE | 2025-02-16 15:07 | PC.NURSE ---
920: I was in with the patient administering medications, the patient was on his last bite of pudding that had a pill in it. The patient began to cough and I could audibly hear mucus gurgling through his mouth and noticed that his work of breathing was increased. I encouraged the patient to cough. Saturations at that time were >90%. I was pulled away, then upon reassessment the patient appeared to be dusky, saturations were noted to be in the 40's. Non rebreather was applied, the patients saturations began to recover. I also suctioned the patient. MD was present during this time, a albuterol neb was given. The patient has required NC @ 3L to maintain saturations per order. Chest xray was also obtained per order. On continuos pulse oximetry. Araceli GOULD BSN
--- NOTE | 2025-02-16 15:30 | PM.IMPN1 ---
Assessment and Plan Assessment and plan (1) RML pneumonia: Problem comment: - concern for aspiration, fever 02/12/25 - abx broadened to Zosyn 02/12, Speech therapy consult - improving. Speech therapy saw 02/12 and again 02/15 - Now on oral antibiotics on discharge, total course, 7 days Status: Acute (2) At risk for aspiration pneumonia: Problem comment: - given findings on CT and history of alcohol use disorder - on Zosyn - seen by speech therapy on 02/12/25; okay to feed if patient is awake and able to sit up, will require nurse bedside for feeding to monitor symptoms - 02/14 restarted home medications orally - 02/15 appreciate speech consult. Suspect aspiration was from intoxication - 02/16 aspiration event again today. I've asked speech therapy to see him again today. Status: Acute (3) Confusion: Problem comment: - ddx: acute illness, ETOH withdrawal. - chronic CVA on head CT 02/12 with unclear baseline for cognition - improving, likely close to baseline, MOCA 15/30 today, was 14/30 about a year ago. Status: Acute (4) Hyponatremia: Problem comment: - presumably 2/2 ETOH use disorder, improving, follow - 02/15 improved from admission, now 132, stable, likely was acute on chronic - 02/16 Na 134, stable Status: Acute (5) Hypokalemia: Problem comment: - Increase daily supplementation. Continue to replace orally as well. Status: Acute (6) Hypomagnesemia: Problem comment: - 12/6 Mg 1.4 today, replace and follow, check Magnesium - 02/14 Mg was 2.2 on recheck yesterday. Resolved. - 02/16 Mg 1.6. Status: Acute (7) Anemia: Problem comment: - baseline Hgb 13; 10.9 on 12.5; typically macrocytic but current MCV 98 - ddx: B12/Folate deficiency, nutritional, gastritis - hemoccult stool negative, stop PPI. Status: Acute (8) Alcohol use disorder: Problem comment: - skilled nursing ETOH overuse with sequela of anemia, elevated INR, elevated AST, hyponatremia Status: Acute (9) Protein-calorie malnutrition, severe: Problem comment: - as evidenced by low BMI, cachectic appearance, chronic ETOH use with sequela noted above - Nutrition consult; continue nutritional supplement Status: Acute (10) Hypertension: Problem comment: - prescriptions for Lisinopril, Chlorthalidone, Amlodipine, and Metoprolol, unclear compliance, has had letters from PCP requesting appt - IV Metoprolol, control withdrawal symptoms, restart other oral medications as tolerated - 02/13 BP elevated, HR in the 40s-50s. Stop IV metoprolol. Still not taking PO well. Will start Enalapril IV for HTN - 02/14 able to take po today. Stop IV hydralazine and enalapril. Start home amlodipine, HCTZ, lisinopril. Restart lower dose metoprolol (HR now 80s to 100s). - 02/15 BP improving. Continue amlodipine, lisinopril, HCTZ, and metoprolol. - 02/16 BP continues to improve, continue current regimen Status: Acute (11) Acute hypoxemic respiratory failure: Problem comment: - due to pneumonia - present on admission - resolved Status: Resolved Plan This is a 64-year-old male with a history of alcohol abuse who was found by his son passed out and his home, covered in urine and confused. In the ER he was too weak to ambulate and was reportedly very unsteady. He had reported that his last drink was many days ago and his alcohol level was 0. He also has a history of uncontrolled hypertension and on admission was found to have anemia, confusion, right middle lobe pneumonia, severe protein calorie malnutrition, hyponatremia and acute hypoxemic respiratory failure for which he had supplemental oxygen. It appears he is going through alcohol withdrawal and is responding to treatment with p.r.n. Ativan. He remains on Zosyn for right middle lobe pneumonia, suspected to be aspiration, hyponatremia has improved and respiratory failure has resolved. He remains confused, suspect this is due to alcohol withdrawal, and is as of yet unable to take oral medications. Overall improving. Rehab at discharge. Halina tomorrow after repeat speech eval. Total Time Spent Total Time Spent: Today I spent 50 minutes seeing the patient, reviewing [facility] and EPIC notes/diagnostics/labs, discussing the care plan with our care team that includes social work, PT/OT, pharmacy, RT, long term and documenting my impressions and plan in the medical record. Subjective Time Seen by Provider: 08:45 Date Seen: 02/16/25 Interval history: José Luis aspirated this morning while eating breakfast. I went to see him immediately. His sats were initially mid 50s, but came up to 89% with a nonrebreather. Afterward he felt fatigued. Exam Narrative: Exam Narrative: General: No acute distress. Awake, alert, oriented to self, place and situation. No pallor. No jaundice. Cachectic. Oropharynx: Clear. Mucous membranes moist. Cardiovascular: Regular rate and rhythm. No murmurs, gallops, or rubs. Respiratory: Upper airway crackles. Scattered crackles throughout, improving. No wheezes. Abdomen: Bowel sounds present. Soft, nondistended, nontender. Extremities: No lower extremity edema. Thin, muscle wasting evident. Const: Vital Signs, click to edit/add: Vital Signs - 24 hr 02/15/25 16:00 02/15/25 19:19 02/15/25 19:20 Temperature 97.7 F 97.7 F Pulse Rate 85 Pulse Rate [Pulse Oximeter] 73 73 Respiratory Rate 16 16 Blood Pressure [Ri ght Arm] 157/87 H 157/87 H Pulse Oximetry 97 97 Oxygen Delivery Me thod Room Air Room Air Oxygen Flow Rate 0 02/15/25 22:34 02/15/25 22:36 02/15/25 22:36 Temperature 97.6 F Pulse Rate Pulse Rate [Pulse Oximeter] 70 70 Respiratory Rate 16 16 16 Blood Pressure [Ri ght Arm] 116/76 Pulse Oximetry 94 94 Oxygen Delivery Me thod Room Air Room Air Oxygen Flow Rate 0 02/15/25 22:50 02/16/25 04:56 02/16/25 04:56 Temperature 97.6 F 97.6 F Pulse Rate 69 Pulse Rate [Pulse Oximeter] 71 71 Respiratory Rate 16 16 Blood Pressure [Ri ght Arm] 174/93 H 174/93 H Pulse Oximetry 94 94 Oxygen Delivery Me thod Room Air Room Air Oxygen Flow Rate 0 0 02/16/25 08:00 02/16/25 08:00 02/16/25 08:48 Temperature Pulse Rate 80 Pulse Rate [Pulse Oximeter] 85 Respiratory Rate 18 16 Blood Pressure [Ri ght Arm] Pulse Oximetry 93 Oxygen Delivery Me thod Room Air Oxygen Flow Rate 02/16/25 08:48 02/16/25 09:30 02/16/25 09:32 Temperature Pulse Rate Pulse Rate [Pulse Oximeter] 85 Respiratory Rate 16 35 H Blood Pressure [Ri ght Arm] 151/106 H Pulse Oximetry 93 45 L 65 L Oxygen Delivery Me thod Room Air Room Air Non Rebreather Mas k Oxygen Flow Rate 10 02/16/25 10:53 02/16/25 11:00 02/16/25 12:00 Temperature 97.8 F Pulse Rate Pulse Rate [Pulse Oximeter] Respiratory Rate 18 20 Blood Pressure [Ri t Arm] 130/93 H Pulse Oximetry 91 93 91 Oxygen Delivery Me thod Nasal Cannula Nasal Cannula Nasal Cannula Oxygen Flow Rate 3 3 3 Labs Labs: Laboratory Results - last 24 hr 02/16/25 02/16/25 05:34 10:03 Sodium 134 L Potassium 2.6 L* 3.1 L Chloride 99 Carbon Dioxide 26 Anion Gap 9 BUN 9 Creatinine 0.8 Estimated Creat Clear 42.29 Estimated GFR 98 Glucose 94 Calcium 8.7 Magnesium 1.6 Lab Acknowledgement Test Added
[2025-02-16] MEDS: POTASSIUM BICARB 25 MEQ EFFERVESCENT TAB PO ×2 (16:21→19:11)
[2025-02-16] MEDS: NICOTINE 21 MG PATCH 1 PATCH TRANSDERMA (19:12)
[2025-02-16] MEDS: POTASSIUM CHLORIDE 10 MEQ CAPSULE ER 20 MEQ PO (20:02)
[2025-02-16] MEDS: ATORVASTATIN CALCIUM 10 MG TABLET 20 MG PO (21:31)
[2025-02-17] VITALS (8 sets, daily range): BP systolic 115–141; BP diastolic 72–96; PULSE 83–92; RESP 16–18; TEMP 36.7–36.9; O2SAT 84–97
[2025-02-17 06:35] LABS: Chloride* 100 mmol/L (96-114); Potassium* 3.1 mmol/L (3.6-5.1); Sodium* 133 mmol/L (135-149)
[2025-02-17 06:38] LABS: Anion Gap 4 mEq/L (7-15); Blood Urea Nitrogen* 12 mg/dL (7-30); Calcium* 8.8 mg/dL (8.4-10.6); Carbon Dioxide* 29 mmol/L (20-32); Creatinine* 0.8 mg/dL (0.5-1.5); Est. Creatinine Clearance* 42.24; Estimated Glomerular Filt Rate 98 ml/min; Glucose* 88 mg/dL (60-115)
--- NOTE | 2025-02-17 07:19 | PC.NURSE ---
End of shift: Pt pleasant,?alert?and oriented to self,?place?and month, though struggled with year.?Pt had periods of forgetfulness.?Pt does get?slightly?tachy?with movement (110s),?though?recovers quickly. Pt on 2L NC when awake?and 2L?oxymask?while at rest.?Otherwise,?VSS. Tele reads NSR.?Denies pain. Lung sounds have coarse crackles throughout. 1a with walker and gait belt. Pt incontinent/continent.?No IV?in?place.?Pt in bed, appears to be resting, call light within reach.??
--- NOTE | 2025-02-17 08:02 | CRLHL7_ITS ---
For Patients: As a result of the Cures Act, medical imaging exams and procedure reports are released immediately into your electronic medical record. You may view this report before your referring provider. If you have questions, please contact your health care provider. INDICATION: Aspiration. No other history given. COMPARISON: Prior studies, the most recent dated 02/16/2025. Comparison is also made to a chest CT dated 02/12/2025. TECHNIQUE: Single AP view of the chest. FINDINGS: Medical Devices: None. Lung Volumes: Adequate inspiration. No significant atelectasis. Lungs: Redemonstration of a cavitary lesion in the anterior segment of the right upper lobe without significant interval change. Skin folds projecting over the peripheral left lung base are noted incidentally. Pleura and Pleural spaces: No significant pleural effusion. No pneumothorax. Mediastinum: Normal cardiomediastinal silhouette. Bony Thorax and Soft Tissues: No significant incidental findings. IMPRESSION: Stable radiographic examination of the chest. Redemonstration of a cavitary lesion in the anterior segment of the right upper lobe without significant interval change. Differential diagnostic considerations include the sequela of infection. Please refer to the chest CT report dated 02/12/2025 for additional details. Dictated by Jamie Asif MD @ 02/17/2025 8:57:59 AM (Electronically Signed)
--- NOTE | 2025-02-17 08:22 | PM.DS1 ---
DS: Providers Provider Time Seen by Provider: 07:20 Date Seen: 02/17/25 Date of admission: 02/12/25 02:30 Primary care physician: Not a Local Provider Admitting Clinician: Lillian Salazar MD Consults: 02/12/25 02:09 Consult to Printing And Stamping Supervisor [CONS] Routine Comment: Reason for Consult:: Substance Abuse Screening 02/12/25 09:35 Consult to Speech Therapy [CONS] Routine Comment: Reason(s) for Speech Consult:: Swallowing Difficulty Comment: aspiration 02/13/25 15:04 Consult to Nutrition [CONS] Routine Comment: Reason for consult:: Nutritional Consult 02/15/25 08:37 Consult to Occupational Therapy [CONS] Routine Comment: Reason(s) for OT Consult:: Evaluate and Treat Any Restrictions?:: No Restrictions Comment: MOCA Consult to Physical Therapy [CONS] Routine Comment: Reason(s) for PT Consult:: Evaluate and Treat Any Restrictions?:: No Restrictions Attending Physician on discharge: Claudine Brown MD Date of Discharge: 02/17/25 DS: Diagnosis Discharge Diagnosis (1) RML pneumonia: Status: Acute Problem details: - concern for aspiration, fever 02/12/25 - abx broadened to Zosyn 02/12, Speech therapy consult - improving. Speech therapy saw 02/12 and again 02/15 - Now on oral antibiotics on discharge, total course is 6 days so far. Due to suspected aspiration event yesterday, will extend course to 10 days total. Will order nebs prn for rehab. (2) Aspiration into airway: Status: Suspected Problem details: - Aspiration event vs mucous plug yesterday morning. He was again evaluated by speech therapy yesterday and demonstrated adequate swallowing with no recommendations for change to his diet. Satting well on RA today. (3) At risk for aspiration pneumonia: Status: Acute Problem details: - given findings on CT and history of alcohol use disorder - on Zosyn - seen by speech therapy on 02/12/25; okay to feed if patient is awake and able to sit up, will require nurse bedside for feeding to monitor symptoms - 02/14 restarted home medications orally - 02/15 appreciate speech consult. Suspect aspiration was from intoxication - 02/16 aspiration event again today. I've asked speech therapy to see him again today. - 02/17 as above (4) Confusion: Status: Acute Problem details: - ddx: acute illness, ETOH withdrawal. - chronic CVA on head CT 02/12 with unclear baseline for cognition - stable over the last 3 days, much improved from admission, this is likely his baseline, MOCA 15/30 today, was 14/30 about a year ago. (5) Hyponatremia: Status: Acute Problem details: - presumably 2/2 ETOH use disorder, improving, follow - 02/15 improved from admission, now 132, stable, likely was acute on chronic - 02/16 Na 134, stable - 02/17 Na 133, stable, asymptomatic, stopping chlorthalidone due to hypokalemia, recheck in 1 week (6) Hypokalemia: Status: Acute Problem details: - Improving. Oral replacement today. BP this morning was wnl. Trial of stopping chlorthalidone, which will decrease potassium excretion through kidneys. Continue daily supplementation. Recheck in 1 week (7) Hypomagnesemia: Status: Acute Problem details: - 12/6 Mg 1.4 today, replace and follow, check Magnesium - 12/7 Mg was 2.2 on recheck yesterday. Resolved. - 02/16 Mg 1.6. (8) Anemia: Status: Acute Problem details: - baseline Hgb 13; 10.9 on 12.5; typically macrocytic but current MCV 98 - ddx: B12/Folate deficiency, nutritional, gastritis - hemoccult stool negative, stop PPI. vit B12 and folate supplementation as outpatient (9) Alcohol use disorder: Status: Acute Problem details: - residential ETOH overuse with sequela of anemia, elevated INR, elevated AST, hyponatremia (10) Protein-calorie malnutrition, severe: Status: Acute Problem details: - as evidenced by low BMI, cachectic appearance, chronic ETOH use with sequela noted above - Nutrition consult; continue nutritional supplement (11) Uncontrolled hypertension: Status: Acute Problem details: - suspect he had not been taking outpatient medications; improving now on antihypertensives (12) Hypertension: Status: Acute Problem details: - prescriptions for Lisinopril, Chlorthalidone, Amlodipine, and Metoprolol, unclear compliance, has had letters from PCP requesting appt - IV Metoprolol, control withdrawal symptoms, restart other oral medications as tolerated - 02/13 BP elevated, HR in the 40s-50s. Stop IV metoprolol. Still not taking PO well. Will start Enalapril IV for HTN - 02/14 able to take po today. Stop IV hydralazine and enalapril. Start home amlodipine, HCTZ, lisinopril. Restart lower dose metoprolol (HR now 80s to 100s). - 02/15 BP improving. Continue amlodipine, lisinopril, HCTZ, and metoprolol. - 02/16 BP continues to improve, continue current regimen - 02/17 BP wnl this am, hold chlorthalidone due to hypokalemia. If this needs to be restarted as outpatient, potassium will need to be managed closely with it. (13) Acute hypoxemic respiratory failure: Status: Resolved Problem details: - due to pneumonia - present on admission - resolved (14) Hyperlipidemia: Status: Acute Problem details: - chronic infarcts, bilateral carotid atherosclerosis, elevated LDL, increase atorvastatin to high-dose therapy (15) Carotid atherosclerosis: Status: Acute Problem details: - seen on cervical spine CT 02/14/2025 - start aspirin and increase atorvastatin high-dose therapy (16) Lacunar infarction: Status: Acute Problem details: - Seen on CT 0525 in 02/14/2025, these are chronic, not acute - start daily aspirin and increase atorvastatin above DS: Summary Hospital Course Hospital Course: Per H&P: José Luis Hanson is seen as an Interactive Telehealth visit. José Luis Hanson is a 64 year old male who has h/o alcohol abuse in the past, admitted about a year and a half ago with alcohol withdrawal but did not end up going to treatment presents today when son found him at home passed out. Patient was covered in urine, and seemed to be confused, so he was brought in to be evaluated. He was too weak to ambulate, and he was reportedly very unsteady. His alcohol level was 0, states that his last drink was many days ago, over 10 days ago. Reportedly he drinks about a pint to a pint and a half of vodka daily. He also has a history of alcohol withdrawal seizures, as well as hypertension. He was saturating in the mid 80s on room air, so he was given 2 L of supplemental oxygen. His lungs are coarse, chest x-ray shows possible right middle lobe infiltrate. Sodium was low at 126, elevated lactate as well. He tested negative for COVID, RSV, influenza. Temperature is within normal limits at 97.8, UA was negative. With his confusion and hypoxia as well as low sodium, he will be admitted for further management. José Luis was admitted on IV antibiotics, CIWA protocol, and electrolyte replacement. He did go through alcohol withdrawal through the weekend and could not take anything orally. As he cleared we were able to advance his diet and had further evaluation by speech therapy. Yesterday he had an event that appeared to be aspiration, although could have been mucus plug. He cleared this and did well afterward and was again evaluated by speech therapy and the recommendations were for no change in diet. Today he is doing well and in improved condition for discharge to rehab. Please see diagnoses above for full details. Time Spent with Patient Time attestation: Total time spent providing and/or coordinating discharge services: Today I spent 50 minutes seeing and discharging the patient, reviewing Expanse and EPIC notes/diagnostics/labs, discussing the care plan with our care team that includes social work, PT/OT, pharmacy, RT, prison and documenting my impressions and plan in the medical record. Exam Narrative: Exam Narrative: General: No acute distress. Awake, alert, oriented to self, place and situation. No pallor. No jaundice. Cachectic. Oropharynx: Clear. Mucous membranes moist. Cardiovascular: Regular rate and rhythm. No murmurs, gallops, or rubs. Respiratory: No labored breathing. Rhales, no crackles. No wheezes. Abdomen: Bowel sounds present. Soft, nondistended, nontender. Extremities: No lower extremity edema. Thin, muscle wasting evident. Const: Vital Signs, click to edit/add: Vital Signs - 24 hr 02/16/25 08:48 02/16/25 08:48 02/16/25 09:30 Temperature Pulse Rate Pulse Rate [Pulse Oximeter] 85 Respiratory Rate 16 16 35 H Blood Pressure [Ri ght Arm] 151/106 H Pulse Oximetry 93 93 45 L Oxygen Delivery Me thod Room Air Room Air Room Air Oxygen Flow Rate 02/16/25 09:32 02/16/25 10:53 02/16/25 11:00 Temperature 97.8 F Pulse Rate Pulse Rate [Pulse Oximeter] 90 Respiratory Rate 18 20 Blood Pressure [Ri ght Arm] 130/93 H Pulse Oximetry 65 L 91 93 Oxygen Delivery Me thod Non Rebreather Mas k Nasal Cannula Nasal Cannula Oxygen Flow Rate 10 3 3 02/16/25 12:00 02/16/25 15:00 02/16/25 15:00 Temperature 97.4 F L Pulse Rate Pulse Rate [Pulse Oximeter] 96 96 Respiratory Rate 20 Blood Pressure [Ri ght Arm] 146/96 H Pulse Oximetry 91 91 Oxygen Delivery Me thod Nasal Cannula Nasal Cannula Oxygen Flow Rate 3 3 02/16/25 15:00 02/16/25 19:45 02/16/25 20:00 Temperature 97.6 F 97.6 F Pulse Rate Pulse Rate [Pulse Oximeter] 94 94 Respiratory Rate 18 18 Blood Pressure [Ri ght Arm] 142/96 H 142/96 H Pulse Oximetry 92 94 94 Oxygen Delivery Me thod Nasal Cannula BiPA P Nasal Cannula Nasal Cannula Oxygen Flow Rate 2 2 2 02/16/25 22:50 02/16/25 23:00 02/16/25 23:00 Temperature Pulse Rate 80 Pulse Rate [Pulse Oximeter] 88 Respiratory Rate 18 Blood Pressure [Ri ght Arm] Pulse Oximetry 95 Oxygen Delivery Me thod Nasal Cannula Oxygen Flow Rate 2 02/16/25 23:10 02/17/25 03:13 02/17/25 04:12 Temperature 97.6 F 98.5 F 98.5 F Pulse Rate Pulse Rate [Pulse Oximeter] 88 84 84 Respiratory Rate 18 16 16 Blood Pressure [Ri ght Arm] 152/98 H 115/72 115/72 Pulse Oximetry 95 97 97 Oxygen Delivery Me thod Room Air OxyMask OxyMask Oxygen Flow Rate 2 2 02/17/25 06:56 02/17/25 08:03 02/17/25 08:03 Temperature 98.2 F Pulse Rate 84 Pulse Rate [Pulse Oximeter] 92 Respiratory Rate 18 18 Blood Pressure [Ri ght Arm] 141/96 H Pulse Oximetry 94 94 Oxygen Delivery Me thod Room Air Room Air Oxygen Flow Rate 02/17/25 08:05 Temperature Pulse Rate Pulse Rate [Pulse Oximeter] 92 Respiratory Rate 18 Blood Pressure [Ri ght Arm] Pulse Oximetry Oxygen Delivery Me thod Oxygen Flow Rate DS: Data Data Completed and Pending Completed studies during hospitalization: 02/13/2025 EKG: Sinus bradycardia, 55 beats per minute, otherwise normal EKG. Ordering Physician: Sim Godfrey M.D. Date of Service: 02/12/25 Procedure(s): CT head/brain wo con Accession Number(s): [id number] cc: Sim Godfrey M.D.; Provider,Not a Local~ For Patients: As a result of the Cures Act, medical imaging exams and procedure reports are released immediately into your electronic medical record. You may view this report before your referring provider. If you have questions, please contact your health care provider. Indication: Left-sided weakness Technique: Noncontrast CT through the head with multiplanar reformats Comparison: MR brain performed 08/22/2023 Findings: Brain: No acute hemorrhage. No acute infarct. No significant mass effect or midline shift. No gross evidence of a mass lesion or cerebral edema. Severe chronic senescent disease. Chronic lacunar infarcts in the bilateral thalami. Ventricles: No acute abnormality appreciated. Orbits, sinuses, mastoids: Mild sinus mucosal thickening in the left maxillary sinus air-fluid level are present. Calvarium and soft tissues: No acute abnormality appreciated. Impression: 1. 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 2. Question acute left maxillary sinusitis. Please note that all CT scans at this facility use dose modulation, iterative reconstruction, and/or weight-based dosing when appropriate to reduce radiation dose to as low as reasonably achievable. Dictated by Gilberto Padilla MD @ 02/12/2025 12:30:45 AM (Electronically Signed) Ordering Physician: Sim Godfrey M.D. Date of Service: 02/12/25 Procedure(s): XR chest 1V portable Accession Number(s): [id number] cc: Sim Godfrey M.D.; Provider,Not a Local~ For Patients: As a result of the Cures Act, medical imaging exams and procedure reports are released immediately into your electronic medical record. You may view this report before your referring provider. If you have questions, please contact your health care provider. INDICATION: Hypoxia. TECHNIQUE: Chest 1 view. COMPARISON: Chest radiograph 08/19/2023. FINDINGS: Cardiovascular: Heart size and pulmonary vasculature are within normal limits. Overlying cardiac monitoring leads. Lungs and pleural spaces: There is a new streaky opacity in the right midlung. No sign of pleural effusion or pneumothorax. Bones and soft tissues: No significant findings. IMPRESSION: Streaky opacity in the right midlung may represent atelectasis or infiltrate. Dictated by Shayy Bobo MD @ 02/12/2025 1:24:33 AM (Electronically Signed) Ordering Physician: Kristen Bernstein M.D. Date of Service: 02/12/25 Procedure(s): CT chest wo con Accession Number(s): [id number] cc: Kristen Bernstein M.D.; Provider,Not a Local~ For Patients: As a result of the Cures Act, medical imaging exams and procedure reports are released immediately into your electronic medical record. You may view this report before your referring provider. If you have questions, please contact your health care provider. INDICATION: Fever, pneumonia TECHNIQUE: CT chest without contrast. COMPARISON: Same day chest radiograph FINDINGS: Lungs and pleura: Layering bubbly opacities in the lower trachea and bilateral mainstem bronchi. Right upper lobe elongated cavitary consolidation measuring 2.3 x 3.1 cm. Additional scattered ground-glass and tree-in-bud nodular opacities in the right lower lobe. Mild bronchial wall thickening in the left lower lobe. No pleural effusions, pleural thickening, or pneumothorax. Heart and vasculature: Heart size is normal. Thoracic aorta and pulmonary artery are normal in caliber. Moderate to severe coronary calcifications. Atherosclerotic calcifications of the thoracic aorta and branch vasculature. Lymph nodes/mediastinum: No mediastinal, hilar, or axillary adenopathy. Chest wall: No masses. Upper abdomen: Severe circumferential atherosclerotic calcifications of the visualized abdominal aorta. Left hepatic lobe hypoattenuating lesion measuring 1 cm, possibly a cyst in the absence of malignancy history Bones: Unremarkable for age. IMPRESSION: 1. Multifocal pneumonia with dominant right upper lobe elongated cavitary consolidation measuring up 3.1 cm. 2. Layering bubbly opacities in the lower trachea and bilateral mainstem bronchi raise concern for aspiration 3. Severe atherosclerotic calcifications, predominantly within the visualized abdominal aorta Please note that all CT scans at this facility use dose modulation, iterative reconstruction, and/or weight-based dosing when appropriate to reduce radiation dose to as low as reasonably achievable. Dictated by Giselle Gonsalez MD @ 02/12/2025 9:05:38 AM (Electronically Signed) Ordering Physician: Claudine Brown M.D. Date of Service: 02/14/25 Procedure(s): XR chest 1V portable Accession Number(s): [id number] cc: Claudine Brown M.D.; Provider,Not a Local~ For Patients: As a result of the Cures Act, medical imaging exams and procedure reports are released immediately into your electronic medical record. You may view this report before your referring provider. If you have questions, please contact your health care provider. INDICATION: Pulmonary crackles. TECHNIQUE: Chest 1 views. COMPARISON: 02/12/2025. FINDINGS: The focal airspace opacities within right mid lung grossly unchanged and better evaluated on CT on 02/12/2025. No new airspace opacities or consolidation. No significant pleural effusion. No pneumothorax is seen. Heart size and mediastinal contours are stable. IMPRESSION: 1. Grossly stable focal airspace opacities within the right mid lung, better evaluated on chest CT dated 02/12/2025. Please refer to that report. Dictated by Pranav Enciso MD @ 02/14/2025 9:57:29 AM (Electronically Signed) Ordering Physician: Claudine Brown M.D. Date of Service: 02/14/25 Procedure(s): CT cervical spine wo con Accession Number(s): [id number] cc: Claudine Brown M.D.; Provider,Not a Local~ For Patients: As a result of the Cures Act, medical imaging exams and procedure reports are released immediately into your electronic medical record. You may view this report before your referring provider. If you have questions, please contact your health care provider. INDICATION: Unwitnessed fall. Hit head left side. TECHNIQUE: Axial CT cuts were performed from the skull base to the upper thoracic spine. The images were formatted and reviewed in the sagittal, axial and coronal planes. The craniocervical and cervicothoracic junctions are normally aligned. There is narrowing of the C5-6 and C6-7 intervertebral disc spaces with small anterior and posterior marginal osteophytes. There is multilevel degenerative facet throughout. C2-3, there is no disc herniation, central spinal stenosis or foraminal stenosis. At C3-4, there is no disc herniation, central spinal stenosis or foraminal stenosis. C4-5, there is no disc herniation, central spinal stenosis or foraminal stenosis. At C5-6, there is mild posterior osteophytic spurring causing a mild reduction in the AP diameter of the central spinal canal. There is prominent bilateral Luschka joint spurring worse on the right side causing severe bilateral foraminal narrowing worse on the right. At C6-7, there is bilateral Luschka joint spurring causing severe bilateral foraminal narrowing worse on the right side. There is a mild reduction in the AP diameter of the central spinal canal. C7-T1, there is no disc herniation or central canal stenosis. There is moderate bilateral foraminal narrowing worse on the right side. There is extensive atherosclerotic calcification of both carotid bifurcations IMPRESSION: 1. Negative for fracture or dislocation. 2. Degenerative changes as described above. 3. Extensive atherosclerotic calcification within both carotid bifurcations Please note that all CT scans at this facility use dose modulation, iterative reconstruction, and/or weight-based dosing when appropriate to reduce radiation dose to as low as reasonably achievable. Dictated by Scot Jamil MD @ 02/14/2025 2:11:57 PM (Electronically Signed) Ordering Physician: Claudine Brown M.D. Date of Service: 02/14/25 Procedure(s): CT head/brain wo con Accession Number(s): [id number] cc: Claudine Brown M.D.; Provider,Not a Local~ For Patients: As a result of the Century Cures Act, medical imaging exams and procedure reports are released immediately into your electronic medical record. You may view this report before your referring provider. If you have questions, please contact your health care provider. INDICATION: Unwitnessed fall. Altered mental status. Hit left side of head. TECHNIQUE: Axial noncontrast CT cuts were performed from the skull base to the vertex. COMPARISON: 02/26/2021. FINDINGS: There is advanced cerebral volume for a patient of this relatively young age. There are chronic bilateral thalamic lacunar infarcts. There is no intracranial mass, hemorrhage cortical infarction or contusion. There is no midline shift or transtentorial herniation. The calvarium is intact. There is mild mucosal thickening within the ethmoid sinuses and maxillary sinuses bilaterally. The orbits appear normal. IMPRESSION: 1. Advanced cerebral volume loss for a patient of this relatively young age. 2. Chronic bilateral thalamic lacunar infarcts. 3. No acute intracranial abnormality. Please note that all CT scans at this facility use dose modulation, iterative reconstruction, and/or weight-based dosing when appropriate to reduce radiation dose to as low as reasonably achievable. Dictated by Scot Jamil MD @ 02/14/2025 2:05:20 PM (Electronically Signed) Ordering Physician: Claudine Brown M.D. Date of Service: 02/16/25 Procedure(s): XR chest 1V portable Accession Number(s): [id number] cc: Claudine Brown M.D.; Provider,Not a Local~ For Patients: As a result of the Cures Act, medical imaging exams and procedure reports are released immediately into your electronic medical record. You may view this report before your referring provider. If you have questions, please contact your health care provider. INDICATION: aspiration TECHNIQUE: Chest 1 view COMPARISON: 02/14/2025 FINDINGS: Cardiovascular and mediastinum: Heart size and vasculature are normal in caliber and appearance. Lungs and pleural spaces: Stable curvilinear densities in the right lung no pneumothorax. Bones and soft tissues: No significant findings. IMPRESSION: Stable densities in the right periphery. Dictated by Sim Colón MD @ 02/16/2025 9:56:42 AM (Electronically Signed) Ordering Physician: Claudine Brown M.D. Date of Service: 02/17/25 Procedure(s): XR chest 1V portable Accession Number(s): [id number] cc: Claudine Brown M.D.; Provider,Not a Local~ For Patients: As a result of the Cures Act, medical imaging exams and procedure reports are released immediately into your electronic medical record. You may view this report before your referring provider. If you have questions, please contact your health care provider. INDICATION: Aspiration. No other history given. COMPARISON: Prior studies, the most recent dated 02/16/2025. Comparison is also made to a chest CT dated 02/12/2025. TECHNIQUE: Single AP view of the chest. FINDINGS: Medical Devices: None. Lung Volumes: Adequate inspiration. No significant atelectasis. Lungs: Redemonstration of a cavitary lesion in the anterior segment of the right upper lobe without significant interval change. Skin folds projecting over the peripheral left lung base are noted incidentally. Pleura and Pleural spaces: No significant pleural effusion. No pneumothorax. Mediastinum: Normal cardiomediastinal silhouette. Bony Thorax and Soft Tissues: No significant incidental findings. IMPRESSION: Stable radiographic examination of the chest. Redemonstration of a cavitary lesion in the anterior segment of the right upper lobe without significant interval change. Differential diagnostic considerations include the sequela of infection. Please refer to the chest CT report dated 02/12/2025 for additional details. Dictated by Jamie Asif MD @ 02/17/2025 8:57:59 AM (Electronically Signed) Labs on day of discharge: Labs from last 24 hours 02/17/25 02/16/25 02/16/25 05:57 10:03 05:34 Sodium 133 L Potassium 3.1 L 3.1 L Chloride 100 Carbon Dioxide 29 Anion Gap 4 L BUN 12 Creatinine 0.8 Estimated Creat Clear 42.24 Estimated GFR 98 Glucose 88 Calcium 8.8 Magnesium 1.6 Lab Acknowledgement Test Added Discharge Plan Discharge Disposition: [facility] Date of Admission: 02/12/25 02:30 Attending Provider on Discharge: Claudine Brown Primary Care Provider: Provider,Not a Local Condition: Stable Anticipated Discharge Date/Time: 02/17/25 09:32 Discharge Medications: New albuterol sulfate 2.5 mg /3 mL (0.083 %) Solution For Nebulization 2.5 mg NEB Q4H PRN (Reason: Dyspnea) Qty: 90 0RF amoxicillin-pot clavulanate 875-125 mg Tablet 1 tab PO BIDWM 4 Days Qty: 8 0RF atorvastatin 40 mg tablet 40 mg PO HS Qty: 30 0RF potassium chloride 10 mEq Capsule, Extended Release 20 meq PO DAILYWM Qty: 10 0RF nicotine 21 mg/24 hr Patch 24 Hour 1 patch transdermal Q24H Qty: 14 0RF metoprolol tartrate 25 mg Tablet 12.5 mg PO BID Qty: 60 0RF vitamin U97-[id number] acid 500-400 mcg tablet 1 tab PO DAILY Qty: 30 0RF Rx Instructions: administer with a meal aspirin 81 mg capsule 81 mg PO DAILY Qty: 30 0RF Continued amlodipine 10 mg Tablet 10 mg PO DAILY Qty: 30 0RF lisinopril 40 mg tablet 40 mg PO DAILY Qty: 30 0RF thiamine mononitrate (vit B1) 100 mg tablet 100 mg PO DAILY Discontinued folic acid 1 mg Tablet 1 mg PO DAILY Qty: 30 0RF metoprolol succinate 50 mg tablet extended release 24 hr 50 mg PO DAILY Qty: 30 0RF atorvastatin 20 mg tablet 20 mg PO HS chlorthalidone 25 mg tablet 12.5 mg PO DAILY Discharge Orders: Discharge Order (Routine); Ordered 02/17/25 Ordered By: Claudine Brown Activity Level: Other Activity Detail: Per PT notes Discharge Diet: Heart Healthy (2 gm sodium, low fat) Diet Detail: nutritional supplements TID Follow Up Appointments: Provider,Not a Local [Primary Care Provider, Family Practice] Forms: [facility] Info Instructions Admit to: SNF Discharge Potential: Good Length of Stay: <30 days Code Status: Full Code Rehab Potential: Good Therapy: Physical Therapy and Occupational Therapy Therapy Orders: Evaluate and Treat Oxygen: Yes Oxygen Delivery Method: Nasal Cannula Oxygen Flow Rate: 3 LPM Lab Orders: Hgb, BMP, LFTs in one week Orders are good >30 days: No Signature: Claudine Brown MD
--- NOTE | 2025-02-17 08:41 | RESP.RT ---
Patient lying on right side in bed, on room air, SaO2 94%. Voice is clear, patient breathing regular/easy. BBS, patient has slight congested rales noted, inspiratory/expiratory, clears when prompted to cough, cough is congested, patient swallows secretions. Cough is fair to forceful, able to clear secretions.
[2025-02-17] MEDS: FOLIC ACID 1 MG TABLET PO (08:59)
[2025-02-17] MEDS: METOPROLOL TARTRATE 25 MG TABLET 12.5 MG PO (08:59)
[2025-02-17] MEDS: AMLODIPINE 10 MG TABLET PO (09:00)
[2025-02-17] MEDS: POTASSIUM BICARB 25 MEQ EFFERVESCENT TAB PO ×2 (09:00→09:49)
[2025-02-17] MEDS: THIAMINE 100 MG TABLET PO (09:00)
[2025-02-17] MEDS: POTASSIUM CHLORIDE 10 MEQ CAPSULE ER 20 MEQ PO (09:01)
--- NOTE | 2025-02-17 09:40 | RESP.RT ---
Oxygen; Patient transfer to from bed to chair, and activity of walking to bathroom, decreased SaO2 82% on room air. Sitting in chair SaO2 with no activity, decreased to 84% on room air. Patient placed on 3 Lpm NC to to maintain SaO2 >90%.
--- NOTE | 2025-02-17 14:19 | PC.NURSE ---
End of shift:pt has been pleasant he is alert x2. off on date. Pt is on 2-3L NC when awake?RT did see him today/. he was 84 % on RA. no SOB. Tele reads NSR. ?Denies pain. he is up with 1 assist with walker and gait belt. Pt incontinent/continent.?Brief is on. No IV?in?place. call light within reach.?
== END 2025-02-17 14:50 | DRG 177 ==
LOC: ED 02-12 01:59 → MEDSURG 02-12 02:28
PROVIDERS: Family Medicine; Internal Medicine; Admitting Provider Family Medicine; Emergency Provider Family Medicine; Visit Provider Family Medicine
DX: J69.0 Pneumonitis due to inhalation of food and vomit (principal); E43 Unspecified severe protein-calorie malnutrition; J96.01 Acute respiratory failure with hypoxia; F10.231 Alcohol dependence with withdrawal delirium; E87.1 Hypo-osmolality and hyponatremia; Z68.1 Body mass index [BMI] 19.9 or less, adult; R64 Cachexia; F10.27 Alcohol dependence with alcohol-induced persisting dementia; E87.6 Hypokalemia; I10 Essential (primary) hypertension; R13.10 Dysphagia, unspecified; D53.9 Nutritional anemia, unspecified; E83.42 Hypomagnesemia; I65.23 Occlusion and stenosis of bilateral carotid arteries; Y92.230 Patient room in hospital as the place of occurrence of the external cause; W07.XXXA Fall from chair, initial encounter; E78.5 Hyperlipidemia, unspecified; Z86.73 Personal history of transient ischemic attack (TIA), and cerebral infarction without residual deficits
CPT/HCPCS: 36415; 70450; 71045; 71250; 72125; 80048; 80053; 80061; 80076; 81001; 81003; 82077; 82270; 82803; 83036; 83605; 83690; 83735; 84132; 85018; 85025; 85610; 87040; 87081; 87086; 87631; 92526; 92610; 93005; 94640; 94761; 97110; 97116; 97162; 97165; 97530; 97535; 99284; 99285; 99291; A9270; J0360; J0456; J0696; J1938; J2060; J2470; J2543; J2560; J3360; J3411; J3475; J3480; J7030; J7050; S4990

== ENCOUNTER 2025-02-17 14:36 | Outpatient (CLI) | payer MEDICARE, SELFPAY | END 2025-02-17 14:37 | disposition home or self-care (01) | LOC: AMB 02-18 19:05 | PROVIDERS: Visit Provider Family Medicine | DX: J18.9 Pneumonia, unspecified organism (principal) | CPT/HCPCS: A0425; A0428 ==